=== PATIENT | female | born 1980 | race Caucasian/White ===

== ENCOUNTER 2020-09-06 18:09 | Emergency (ER) | payer OTHER ==
--- OUTSIDE RECORDS SUMMARY | 2020-09-06 18:15 | XMS REPORT | Continuity of Care Document ---
:1980 Author Organization [facility] t Address [address] [place] [address] Care Team Providers Name Role Phone KittyTonio woodward Attending Clinician Gina THOMPSON C Attending Clinician Megan FERMIN L Attending Clinician Doctor Unassigned, Name Attending Clinician Unavailable Problems Condition Condition Condition Status Onset Resolution Last Treating Co mments Source Name Details Category Date Date Treatment Clinician Date 625.9 - Diagnosis Active 2014-02-19 Me moria FEM 03-10 11:07:00 l GENITAL 625.9 - 00:01: Edin n SYM FEM 00 GENITAL SYM Active 03/10/2013 [facility] ELEVATED Diagnosis Active 2011-07-10 M emoria BLOOD 07-09 14:37:00 l PRESSURES ELEVATED 11:12: Her rooney BLOOD 00 PRESSURES Active 07/09/2011 [place] CONTRACTIO Diagnosis Active 2010-072011-06-29 Memoria NS, TWIN 11:02:00 l GESTATIONS 11:20: Edin n CONTRACTIO 00 NS, TWIN GESTATIONS Active 06/28/2011 [facility] ELEVATED Diagnosis Active 2010-072011-06-29 M emoria BLOOD 08-27 11:02:00 l PRESSURE ELEVATED 15:02: Herm ivana AND BLOOD 00 HEADACHE PRESSURE AND HEADACHE Active 06/26/2011 [facility] Diagnosis Active 2011-07-11 Memoria RELATED 08-29 12:42:00 l 00:00: Jasen 00 RELATED Active 08/29/2010 [facility] Vaginal Problem Resolve 2020-08-25 Mem oria delivery d 01:06:45 l (finding) Vaginal Herm ivana delivery (finding) Resolved Problem 08/25/2020 [facility] Cervical Problem Active 2011-07-07 Mem oria 10:30:36 l Cervical Edin n Active Problem 07/07/2011 [facility], [facility] Hiatal Problem Active 2011-07-07 Memor ia hernia 10:30:36 l Hiatal Miranda hernia Active Problem 07/07/2011 [facility], [facility] Hypertensi Problem Active 2011-07-07 M emoria on 10:30:36 l Jasen Hypertensi on Active Problem 2 1gestation al [facility], [facility] Laparoscop Problem Active 2011-07-07 M emoria ic sleeve 10:30:36 l gastrectom Edin n y Laparoscop ic sleeve gastrectom y Active Problem 07/07/2011 [facility], [place] Migraine Problem Active 2011-07-07 Mem oria 10:30:36 l Migraine Edin n Active Problem 07/07/2011 [facility], [facility] Pain Problem Active 2011-07-07 Memor ia 10:30:36 l Pain Jasen Active Problem 07/07/2011 [facility] Sleep Problem Active 2011-07-07 Memor ia apnea 10:30:36 l Sleep Jasen apnea Active Problem 07/07/2011 [facility], [place] Dizziness Problem Active 2020-08-25 Me moria (finding) 01:06:45 l Miranda Dizziness (finding) Active Problem 08/25/2020 [facility] Hiatal Problem Active 2020-08-25 Memor ia hernia 01:06:45 l (disorder) Hiatal Herm ivana hernia (disorder) Active Problem 08/25/2020 [facility] Hyperlipid Problem Active 2020-08-25 M emoria emia 01:06:45 l (disorder) Edin n Hyperlipid emia (disorder) Active Problem 08/25/2020 [facility] Hypertensi Problem Active 2020-08-25 M emoria ve 01:06:45 l disorder, Miranda systemic Hypertensi arterial ve (disorder) disorder, systemic arterial (disorder) Active Problem 08/25/2020 gestation al [facility] Laparoscop Problem Active 2020-08-25 M emoria ic sleeve 01:06:45 l gastrectom Edin n y Laparoscop (procedure ic sleeve ) gastrectom y (procedure ) Active Problem 08/25/2020 [facility] Migraine Problem Active 2020-08-25 Mem oria (disorder) 01:06:45 l Migraine Edin n (disorder) Active Problem 08/25/2020 [facility] Morbid Problem Active 2020-08-25 Memor ia obesity 01:06:45 l (disorder) Morbid Herm ivana obesity (disorder) Active Problem 08/25/2020 [facility] Neck pain Problem Active 2020-08-25 Me moria (finding) 01:06:45 l Neck Miranda pain (finding) Active Problem 08/25/2020 [facility] Pain Problem Active 2020-08-25 Memor ia (finding) 01:06:45 l Pain Miranda (finding) Active Problem 08/25/2020 [facility] Sleep Problem Active 2020-08-25 Memor ia apnea 01:06:45 l (finding) Sleep Edin n apnea (finding) Active Problem 08/25/2020 [facility] Paresthesi Problem Active 2020-08-25 M emoria a 01:06:45 l (finding) Miranda Paresthesi a (finding) Active Problem 08/25/2020 [facility] Cervical Problem Active 2020-08-25 Mem oria spondylosi 01:06:45 l s Cervical Edin n (disorder) spondylosi s (disorder) Active Problem 08/25/2020 [facility] 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 01:06:45 l (disorder) Edin n Hypervitam inosis B6 (disorder) Active Problem 08/25/2020 [facility] NORMAL Diagnosis Active 2011-07-10 Mem oria DELIVERY 14:37:00 l NORMAL Jasen DELIVERY Active [facility] Allergies, Adverse Reactions, Alerts Allergy Allergy Status Severity Reaction(s) Onset Inactive Treating Comm ents Source Name Type Date Date Clinician No Known No Known Active Memori a Medicati Medicati l on on Jasen Allergie Allergie s s Social History Smoking Status Start Date Stop Date Source Social History 2020-08-22 20:15:08 2020-08-22 20:15:08 [facility] Medications Ordered Filled Start Stop Current Ordering Indication Dosage Frequency Signature Comments Components Source Medication Medication Date Date Medication? Clinician (SIG) Name Name baclofen 10 Yes 10 mg = 1 M emoria mg oral 2-22 tab, PO, l tablet 20:28: BID, # 60 Edin n 00 tab, 3 Refill(s), Pharmacy: [id number], 165.1, cm, 08/22/20 14:11:00 [employer], Height, 122.727, kg, 08/22/20 14:11:00 [employer], Weight prazosin 2 Yes 2 mg = 1 Mem oria mg oral 2-22 cap, PO, l capsule 20:26: TID, 0 Miranda 00 Refill(s) tizanidine 2019-07 Yes 2 mg = 1 Mem oria 2 MG Oral 1-13 cap, PO, l Capsule 15:42: Bedtime, # Herm ivana [Zanaflex] 00 30 cap, 3 Refill(s), Pharmacy: [id number], 165.1, cm, 05/13/20 9:19:00 [employer] E[employer]IST, Height, 121.364, kg, 05/13/20 9:19:00 [employer]IST, Weight metoprolol 2019-07 Yes 50 mg, PO, M emoria tartrate 1-13 Daily, 0 l 15:26: Refill(s) Miranda Ibuprofen 2019-0 Yes 4 tablets, Me moria 200 MG Oral 9-25 As needed, l Tablet 22:49: 0 Miranda [Advil] 00 Refill(s) buPROPion 2019-0 Yes One Memoria 75 mg oral 9-25 tablet, l tablet 22:49: Twice a Miranda 00 day morning and afternoon, 0 Refill(s) diazepam 5 2019-0 No 1 tablet, Me moria mg oral 9-25 As needed, l tablet 22:49: 0 Miranda 00 Refill(s) lisinopril 2020-0 Yes 40 mg, Memor ia 40 mg oral 9-25 Once a l tablet 22:49: day, 0 Miranda 00 Refill(s) metFORMIN 2020-0 Yes 500 mg, Memor ia 500 mg oral 9-25 Once a l tablet, 22:49: day, 0 Miranda extended 00 Refill(s) release omeprazole 2019-0 Yes 1-2 Memoria 10 mg oral 9-25 tablets, l delayed 22:49: Daily, 0 Edin n release 00 Refill(s) capsule rosuvastati 2019-0 Yes One Memori a n 20 mg 9-25 tablet, l oral tablet 22:49: Once with H ermann 00 evening meal, 0 Refill(s) topiramate 2019-0 No 1 tablet, Me moria 50 MG Oral 9-25 Twice a l Tablet 22:49: day, 0 Miranda [Topamax] 00 Refill(s) vortioxetin 2019-0 Yes 1 tablet, M emoria e 10 MG 9-25 Once a day l Oral Tablet 22:49: at Edin n [Trintellix 00 bedtime, 0 ] Refill(s) Stadol 2010-07 No Dontae R 2 mg, 1 Gilberto chino 2-30 [place] mL, Route: l 00:48: IVP, Drug form: INJ, Q3H, PRN Pain, Start date: 06/28/11 18:48:00, Duration: 30 day, Stop date: 07/28/11 18:47:00 Ambien 2010-07 No Dontae R 5 mg, 1 Gilberto chino 2-30 [place] tab, l 00:47: Route: PO, Jasen 00 Drug form: TAB, Bedtime, PRN Insomnia, Start date: 06/28/11 18:47:00, Duration: 30 day, Stop date: 07/28/11 18:46:00 famotidine 2010-07 No Dontae R 20 mg, 2 Memoria 2-29 [place] mL, Route: l 20:00: IVP, Drug form: INJ, ONCALL, Start date: 06/28/11 14:00:00, Duration: 30 day, Stop date: 07/28/11 13:59:00 carboprost 2010-07 No Dontae R 250 Mem oria 2-29 [place] microgram, l 20:00: 1 mL, Miranda 00 Route: IM, Drug form: INJ, ONCALL, Start date: 06/28/11 14:00:00, Duration: 30 day, Stop date: 07/28/11 13:59:00 misoprostol 2010-07 No Dontae R 1,000 M emoria 2-29 [place] microgram, l 20:00: 5 tab, Jasen 00 Route: CA, Drug form: TAB, ONCALL, Start date: 06/28/11 14:00:00, Duration: 1 doses or times methylergon 2010-07 No Dontae R 0.2 mg, 1 Memoria ovine 2-29 [place] mL, Route: l 20:00: IM, Drug Jasen form: INJ, ONCALL, Start date: 06/28/11 14:00:00, Duration: 30 day, Stop date: 07/28/11 13:59:00 citric 2010-07 No Dontae R 30 ml, Memor ia acid-sodium - [place] Route: PO, l citrate 20:00: Drug Form: Herm ivana 00 SOLNAMIRAALL, Start date: 06/28/11 14:00:00, Duration: 30 day, Stop date: 07/28/11 13:59:00 oxytocin-ad 2010-07 No Dontae R 20 unit, 2 Memoria d to 2-29 [place] mL, Route: l current IV 20:00: INJ, Drug He rm form: SOLN, ONCALL, Start date: 06/28/11 14:00:00, Duration: 2 day, Stop date: 06/30/11 13:59:00 metoclopram 2010-07 No Dontae R 10 mg, 2 Memoria tamiko 2-29 [place] mL, Route: l 20:00: IVP, Drug Miranda 00 form: INJ, ONCALL, Start date: 06/28/11 14:00:00, Duration: 30 day, Stop date: 07/28/11 13:59:00 ondansetron 2010-07 No Dontae R 4 mg, 2 Memoria 2-29 [place] mL, Route: l 19:23: IVP, Drug Miranda 00 form: INJ, Q8H, PRN Nausea & Vomiting, Start date: 06/28/11 13:23:00, Duration: 30 day, Stop date: 07/28/11 13:22:00 promethazin 2010-07 No Dontae R 12.5 mg, Memoria e 2-29 [place] 0.5 mL, l 19:23: Route: IM, Miranda 00 Drug form: INJ, Q4H, PRN Nausea & Vomiting, Start date: 06/28/11 13:23:00, Duration: 30 day, Stop date: 07/28/11 13:22:00 lidocaine 2010-07 No Dontae R 20 ml, Me moria 1% Route: l 19:23: PERCUT, Jasen 00 Drug Form: INJ, PRN, PRN Other -See Comment, Start date: 06/28/11 13:23:00, Duration: 1 doses or times, Stop date: Limited # of times terbutaline 2010-07 No Dontae R 0.25 mg, Memoria [place] 0.25 mL, l 19:23: Route: Miranda 00 SUB-Q, Drug form: INJ, PRN, PRN Other -See Comment, Start date: 06/28/11 13:23:00, Duration: 1 doses or times, Stop date: Limited # of times ibuprofen 2010-07 No Dontae R 800 mg, 1 Memoria tab, l 19:23: Route: PO, Jasen 00 Drug form: TAB, Q8H, PRN Other -See Comment, Start date: 06/28/11 13:23:00, Duration: 30 day, Stop date: 07/28/11 13:22:00 butorphanol 2010-07 No Dontae R 2 mg, 1 Memoria en mL, Route: l 19:23: IVP, Drug form: INJ, Q2H, PRN Pain Score 6-10, Start date: 06/28/11 13:23:00, Duration: 30 day, Stop date: 07/28/11 13:22:00 acetaminoph 2010-07 No Dontae R 1 tab, Memoria en-hydrocod Route: PO, l one 325 19:23: Drug Form: Herm ivana mg-5 mg 00 TAB, Q4H, oral tablet PRN Pain Score 1-3, Start date: 06/28/11 13:23:00, Duration: 30 day, Stop date: 07/28/11 13:22:00 Lactated 2010-07 No Dontae R 1,000 mL, Memoria Ringers Rate: 100 l Injection 19:23: ml/hr, Edin n IV 1,000 mL 00 Infuse over: 10 hr, Route: IV, Total Volume: 1,000, Bolus for regional anesthesia per unit protocol, Start date: 06/28/11 13:23:00, Duration: 30 day, Stop date: 07/28/11 13:22:00 Lactated 2010-07 No Dontae R 20 unit, M emoria Ringers [place] 1,000 mL, l 1000ml+Tariq 19:23: Rate: 125 H ermann gildardo 20 00 ml/hr, units IV Infuse (Premix) 20 over: 8 unit hr, Route: IV, Total Volume: 1,000 mL, Start date: 06/28/11 13:23:00, Duration: 2 day, Stop date: 06/30/11 13:22:00, Replace Every: 8 hr Lactated 2010-07 No Dontae R 1,000 mL, Memoria Ringers IV en Rate: 125 l 1,000 mL 19:23: ml/hr, Jasen 00 Infuse over: 8 hr, Route: IV, Total Volume: 1,000, Start date: 06/28/11 13:23:00, Duration: 30 day, Stop date: 07/28/11 13:22:00 Adderall 10 2010-07 Yes 1 tab, PO, Memoria mg oral 2-27 BID, PRN, l tablet 23:03: anxiety, Jasen 19 Substituti on Allowed, TAB Non-Formula 2010-07 Yes 1 tab, PO, Memoria ry Home 2-27 Daily, l Medication 23:02: Substituti H ermann 06 on Allowed influenza 2009-07 No SYSTEM 0.5 ml, Mem oria virus 0-13 SYSTEM Route: IM, l vaccine, 03:00: Drug Form: Her rooney inactivated 00 INJ, ONCALL, Start date: 04/11/10 22:00:00, Duration: 1 doses or times Vital Signs Vital Name Observation Time Observation Value Comments Source Systolic (mm Hg) 2020-08-22 20:11:00 Gilberto Aggarwal Diastolic (mm Hg) 2020-08-22 20:11:00 [facility] reza Aggarwal Heart Rate 2020-08-22 20:11:00 [facility] Jasen Respitory Rate 2020-08-22 20:11:00 Memori al Miranda Height 2020-08-22 20:11:00 165.1 cm [facility] Miranda Weight 2020-08-22 20:11:00 [facility] Miranda BMI Calculated 2020-08-22 20:11:00 Memori al Miranda Systolic (mm Hg) 2020-05-13 15:19:00 Gilberto rial Miranda Diastolic (mm Hg) 2020-05-13 15:19:00 Mem orial Jasen Heart Rate 2020-05-13 15:19:00 [facility] Miranda Respitory Rate 2020-05-13 15:19:00 Memori al Miranda Height 2020-05-13 15:19:00 165.1 cm Memorial Jasen Weight 2020-05-13 15:19:00 [facility] Jasen BMI Calculated 2020-05-13 15:19:00 Memori al Miranda Systolic (mm Hg) 2020-04-08 13:17:00 Gilberto rial Jasen Diastolic (mm Hg) 2020-04-08 13:17:00 Mem orial Miranda Heart Rate 2020-04-08 13:17:00 [facility] Jasen Respitory Rate 2020-04-08 13:17:00 Memori al Miranda Height 2020-04-08 13:17:00 167.64 cm Memorial Jasen Weight 2020-04-08 13:17:00 [facility] Jasen BMI Calculated 2020-04-08 13:17:00 Memori al Miranda Systolic (mm Hg) 2020-03-25 15:31:00 Gilberto rial Jasen Diastolic (mm Hg) 2020-03-25 15:31:00 Mem orial Jasen Heart Rate 2020-03-25 15:31:00 [facility] Jasen Respitory Rate 2020-03-25 15:31:00 Memori al Miranda Height 2020-03-25 15:31:00 167.64 cm [facility] Miranda Weight 2020-03-25 15:31:00 [facility] Jasen BMI Calculated 2020-03-25 15:31:00 Memori al Miranda Weight 2011-06-28 18:02:00 [facility] Miranda Height 2011-06-28 18:02:00 167.64 cm Memorial Miranda Height 2011-06-26 21:51:00 170.18 cm Memorial Jasen Weight 2011-06-26 21:51:00 [facility] Jasen Procedures This patient has no known procedures. Encounters Start End Encounter Admission Attending Care Care Encounter Source Date/Time Date/Time Type Type Clinicians Facility Department ID 2020-08-22 2020-08-22 Outpatient SORAYA WhitfieldSENIA [id number] 13:45:00 23:59:59 Jan 04 Tonio 2020-08-16 2020-08-16 Outpatient SORAYA WhitfieldSENIA [id number] 09:15:00 09:15:00 Jan 03 Tonio 2020-08-09 2020-08-09 [facility] [id number] 06:35:36 23:59:00 Encounter Nasra BURKS [id number] [facility] [id number] CENTER AT [id number] FREDERICKJustine 815 [facility] 2020-07-14 2020-07-14 Office [facility] [id number] 13:05:29 14:20:37 Visit Eliza Renee [id number] [place] [id number] Profmert [id number] [facility] [address] [facility] 2020-07-14 2020-07-14 Orders Doctor SHILPA [id number] 00:00:00 00:00:00 Only Unassigned, MARY [id number] [place] [facility] [id number] 2020-05-13 2020-05-13 Outpatient Kittycrissy DARYLSENIA MOREIRAASIFPAUL [id number] 09:15:00 23:59:59 Jan 02 Tonio 2020-04-08 2020-04-08 Outpatient Kittycrissy BESSYPAUL MOREIRAASIFPAUL [id number] 08:15:00 23:59:59 Jan Tonio 2020-03-25 2020-03-25 Outpatient Nahid BESSYPAUL BESSYPAUL [id number] 10:15:00 23:59:59 Jan 00 [facility] Results Test Description Test Time Test Comments Results Result [facility] e Comments HEMATOLOGY 2011-06-28 71.9 [facility] 21:00:00 Miranda HEMATOLOGY 2011-06-28 1.8 [facility] 21:00:00 Miranda HEMATOLOGY 2011-06-28 6.5 [facility] 21:00:00 Miranda HEMATOLOGY 2011-06-28 0.5 [facility] 21:00:00 Miranda HEMATOLOGY 2011-06-28 0.6 [facility] 21:00:00 Miranda HEMATOLOGY 2011-06-28 0.0 [facility] 21:00:00 Miranda HEMATOLOGY 2011-06-28 0.0 [facility] 21:00:00 Miranda IMMUNOLOGY 2011-06-28 Non Reactive [facility] 21:00:00 (06/28/2011 Miranda 15:00:00) IMMUNOLOGY 2011-06-28 Negative [facility] 21:00:00 *NA*(06/28/2011 Miranda 15:00:00) HEMATOLOGY 2011-06-28 90.8 [facility] 21:00:00 Miranda HEMATOLOGY 2011-06-28 34.0 [facility] 21:00:00 Miranda HEMATOLOGY 2011-06-28 32.0 [facility] 21:00:00 Miranda HEMATOLOGY 2011-06-28 10.9 [facility] 21:00:00 Miranda HEMATOLOGY 2011-06-28 8.0 [facility] 21:00:00 Miranda HEMATOLOGY 2011-06-28 21:00:00 Test Item Value Reference Range Interpretation Comme nts MCH (test code = MCH) 30.8 pg 27.0-31.0 N [facility] SvoxnxrKAGEVBCUAH7013-32-84 21:00:70400Odbpuhbv HermannHEMATOLOGY 2011-06-28 21:00:0015.9[facility] QafiibcKLKHXYXHRK5036-29-23 21:00:009.0[facility] KboarldJYHWRMCTRU9112-21-06 21:00:003.52[facility] TgtpzvaJBTXCGFUVX7650-07-49 21:00:0020.6[facility] DlzgxmfNHOYWFUZQI7784-01-15 21:00:000.2[facility] Miranda QLMDEEXKHM6208-21-22 21:00:006.8[facility] AQCYQEY7138-52-94 20:40:00Negative (06/28/2011 14:40:00)[facility] RESULTS 2011-06-28 20:40:00See Note 1(06/28/2011 14:40:00)[facility] HermannIMMUNOLOGY 2011-06-28 20:40:00>500.0[facility] OiciyxeGAOTPGBFMU9633-43-86 20:40:00 Negative *NA*(06/28/2011 14:40:00)[facility] LixueptQGEOHHJQY0661-79-07 22:10:00 4.3[facility] YeuvgooBPSUBXWNF0536-73-13 22:10:42230Dtohgodb HermannCHEMISTRY 2011-06-26 22:10:0016[facility] UedsbjdHUWOHXTEV2928-23-64 22:10:79833Cqfmqywn JknxrmsRRKCOQCAA0382-03-76 22:10:000.2[facility] HylzbuxKBNFXVEXW3239-36-72 22:10:006[facility] BogrbwwLESEOLUGR6807-03-23 22:10:002.4[facility] Jasen APVHHZFQW6539-39-39 22:10:0018[facility] FlwjupmEYCPJNWEY2733-50-65 22:10:0091 Memorial XryzwjcJVJMVVCSP3963-83-51 22:10:04849Mjojtdbb HermannCHEMISTRY 2011-06-26 22:10:000.8[facility] DxdtythPPNFRPHCL8965-42-15 22:10:004.3[facility] JeitnybHGLSUJKSM6027-36-83 22:10:22621Htkxbgek LptquhkWLCOAQLTC9903-61-80 22:10:0023[facility] ZglzpxpNPKLIQDOY2689-21-37 22:10:005.8[facility] Jasen XINWOMPJD4544-30-25 22:10:008.3[facility] JwnmkmeDAJEBTZCO3419-99-43 22:10:000.7 Memorial XipzlucFKXQSLXLZ6055-85-05 22:10:003.4[facility] HermannCHEMISTRY 2011-06-26 22:10:008[facility] EsvstiwLSOLALLFL3424-11-72 22:10:0014.3[facility] WqocdamMHAQFMEIGB9625-86-13 22:10:54587Lqprppzr BxjabjkNDYLSISEHI9306-81-58 22:10:00 Test Item Value Reference Range Interpretation Comments PT (test code = PT) 12.0 s 12.0-14.7 N [facility] DjywlmbUMZTSFJFDH1980-03-78 22:10:00 Test Item Value Reference Range Interpretation Comments PTT (test code = PTT) 25.6 s 22.9-35.8 N Memorial LeopdzvRDVQQHSCOP8300-08-06 22:10:000.88[facility] HermannHEMATOLOGY 2011-06-26 22:10:007.5[facility] FsphbkfQHUFBKQVHN3801-35-84 22:10:0090.5[facility] OntgyrjHFYVEXTAHR1662-11-54 22:10:00859Gthasalm JcuczxxNXTOVRLKMA5749-94-68 22:10:00 Test Item Value Reference Range Interpretation Comments MCH (test code = MCH) 31.1 pg 27.0-31.0 H Memorial RbmftjnTYZXCWJDMZ3549-31-83 22:10:0016.2[facility] HermannHEMATOLOGY 2011-06-26 22:10:0034.4[facility] RljntyhFQEGQKMTQU1244-00-38 22:10:0032.2[facility] LktkhijLZRVAJIFZA1511-21-03 22:10:0011.1[facility] EvnovbdTAIICYSXEE8751-69-19 22:10:006.7[facility] NqoddgpQWOFMBLFGE4185-61-29 22:10:003.55[facility] Jasen GQDQNZCLJH2378-74-64 22:10:000.6[facility] DroasumUCRNSNUILS4680-14-87 22:10:004.4 [facility] ScsribvHHBYPAFDST4766-65-72 22:10:000.3[facility] HermannHEMATOLOGY 2011-06-26 22:10:000.6[facility] IqdxpjsIXYQLHGNHN5237-47-55 22:10:001.7[facility] IsybjsaPUXQOJHIEE3542-59-88 22:10:000.0[facility] PjeqxyyLUZKJHPTNU1588-11-54 22:10:000.0[facility] IphmdzyCUSADXFFSC6532-90-95 22:10:008.5[facility] Miranda CECZHEQHSK0227-35-73 22:10:0025.6[facility] YymnzkfKFSRACIJBC7429-55-70 22:10:00 65.0[facility] IprfgteWLZMRWNHVS2059-35-12 22:10:000-2 /HPF (06/26/2011 16:10:00) [facility]KogamacLMKYQWYFGI2825-46-10 22:10:00Few /HPF (06/26/2011 16:10:00) [facility] CenterLikokpmOKTKLPHGYI1639-56-38 22:10:00None Seen (06/26/2011 16:10:00) [facility] CenterKkiongiRRSJWVALZK9850-61-68 22:10:00Occasional /LPF (06/26/2011 16:10:00)[facility] CenterKscquwiTWRYSYBJDG3950-47-22 22:10:00 Test Item Value Reference Range Interpretation Comments UA Spec Grav (test code = UA Spec 1.010 1 N Grav) [facility] CenterGfhoxdkORPLKLCEDL8193-45-81 22:10:00 Test Item Value Reference Range Interpretation Comments UA pH (test code = UA pH) 7.0 1 5.0-8.0 N [facility] CenterEhpprozOWXCAWOUFQ6815-44-91 22:10:00Negative mg/dL (06/26/2011 16:10:00)[facility] CenterOgobhofDFXYSCSGEQ9762-12-72 22:10:00Negative mg/dL (06/26/2011 16:10:00)[facility] CenterNuqzsuwKHVXYJPWTJ3742-10-93 22:10:00Negative mg/dL *NA*(06/26/2011 16:10:00)[facility] CenterFcuscacUOLASSTEBU1127-69-72 22:10:00Negative *NA*(06/26/2011 16:10:00)[facility] CenterRaonkfuLFMHEDXTOV7103-04-73 22:10:000.2 [facility] CenterSmtemffSMNAWBNOCT4588-32-82 22:10:00Negative (06/26/2011 16:10:00) [facility] CenterVarnhztDAXDENLQIK4531-13-35 22:10:00Negative (06/26/2011 16:10:00) [facility] CenterWuitvflKAUPBGYHSP2344-82-06 22:10:00Negative (06/26/2011 16:10:00) [facility] CenterKyovbmrVHHMISGSBE4574-80-38 22:10:00Yellow *NA*(06/26/2011 16:10:00) [facility] CenterRcsinrlODRUOKQMFE1035-36-37 22:10:00Clear (06/26/2011 16:10:00)[facility] Jasen
[2020-09-06 19:07] LABS: Absolute Lymphocytes (CBC) 1.7 K/uL (0.7-4.9); Hematocrit 33.8 % (36.0-45.0); Lymphocytes % 26.9 % (15.3-44.8); MPV 7.7 fL (7.6-11.3); RBC Red Blood Cell Count 3.79 M/uL (3.86-4.86)
--- NOTE | 2020-09-06 19:14 | RAD REPORT ---
EXAM DESCRIPTION: RAD - Chest Single View - 09/06/2020 7:06 pm CLINICAL HISTORY: syncope, hypertension, shortness of breath COMPARISON: None TECHNIQUE: AP portable chest image was obtained 09/06/2020 7:06 pm . FINDINGS: Lung volumes are low. Large body habitus further limits the examination. No acute lung par enchymal process seen. No failure or volume overload. Heart and vasculature are normal. No measurable pleural effusion and no pneumothorax. No acute bony abnormality seen. No acute aortic findings suspe cted. IMPRESSION: No acute cardiopulmonary process.
[2020-09-06 19:22] LABS: Protime INR 0.92
[2020-09-06] MEDS ORDERED: NA CHLORIDE 0.9% 1,000 ML ONE (19:47)
[2020-09-06 19:54] LABS: ALT/SGPT 25 U/L (12-78); AST/SGOT 15 U/L (15-37); Albumin 2.9 g/dL (3.4-5.0); Alkaline Phosphatase 47 U/L (45-117); BUN Blood Urea Nitrogen 15 mg/dL (7-18); Bicarbonate 23 mmol/L (21-32); Bilirubin Direct < 0.1 mg/dL (0-0.2); Bilirubin Total 0.1 mg/dL (0.2-1.0); Glucose Level 127 mg/dL (74-106); Magnesium 1.9 mg/dL (1.8-2.4); NT PRO-BNP 125 pg/mL (<125); Potassium 3.9 mmol/L (3.5-5.1); Protein, Total 6.2 g/dL (6.4-8.2); Sodium Level 142 mmol/L (136-145); Troponin (Emerg Dept Use Only) < 0.02 ng/mL (0.0-0.045)
--- NOTE | 2020-09-06 20:04 | RAD REPORT ---
EXAM DESCRIPTION: CT - Head Brain Wo Cont - 09/06/2020 7:14 pm CLINICAL HISTORY: AMS COMPARISON: <Comparisons> TECHNIQUE: Axial 5 mm thick images of the head were obtained without IV contrast. All CT scans are performed using dose optimization technique as appropriate and may include automated exposure control or mA/KV adjustment according to patient size. FINDINGS: No intracranial hemorrhage, mass, edema or shift of mid-line structures. No acute infarcti on changes seen. No abnormal extra-axial fluid collections. Ventricles are normal. Mastoid air cells and visualized portions of the paranasal sinuses are clear. No acute bony findings. IMPRESSION: Negative non-contrast CT head examination.
[2020-09-06 21:15] LABS: Barbiturates NEGATIVE (NEGATIVE); Benzodiazepines NEGATIVE (NEGATIVE); Cocaine NEGATIVE (NEGATIVE); METHAMPHETAM NEGATIVE (NEGATIVE); Methadone NEGATIVE (NEGATIVE); Opiates NEGATIVE (NEGATIVE); Phencyclidine NEGATIVE (NEGATIVE); THC Cannibis NEGATIVE (NEGATIVE)
--- NOTE | 2020-09-06 21:34 | EDPHYS ---
Physician Documentation [facility] Name: Shelley Frank Age: 40 yrs Sex: Female : 1980 Arrival Date: 09/06/2020 Time: 18:18 Bed 20 Private MD: ED Physician Nitish Avila HPI: 09/06 19:44 This 40 yrs old Female presents to ER via EMS with complaints of jmm syncope/seizure. 19:44 The patient has experienced syncope. Onset: The symptoms/episode began/occurred jmm acutely, just prior to arrival, today. Associated injury: The patient did not suffer any apparent associated injury. Associated signs and symptoms: Pertinent positives: dizziness, Pertinent negatives: abdominal pain. This is a 40 year old female with a history of POTS, anxiety, DM, HTN that presents to the ED after becoming unconscious at a restaurant. Patient states states she awoke to EMS being called. states he witnessed seizure like convulsions. states the patient did urinate on herself. Denies dental/tongue injury. . 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 - Social history:: Smoking status: Patient denies any tobacco usage or history of. Smoking status: Patient reports the use of cigarette tobacco products, smokes one pack cigarettes per day. ROS: 19:44 Constitutional: Negative for fever, chills, and weight loss, Cardiovascular: Negative jmm for chest pain, palpitations, and edema, Respiratory: Negative for shortness of breath, cough, wheezing, and pleuritic chest pain. 19:44 Neuro: Positive for seizure activity, syncope. 19:44 All other systems are negative. Exam: 19:44 Constitutional: This is a well developed, well nourished patient who is awake, alert, jmm and in no acute distress. Head/Face: atraumatic. Eyes: EOMI, no conjunctival erythema appreciated ENT: Moist Mucus Membranes Neck: Trachea midline, Supple Chest/axilla: Normal chest wall appearance and motion. Cardiovascular: Regular rate and rhythm. No edema appreciated Respiratory: Normal respirations, no respiratory distress appreciated Abdomen/GI: Non distended, soft Back: Normal ROM Skin: General appearance color normal MS/ Extremity: Moves all extremities, no obvious deformities appreciated, no edema noted to the lower extremities 19:44 Neuro: Orientation: is normal, Mentation: is normal, Memory: is normal. 19:44 Psych: Behavior/mood is pleasant, cooperative. Vital Signs: 18:38 BP 84 / 48; Pulse 112; Resp 20; Pulse Ox 91% on R/A; bw 18:45 BP 120 / 76; Pulse 73; Resp 16; Temp 97.9; Pulse Ox 99% on R/A; Pain 6/10; hb 18:54 BP 103 / 58; Pulse 76; Resp 22; Pulse Ox 100% on 2 lpm NC; Pain 0/10; bw 20:30 BP 109 / 54; Pulse 67; Resp 16; Pulse Ox 100% ; wh 21:45 BP 101 / 64; Pulse 72; Resp 18; Pulse Ox 98% on R/A; wh MDM: 18:29 Patient medically screened. [facility] 21:29 Data reviewed: vital signs, nurses notes. Counseling: I had a detailed discussion with sridhar the patient and/or guardian regarding: the historical points, exam findings, and any diagnostic results supporting the discharge/admit diagnosis, lab results, radiology results, the need for outpatient follow up, to return to the emergency department if symptoms worsen or persist or if there are any questions or concerns that arise at home. ED course: Patient is alert, states she is feeling better. Differential would include syncope vs seizure. Advised of the need to follow up with neuro. I discussed the need for observation due to the different character. Patient states she will return to the ED if symptoms return or worsen. . 09/06 18:30 Order name: Basic Metabolic Panel [facility] 09/06 18:30 Order name: CBC with Diff [facility] 09/06 18:30 Order name: LFT's; Complete Time: 19:58 [facility] 09/06 18:30 Order name: Magnesium; Complete Time: 19:58 [facility] 09/06 18:30 Order name: NT PRO-BNP; Complete Time: 19:58 [facility] 09/06 18:30 Order name: PT-INR; Complete Time: 19:37 [facility] 09/06 18:30 Order name: Troponin (emerg Dept Use Only); Complete Time: 19:58 [facility] 09/06 18:30 Order name: Basic Metabolic Panel; Complete Time: 19:58 [facility] 09/06 18:30 Order name: CBC with Automated Diff; Complete Time: 19:18 [facility] 09/06 18:45 Order name: Urine Drug Screen [facility] 09/06 18:45 Order name: Acetaminophen [facility] 09/06 18:46 Order name: ETOH Level; Complete Time: 19:55 [facility] 09/06 18:46 Order name: Ptt, Activated; Complete Time: 19:37 [facility] 09/06 18:46 Order name: Salicylate; Complete Time: 19:55 [facility] 09/06 18:30 Order name: XRAY Chest (1 view); Complete Time: 19:18 [facility] 09/06 18:30 Order name: EKG; Complete Time: 18:31 [facility] 09/06 18:30 Order name: Cardiac monitoring; Complete Time: 18:45 [facility] 09/06 18:30 Order name: EKG - Nurse/Tech; Complete Time: 18:45 [facility] 09/06 18:30 Order name: IV Saline Lock; Complete Time: 18:59 [facility] 09/06 18:30 Order name: Labs collected and sent; Complete Time: 18:59 [facility] 09/06 18:30 Order name: O2 Per Protocol; Complete Time: 18:45 [facility] 09/06 18:30 Order name: O2 Sat Monitoring; Complete Time: 18:45 [facility] 09/06 18:46 Order name: CT Head Brain wo Cont [facility] 09/06 18:46 Order name: Urine Drug Screen; Complete Time: 21:19 [facility] 09/06 19:08 Order name: Acetaminophen Level; Complete Time: 19:58 [facility] 09/06 20:05 Order name: CT; Complete Time: 20:06 [facility] 09/06 20:54 Order name: Urine Dipstick--Ancillary (enter results) mw2 Administered Medications: 19:38 Drug: NS 0.9% 1000 ml Route: IV; Rate: 1 bolus; Site: left antecubital; 21:46 Follow up: Response: No adverse reaction; IV Status: Completed infusion Disposition: 09/07 07:00 Co-signature as Attending Physician, Nitish Avila MD. rn Disposition: 09/06/20 21:33 Discharged to Home. Impression: Syncope and collapse, Epilepsy and recurrent seizures. - Condition is Stable. - Discharge Instructions: Seizure, Adult, Syncope. - Family Work Release, Medication Reconciliation Form, Thank You Letter, Antibiotic Education, Prescription Opioid Use form. - Follow up: Pedro Reagan MD; When: 2 - 3 days; Reason: Recheck today's complaints, Continuance of care, Re-evaluation by your physician. Follow up: Jan Whitfield MD; When: 2 - 3 days; Reason: Recheck today's complaints, Continuance of care, Re-evaluation by your physician. Signatures: Dispatcher [employer] EDCT Ariel Nguyen PA PA [facility] Nitish Avila MD MD rn Baxter, Heather, RN RN hb Habalo, Winsy, RN RN wh Webb, Bethany, RN RN Corrections: (The following items were deleted from the chart) 09/06 19:08 18:46 Acetaminophen Level ordered. EDCT EDCT 21:37 21:33 09/06/2020 21:33 Discharged to Home. Impression: Syncope and collapse; Epilepsy jmm and recurrent seizures. Condition is Stable. Forms are Medication Reconciliation Form, Thank You Letter, Antibiotic Education, Prescription Opioid Use. Follow up: Pedro Reagan; When: 2 - 3 days; Reason: Recheck today's complaints, Continuance of care, Re-evaluation by your physician. [facility] 21:46 21:37 09/06/2020 21:33 Discharged to Home. Impression: Syncope and collapse; Epilepsy wh and recurrent seizures. Condition is Stable. Discharge Instructions: Seizure, Adult, Syncope. Forms are Medication Reconciliation Form, Thank You Letter, Antibiotic Education, Prescription Opioid Use, Family Work Release. Follow up: Jan Whitfield; When: 2 - 3 days; Reason: Recheck today's complaints, Continuance of care, Re-evaluation by your physician. [facility]
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
[2020-09-06 23:52] LABS: Urine Blood TRACE (NEG); Urine Glucose NEGATIVE (NEG); Urine Protein NEGATIVE (NEG); Urine pH 5.5 (5.0-7.0)
[2020-09-07 15:31] VITALS: TEMP 97.9
[2020-09-07 15:35] VITALS: BP 101/64; O2SAT 98
--- NOTE | 2020-09-08 05:16 | EKG ---
Test Date: 2020-09-06 Test Time: 18:41:59 Radiology Administrator: JOSE MARTIN MEASUREMENT RESULTS: Intervals: Rate: 77 PA: 148 QRSD: 86 QT: 398 QTc: 450 Solomon: P: 61 PA: 148 QRS: 54 T: 20 INTERPRETIVE STATEMENTS: Normal sinus rhythm Nonspecific ST and T wave abnormality Abnormal ECG No previous ECG available for comparison Electronically Signed On 09-08-20 05:11:51 FUR FARMER by Benjamín Wong
== END 2020-09-06 21:46 | disposition home or self-care (01) ==
LOC: ER 18:09
DX: G40.802 Other epilepsy, not intractable, without status epilepticus (principal); I10 Essential (primary) hypertension; E11.9 Type 2 diabetes mellitus without complications; F17.210 Nicotine dependence, cigarettes, uncomplicated
CPT/HCPCS: 93005; 85025; 80048; 36415; 80320; 83735; 80329 ×2; 85610; 80076; 80307 ×8; 85730; 81003; 84484; 83880; 70450; 71045; J7030; 96360; 96361; 99284

== ENCOUNTER 2021-04-16 04:03 | Emergency (ER) | payer OTHER ==
[2021-04-16] MEDS ORDERED: NA CHLORIDE 0.9% 1,000 ML ONE ×2 (04:55→05:30)
[2021-04-16] MEDS ORDERED: ALBUTEROL INHALER 60 PUFF/8 GM IH ONE (04:55)
[2021-04-16] MEDS ORDERED: PROMETHAZINE INJ 25 MG/ML AMP ONE (04:55)
[2021-04-16 05:02] LABS: Urine Blood Negative (Negative); Urine Glucose Negative (Negative); Urine Protein 1+ (Negative); Urine Specific Gravity >=1.030 (1.005-1.030)
[2021-04-16 05:18] LABS: Absolute Lymphocytes (CBC) 1.6 K/uL (0.7-4.9); Hematocrit 43.3 % (36.0-45.0); Lymphocytes % 21.3 % (15.3-44.8); MPV 8.6 fL (7.6-11.3); Protime INR 0.97; RBC Red Blood Cell Count 4.83 M/uL (3.86-4.86)
[2021-04-16 05:54] LABS: ALT/SGPT 46 U/L (12-78); AST/SGOT 47 U/L (15-37); Albumin 3.2 g/dL (3.4-5.0); Alkaline Phosphatase 49 U/L (45-117); BUN Blood Urea Nitrogen 18 mg/dL (7-18); Bicarbonate 21 mmol/L (21-32); Bilirubin Direct 0.2 mg/dL (0-0.2); Bilirubin Total 0.3 mg/dL (0.2-1.0); Glucose Level 172 mg/dL (74-106); Lipase 126 U/L (73-393); Magnesium 1.9 mg/dL (1.8-2.4); NT PRO-BNP 12 pg/mL (<125); Potassium 4.2 mmol/L (3.5-5.1); Protein, Total 7.3 g/dL (6.4-8.2); Sodium Level 139 mmol/L (136-145); Troponin (Emerg Dept Use Only) < 0.02 ng/mL (0.0-0.045)
--- NOTE | 2021-04-16 07:36 | RAD REPORT ---
EXAM DESCRIPTION: CT - Chest For Pe Angio - 04/16/2021 6:55 am CLINICAL HISTORY: Shortness of breath COMPARISON: April 16, 2021 chest x-ray TECHNIQUE: Dynamically enhanced axial 3 mm thick images of the chest were obtained during administra tion of <100> mL Isovue 370 IV contrast. Coronal and oblique reconstruction images were generated and reviewed. Exam utilizes a protocol for optimal evaluation of pulmonary arterial tree. Maximum intensity projections 3D imaging was utilized All CT scans are performed using dose optimization technique as appropriate and may include automated exposure control or mA/KV adjustment according to patient size. FINDINGS: The opacification of pulmonary arteries is suboptimal. A pulmonary embolus is not seen. A thoracic aortic aneurysm is not noted. A pleural effusion is not seen. A pericardial effusion is not seen. Moderate bilateral ground-glass opacities within the lungs IMPRESSION: No gross evidence for a pulmonary embolism. Moderate bilateral ground-glass opacities within the lungs may indicate Covid pneumonia
--- NOTE | 2021-04-16 08:12 | RAD REPORT ---
EXAM DESCRIPTION: Dar Single View04/16/2021 5:08 am CLINICAL HISTORY: Cough COMPARISON: August 2020 FINDINGS: Moderate bilateral pulmonary opacities. The heart is normal size IMPRESSION: Moderate bilateral pulmonary opacities may indicate pneumonia
--- NOTE | 2021-04-16 08:35 | EDPHYS ---
Physician Documentation [facility] Name: Shelley Frank Age: 40 yrs Sex: Female : 1980 Arrival Date: 04/16/2021 Time: 04:04 Bed 5 Private MD: ED Physician Elmer Brewer HPI: 04/16 04:22 This 40 yrs old Female presents to ER via Wheelchair with complaints of mh7 Shortness Of Breath, Vomiting. 04:22 The patient has shortness of breath at rest, with light activity. Onset: The mh7 symptoms/episode began/occurred 3 day(s) ago. Duration: The symptoms are intermittent, with no pattern. The patient's shortness of breath is aggravated by coughing, exertion, light activity, is alleviated by nothing. Associated signs and symptoms: Pertinent positives: non-productive cough, fever, nausea, vomiting, Pertinent negatives: chest pain, productive cough, diaphoresis, dizziness, hemoptysis, loss of consciousness, numbness in extremities, visual changes. Severity of symptoms: At their worst the symptoms were moderate 2 day(s) ago, in the emergency department the symptoms are unchanged. Patient reports that she tested positive for Covid on 04/07/2021.. 07:04 Reports that she recently finished a course of azithromycin and steroids.. 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 - Social history:: Smoking status: Patient/guardian denies using tobacco, the patient reports quitting approximately 2 years ago. ROS: 04:22 Eyes: Negative for injury, pain, redness, and discharge, ENT: Negative for injury, mh7 pain, and discharge, Neck: Negative for injury, pain, and swelling, Cardiovascular: Negative for chest pain, palpitations, and edema. 04:22 Back: Negative for injury and pain, : Negative for injury, bleeding, discharge, and swelling, MS/Extremity: Negative for injury and deformity, Skin: Negative for injury, rash, and discoloration, Neuro: Negative for headache, weakness, numbness, tingling, and seizure, Psych: Negative for depression, anxiety, suicide ideation, homicidal ideation, and hallucinations, Allergy/Immunology: Negative for hives, rash, and allergies, Endocrine: Negative for neck swelling, polydipsia, polyuria, polyphagia, and marked weight changes, Hematologic/Lymphatic: Negative for swollen nodes, abnormal bleeding, and unusual bruising. 04:22 Abdomen/GI: Negative for abdominal pain, diarrhea, constipation, abdominal cramps, abdominal distension, anorexia, dysphagia, hematemesis, black/tarry stool, rectal pain, rectal bleeding, bowel incontinence, flatulence. Exam: 04:22 Head/Face: Normocephalic, atraumatic. Eyes: Pupils equal round and reactive to light, mh7 extra-ocular motions intact. Lids and lashes normal. Conjunctiva and sclera are non-icteric and not injected. Cornea within normal limits. Periorbital areas with no swelling, redness, or edema. Neck: Trachea midline, no thyromegaly or masses palpated, and no cervical lymphadenopathy. Supple, full range of motion without nuchal rigidity, or vertebral point tenderness. No Meningismus. Chest/axilla: Normal chest wall appearance and motion. Nontender with no deformity. No lesions are appreciated. 04:22 Respiratory: Lungs have equal breath sounds bilaterally, clear to auscultation and percussion. No rales, rhonchi or wheezes noted. No increased work of breathing, no retractions or nasal flaring. Abdomen/GI: Soft, non-tender, with normal bowel sounds. No distension or tympany. No guarding or rebound. No evidence of tenderness throughout. Back: No spinal tenderness. No costovertebral tenderness. Full range of motion. Skin: Warm, dry with normal turgor. Normal color with no rashes, no lesions, and no evidence of cellulitis. MS/ Extremity: Pulses equal, no cyanosis. Neurovascular intact. Full, normal range of motion. Neuro: Awake and alert, GCS 15, oriented to person, place, time, and situation. Cranial nerves II-XII grossly intact. Motor strength 5/5 in all extremities. Sensory grossly intact. Cerebellar exam normal. Normal gait. Psych: Awake, alert, with orientation to person, place and time. Behavior, mood, and affect are within normal limits. 04:22 Constitutional: The patient appears in no acute distress, alert, awake, uncomfortable. 04:22 Cardiovascular: Rate: tachycardic, Rhythm: regular, Pulses: no pulse deficits are appreciated, Heart sounds: normal, normal S1and S2, Edema: is not appreciated, JVD: is not appreciated. Vital Signs: 04:16 BP 117 / 82; Pulse 120; Resp 20 S; Temp 99.6(O); Pulse Ox 94% on R/A; Weight 119.75 kg bb (R); Height 5 ft. 6 in. (167.64 cm) (R); Pain 7/10; 06:18 BP 123 / 74; Pulse 110; Resp 20 S; Temp 99.6; Pulse Ox 95% ; Pain 3/10; sj1 07:35 BP 127 / 67; Pulse 98; Resp 22; Pulse Ox 97% on R/A; Pain 6/10; tw5 08:06 BP 124 / 77; Pulse 97; Resp 26; Pulse Ox 93% on R/A; Pain 6/10; tw5 08:31 Pulse 126; Resp 22; Pulse Ox 94% on R/A; tw5 09:01 BP 131 / 84; Pulse 99; Resp 24; Temp 99.3(O); Pulse Ox 95% on R/A; Pain 6/10; tw5 04:16 Body Mass Index 42.61 (119.75 kg, 167.64 cm) bb 07:35 chest, and achy all over tw5 08:31 ambulating tw5 MDM: 07:04 Transition of care: After a detail discussion of the patient's case, care is mh7 transferred to Elmer Brewer MD. 08:07 Data reviewed: vital signs, nurses notes, lab test result(s), radiologic studies. ED kdr course: Patient states that she was initially symptomatic on April 04. She got tested on April 07 and was noted to be positive at that time. At this time she is 12 days from onset of symptoms so out of the [employer] window. 08:34 Patient medically screened. [facility] 04/16 04:20 Order name: Basic Metabolic Panel [facility] 04/16 04:20 Order name: CBC with Diff; Complete Time: 05:33 [facility] 04/16 04:20 Order name: LFT's; Complete Time: 06:13 [facility] 04/16 04:20 Order name: Magnesium; Complete Time: 06:13 [facility] 04/16 04:20 Order name: NT PRO-BNP; Complete Time: 06:13 [facility] 04/16 04:20 Order name: PT-INR; Complete Time: 05:40 [facility] 04/16 04:20 Order name: Troponin (emerg Dept Use Only); Complete Time: 06:13 [facility] 04/16 04:20 Order name: XRAY Chest (1 view) [facility] 04/16 04:21 Order name: Basic Metabolic Panel; Complete Time: 06:13 [facility] 04/16 04:22 Order name: Lipase; Complete Time: 06:13 [facility] 04/16 05:02 Order name: Urine Dipstick-Ancillary [facility] 04/16 05:02 Order name: Urine Dipstick-Ancillary; Complete Time: 05:33 [facility] 04/16 06:14 Order name: CT Chest For PE Angio; Complete Time: 07:50 [facility] 04/16 07:02 Order name: Urine --Ancillary (enter results) [facility] 04/16 04:20 Order name: EKG; Complete Time: 04:21 [facility] 04/16 04:20 Order name: Cardiac monitoring; Complete Time: 05:11 [facility] 04/16 04:20 Order name: EKG - Nurse/Tech; Complete Time: 05:11 [facility] 04/16 04:20 Order name: IV Saline Lock; Complete Time: 05:11 [facility] 04/16 04:20 Order name: Labs collected and sent; Complete Time: 05:11 [facility] 04/16 04:20 Order name: O2 Per Protocol; Complete Time: 05:11 [facility] 04/16 04:20 Order name: O2 Sat Monitoring; Complete Time: 05:11 [facility] 04/16 04:20 Order name: Urine Dipstick-Ancillary (obtain specimen); Complete Time: 05:11 [facility] 04/16 04:20 Order name: Urine Test (obtain specimen); Complete Time: 07:00 mh7 04/16 08:07 [place] [facility]: Ambulate patient and record vital signs ; Complete Time: 08:31 kdr Administered Medications: 05:09 Drug: Albuterol HFA Inhaler 2 puffs Route: Inhalation; sj1 05:09 Drug: Phenergan (promethazine) 12.5 mg Route: IVP; Site: left antecubital; sj1 06:32 Follow up: Response: No adverse reaction sj1 05:10 Drug: NS 0.9% 1000 ml Route: IV; Rate: 1000 ml; Site: left antecubital; sj1 07:39 Follow up: IV Status: Completed infusion tw5 06:21 Drug: NS 0.9% 1000 ml Route: IV; Rate: 1000 ml; Site: left antecubital; sj1 07:39 Follow up: Response: No adverse reaction; IV Status: Completed infusion tw5 08:14 Drug: ProTONIX (pantoprazole) 40 mg Route: IVP; Site: left antecubital; tw5 08:31 Follow up: Response: No adverse reaction tw5 Disposition Summary: 04/16/21 08:34 Discharge Ordered Location: Home kdr Problem: new kdr Symptoms: have improved kdr Condition: Stable kdr Diagnosis - Shortness of breath kdr - SARS-associated coronavirus as the cause of diseases classified elsewhere kdr - Viral pneumonia, unspecified kdr Followup: kdr - With: Private Physician - When: 2 - 3 days - Reason: If symptoms return, Further diagnostic work-up, Recheck today's complaints, Continuance of care, Re-evaluation by your physician Discharge Instructions: - Discharge Summary Sheet kdr - Shortness of Breath, Adult, [id number] kdr - Cough, Adult, [id number] kdr - COVID-19 kdr Forms: - Medication Reconciliation Form kdr - Thank You Letter kdr - Prescription Opioid Use kdr Prescriptions: - Promethazine VC-Codeine 6.25-5-10 mg/5 mL Oral syrup - take 5 milliliter by ORAL route every 4-6 hours as needed, not to exceed 30 mL kdr in 24 hours; 200 milliliter; Refills: 0, Product Selection Permitted - Tessalon Perles 100 mg Oral Capsule - take 1 capsule by ORAL route every 8 hours As needed; 15 capsule; Refills: 0, kdr Product Selection Permitted Signatures: Dispatcher [employer] Elmer Haddad MD MD kdr Chelsy Tejeda RN RN bb Dilan Warren MD MD [facility] Morenita Jones RN RN 1 Tosin Cortes tw5
--- NOTE | 2021-04-16 08:35 | ER ---
Nurse's Notes [facility] Name: Shelley Frank Age: 40 yrs Sex: Female : 1980 Arrival Date: 04/16/2021 Time: 04:04 Bed 5 Private MD: Diagnosis: Shortness of breath;SARS-associated coronavirus as the cause of diseases classified elsewhere;Viral pneumonia, unspecified Presentation: 04/16 04:16 Chief complaint: Patient states: she was diagnosed with covid around 10 days ago with bb symptoms of fever, cough, body aches but now she is vomiting and feels like she cannot get a deep breath. Coronavirus screen: Client reports previous positive COVID test result. Ebola Screen: No symptoms or risks identified at this time. Initial Sepsis Screen: Does the patient meet any 2 criteria? No. Patient's initial sepsis screen is negative. Does the patient have a suspected source of infection? Yes: Other: Covid positive. Risk Assessment: Do you want to hurt yourself or someone else? Patient reports no desire to harm self or others. Onset of symptoms was April 16, 2021. 04:16 Method Of Arrival: Wheelchair bb 04:16 Acuity: LEONEL 3 bb Triage Assessment: 06:19 General: Appears in no apparent distress. Respiratory: Onset: The symptoms/episode sj1 began/occurred 04/07/21, the patient has moderate shortness of breath. 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 - Social history:: Smoking status: Patient/guardian denies using tobacco, the patient reports quitting approximately 2 years ago. Screenin:18 Abuse screen: Denies threats or abuse. Denies injuries from another. Nutritional sj1 screening: No deficits noted. Tuberculosis screening: No symptoms or risk factors identified. Fall Risk None identified. Assessment: 06:14 Cardiovascular: Rhythm is regular. Respiratory: Airway is patent Trachea midline sj1 Respiratory effort is even, unlabored. 06:15 Reassessment: Patient appears in no apparent distress at this time. General: Appears in sj1 no apparent distress. Behavior is cooperative, appropriate for age. Pain: Complains of pain in gen body aches. Neuro: No deficits noted. Respiratory: Reports shortness of breath. GI: Reports nausea. : No deficits noted. EENT: No deficits noted. Derm: No deficits noted. Musculoskeletal: Reports gen body aches. 07:35 General: Reports feeling ill for > 3 days, fatigue for >3 days, " My and I tw5 tested positive for last Saturday, and I have just not recovered' Patient states that her sputum has a pink tinge to it, she has been feeling extreme fatigued, it hurts to cough, and the coughing is now causing her to throw up. Respiratory: Airway is patent Trachea midline Respiratory effort is even, unlabored, Sputum is pink Breath sounds are coarse bilaterally. Breath sounds are diminished in right middle lobe, left lower lobe, right lower lobe and right posterior middle lobe. 08:06 General: Provider at the bedside. Discussed with patient results. Nursing staff to tw5 ambulate the patient and watch vital signs. . 08:30 General: Patient ambulated to restroom without difficult. Pulse ox 94%, heart rate 126 tw5 BMP. 09:01 Reassessment: Patient appears in no apparent distress at this time. No changes from tw5 previously documented assessment. Patient and/or family updated on plan of care and expected duration. Pain level reassessed. Patient is alert, oriented x 3, equal unlabored respirations, skin warm/dry/pink. Patient states symptoms have improved. Vital Signs: 04:16 BP 117 / 82; Pulse 120; Resp 20 S; Temp 99.6(O); Pulse Ox 94% on R/A; Weight 119.75 kg bb (R); Height 5 ft. 6 in. (167.64 cm) (R); Pain 7/10; 06:18 BP 123 / 74; Pulse 110; Resp 20 S; Temp 99.6; Pulse Ox 95% ; Pain 3/10; sj1 07:35 BP 127 / 67; Pulse 98; Resp 22; Pulse Ox 97% on R/A; Pain 6/10; tw5 08:06 BP 124 / 77; Pulse 97; Resp 26; Pulse Ox 93% on R/A; Pain 6/10; tw5 08:31 Pulse 126; Resp 22; Pulse Ox 94% on R/A; tw5 09:01 BP 131 / 84; Pulse 99; Resp 24; Temp 99.3(O); Pulse Ox 95% on R/A; Pain 6/10; tw5 04:16 Body Mass Index 42.61 (119.75 kg, 167.64 cm) bb 07:35 chest, and achy all over tw5 08:31 ambulating tw5 ED Course: 04:04 Patient arrived in ED. bp1 04:06 Dilan Warren MD is Attending Physician. mh7 04:19 Triage completed. bb 04:19 Arm band placed on Patient placed in an exam room, on a stretcher, on pulse oximetry. bb 05:08 XRAY Chest (1 view) In Process Unspecified. EDMS 05:11 Basic Metabolic Panel Sent. sj1 05:11 CBC with Diff Sent. sj1 05:11 LFT's Sent. sj1 05:11 Magnesium Sent. sj1 05:11 NT PRO-BNP Sent. sj1 05:11 Troponin (emerg Dept Use Only) Sent. sj1 05:11 PT-INR Sent. sj1 05:12 Basic Metabolic Panel Sent. sj1 05:12 Lipase Sent. sj1 05:12 Urine Dipstick-Ancillary Sent. sj1 06:18 Patient has correct armband on for positive identification. sj1 06:18 No provider procedures requiring assistance completed. Inserted saline lock: 20 gauge sj1 in left antecubital area, using aseptic technique. Blood collected. 06:32 CT Chest For PE Angio Sent. sj1 06:55 CT Chest For PE Angio In Process Unspecified. EDMS 07:34 Attending Physician role handed off by Dilan Warren MD kdr 07:34 Elmer Brewer MD is Attending Physician. kdr 07:35 Tosin Cortes is Primary Nurse. tw5 07:35 No apparent distress. Resting quietly. Awaiting re-evaluation by ER provider. tw5 07:35 Patient has correct armband on for positive identification. Bed in low position. Call tw5 light in reach. Side rails up X 1. bus monitor on. Pulse ox on. NIBP on. Door closed. Noise minimized. Lights dimmed. Moved to private room. Warm blanket given. Verbal reassurance given. 08:30 Assisted to bathroom. tw5 09:01 IV discontinued, intact, bleeding controlled, No redness/swelling at site. Pressure tw5 dressing applied. Administered Medications: 05:09 Drug: Albuterol HFA Inhaler 2 puffs Route: Inhalation; sj1 05:09 Drug: Phenergan (promethazine) 12.5 mg Route: IVP; Site: left antecubital; sj1 06:32 Follow up: Response: No adverse reaction sj1 05:10 Drug: NS 0.9% 1000 ml Route: IV; Rate: 1000 ml; Site: left antecubital; sj1 07:39 Follow up: IV Status: Completed infusion tw5 06:21 Drug: NS 0.9% 1000 ml Route: IV; Rate: 1000 ml; Site: left antecubital; sj1 07:39 Follow up: Response: No adverse reaction; IV Status: Completed infusion tw5 08:14 Drug: ProTONIX (pantoprazole) 40 mg Route: IVP; Site: left antecubital; tw5 08:31 Follow up: Response: No adverse reaction tw5 Outcome: 08:34 Discharge ordered by . kdr 09:01 Discharged to home ambulatory, with family. tw5 09:01 Condition: stable 09:01 Discharge instructions given to patient, Instructed on discharge instructions, follow up and referral plans. no drinking with medication, no driving heavy equipment, medication usage, Demonstrated understanding of instructions, follow-up care, medications, Prescriptions given X 2. 09:02 Patient left the ED. tw5 Signatures: Dispatcher [employer] EDMS Elmer Brewer MD MD kdr Ballard, Brenda RN RN Noris Perez Maurice, MD MD 7 Morenita Jones RN RN sj1 Tosin Cortes tw5
[2021-04-16] MEDS ORDERED: PANTOPRAZOLE 40 MG INJ ONE (08:37)
[2021-04-16 09:29] VITALS: BP 131/84; TEMP 99.3; O2SAT 95
[2021-04-16 10:34] LABS: Urine Specific Gravity/Preg >1.030 (1.005-1.030)
--- NOTE | 2021-04-17 09:00 | EKG ---
Test Date: 2021-04-16 Test Time: 03:53:39 Bone Glue Maker: MEASUREMENT RESULTS: Intervals: Rate: 117 HI: 136 QRSD: 80 QT: 310 QTc: 432 Sullivan: P: 29 HI: 136 QRS: 14 T: -14 INTERPRETIVE STATEMENTS: Sinus tachycardia Possible Anterior infarct, age undetermined Abnormal ECG Compared to ECG 09/06/2020 18:41:59 Myocardial infarct finding now present Sinus rhythm no longer present ST (T wave) deviation no longer present Electronically Signed On 04-17-21 08:57:29 CDT by Benjamín Wong
== END 2021-04-16 09:02 | disposition home or self-care (01) ==
LOC: ER 04:03
DX: U07.1 COVID-19 (principal); J12.9 Viral pneumonia, unspecified; I10 Essential (primary) hypertension; E11.9 Type 2 diabetes mellitus without complications; F41.8 Other specified anxiety disorders
CPT/HCPCS: 93005; 85025; 80048; 36415; 83735; 81025; 85610; 80076; 81003; 84484; 83690; 83880; 71275; 71045; 96375; 96374; 99285; Q9967; J2550; C9113; J7030 ×2

== ENCOUNTER 2021-09-16 04:35 | Emergency (ER) | payer OTHER ==
--- OUTSIDE RECORDS SUMMARY | 2021-09-16 04:38 | XMS REPORT | Continuity of Care Document ---
:1980 Author Organization [facility] t Address [address] [place] [address] Care Team Providers Name Role Phone Xiomraa Hernandez Primary Care Physician Mary Attending Clinician Unavailable FISH Attending Clinician Unavailable Taco FERMIN Attending Clinician Doctor Unassigned, Name Attending Clinician Unavailable Tobias FERMIN, T Attending Clinician Akinsipe WHMARÍAP, C Attending Clinician Megan FERMIN, L Attending Clinician Payers Payer Name Policy Type Policy Number Effective Date Expiration Date Josephine priest [facility] [id number] 2020 00:00:00 Problems Condition Condition Condition Status Onset Resolution Last Treating Co mments Source Name Details Category Date Date Treatment Clinician Date Dysautonom Dysautonom Disease Active U nivers ia ia - it[place] Medical hypotensio hypotensio Br anch n syndrome n syndrome Generalize Generalize Disease Active U nivers d anxiety d anxiety 07-28 ity of disorder disorder 00:00: [place] 00 Medical Branch Other Other Disease Active 2020 Univers general general 2 ity of counseling counseling [place] and advice and advice 00 In dical for for Branch contracept contracept verenice verenice management management Hypertensi Hypertensi Disease Active 2019-07 Overview : Univers on, on, 2 Formattin ity of essential, essential, 00:00: g of this [place] benign benign 00 note Medical might be Branch different from the original. Dr. Lopez with [facility] Pre-diabet Pre-diabet Disease Active 2019-07 Overview : Univers es es 2 Formattin ity of 00:00: g of this [place] 00 note Medical might be Branch different from the original. Reports on metformin Other Other Disease Active 2019-07 Overview: Univer s depression depression 08-02 Formattin ity of 00:00: g of this [place] 00 note Medical might be Branch different from the original. Reports being seen at [facility] Disease Active 2019-07 Overview: Univer s cholestero cholestero 08-02 Formattin ity of l l 00:00: g of this [place] 00 note Medical might be Branch different from the original. Reports seen by Gini MAYEN in [place] Presence Presence Disease Active 2019-07 Unive rs of of 202 ity of intrauteri intrauteri [place] 00 Medical contracept contracept Br anch verenice device verenice device Obesity, Obesity, Disease Active 2019-07 Unive rs morbid, morbid, 2-02 ity of BMI BMI 00:00: [place] 40.0-49.9 40.0-49.9 00 [facility] Branch Irregular Irregular Disease Active 2019-07 Uni vers menstrual menstrual 08-02 ity of cycle cycle 00:00: [place] 00 Medical Branch Allergies, Adverse Reactions, Alerts Allergy Allergy Status Severity Reaction(s) Onset Inactive Treating Comm ents Source Name Type Date Date Clinician NO KNOWN Drug Active Univers ALLERGIE Class ity of S [facility] Social History Social Habit Start Date Stop Date Quantity Comments Source Exposure to Not sure [facility] SARS-CoV-2 [place] Medical (event) Branch Alcohol intake 2021-09-13 2021-09-13 .14 /d University of 00:00:00 00:00:00 [facility] Branch Alcohol Comment 2021-07-28 2021-07-28 3x a month 4-5 Unive rsity of 00:00:00 00:00:00 glasses [facility] Tobacco use and 2020-06-01 2020-06-01 Never used Universit y of exposure 00:00:00 00:00:00 [place] Medical Edgar History SDCA 2020-06-01 2020-06-01 2 University o f Alcohol Frequency 00:00:00 00:00:00 [place] M edical Branch History [facility] 2020-06-01 2020-06-01 99 University o f Alcohol Std 00:00:00 00:00:00 [place] Medical Drinks Branch History [facility] 2020-06-01 2020-06-01 99 University o f Alcohol Binge 00:00:00 00:00:00 [place] Medic al Branch Sex [birth year] At [birth year] Universit y of 00:00:00 00:00:00 [facility] Smoking Status Start Date Stop Date Source Former smoker 2020-06-01 00:00:00 2020-06-01 00:00:00 Universi ty [facility] Medications Ordered Filled Start Stop Current Ordering Indication Dosage Frequency Signature Comments Components Source Medication Medication Date Date Medication? Clinician (SIG) Name Name Cranberry Yes Take by Univ ers 400 mg Cap 1-28 mouth. ity of 13:32: [address] OMEPRAZOLE Yes 20mg/d Take 20 Un evangelista ORAL 1-28 mg/day by ity of 13:32: mouth. [address] Cranberry Yes Take by Univ ers 400 mg Cap 1-28 mouth. ity of 13:32: [address] OMEPRAZOLE Yes 20mg/d Take 20 Un evangelista ORAL 1-28 mg/day by ity of 13:32: mouth. [address] Cranberry Yes Take by Univ ers 400 mg Cap 1-28 mouth. ity of 13:32: [address] OMEPRAZOLE Yes 20mg/d Take 20 Un evangelista ORAL 1-28 mg/day by ity of 13:32: mouth. [address] Cranberry Yes Take by Univ ers 400 mg Cap 1-28 mouth. ity of 13:32: [address] OMEPRAZOLE Yes 20mg/d Take 20 Un evangelista ORAL 1-28 mg/day by ity of 13:32: mouth. [place] 40 Medical Branch hydrOXYzine 2022-0 Yes 50mg Take 50 mg Univers 50 mg 1-28 by mouth 3 ity of tablet 13:19: (three) [place] 15 times Medical daily as Branch needed for Itching. gabapentin 2022-0 Yes 300mg Take 300 Un evangelista 300 mg 1-28 mg by ity of capsule 13:19: mouth 3 [place] 15 (three) Medical times Branch daily. lamotrigine 2022-0 Yes Take by Un evangelista (LAMICTAL 1-28 mouth. ity of ORAL) 13:19: [place] 15 Medical Branch hydrOXYzine 2022-0 Yes 50mg Take 50 mg Univers 50 mg 1-28 by mouth 3 ity of tablet 13:19: (three) [place] 15 times Medical daily as Branch needed for Itching. gabapentin 2022-0 Yes 300mg Take 300 Un evangelista 300 mg 1-28 mg by ity of capsule 13:19: mouth 3 [place] 15 (three) Medical times Branch daily. lamotrigine 2022-0 Yes Take by Un evangelista (LAMICTAL 1-28 mouth. ity of ORAL) 13:19: [place] 15 Medical Branch hydrOXYzine 2-0 Yes 50mg Take 50 mg Univers 50 mg 1-28 by mouth 3 ity of tablet 13:19: (three) [place] 15 times Medical daily as Branch needed for Itching. gabapentin 2022-0 Yes 300mg Take 300 Un evangelista 300 mg 1-28 mg by ity of capsule 13:19: mouth 3 [place] 15 (three) Medical times Branch daily. lamotrigine 2022-0 Yes Take by Un evangelista (LAMICTAL 1-28 mouth. ity of ORAL) 13:19: [place] 15 Medical Branch hydrOXYzine 2022-0 Yes 50mg Take 50 mg Univers 50 mg 1-28 by mouth 3 ity of tablet 13:19: (three) [place] 15 times Medical daily as Branch needed for Itching. gabapentin 2022-0 Yes 300mg Take 300 Un evangelista 300 mg 1-28 mg by ity of capsule 13:19: mouth 3 [place] 15 (three) Medical times Branch daily. lamotrigine 2022-0 Yes Take by Un evangelista (LAMICTAL 1-28 mouth. ity of ORAL) 13:19: [place] 15 Medical Branch metoprolol Yes 100mg Take 100 Un evangelista succinate 1-28 mg by ity of XL 50 mg 24 13:17: mouth [place] hr tablet 51 daily. Medical Branch metoprolol Yes 100mg Take 100 Un evangelista succinate 1-28 mg by ity of XL 50 mg 24 13:17: mouth [place] hr tablet 51 daily. Medical Branch metoprolol Yes 100mg Take 100 Un evangelista succinate 1-28 mg by ity of XL 50 mg 24 13:17: mouth [place] hr tablet 51 daily. Medical Branch metoprolol Yes 100mg Take 100 Un evangelista succinate 1-28 mg by ity of XL 50 mg 24 13:17: mouth [place] hr tablet 51 daily. Medical Branch traZODone Yes Univers 50 mg 1-27 ity of tablet 00:00: [place] 00 Medical Branch traZODone Yes Univers 50 mg 1-27 ity of tablet 00:00: [place] 00 Medical Branch traZODone Yes Univers 50 mg 1-27 ity of tablet 00:00: [place] 00 Medical Branch traZODone Yes Univers 50 mg 1-27 ity of tablet 00:00: [place] 00 Medical Branch vortioxetin 2019-07 Yes Take by Un evangelista e 2-02 mouth. ity of (TRINTELLIX 09:19: [place] ) 20 mg Tab 18 Medical Branch lisinopriL 2019-07 Yes 20mg Take 20 mg U nivers 20 mg 2-02 by mouth ity of tablet 09:19: daily. [place] 18 Medical Branch rosuvastati 2019- Yes 20mg Take 20 mg Univers n (CRESTOR) 2-02 by mouth ity of 20 mg 09:19: at [place] tablet 18 bedtime. Medical Branch metFORMIN 2019- Yes 500mg Take 500 Uni vers 500 mg/5 mL 2-02 mg by ity of solution 09:19: mouth 2 [place] 18 (two) Medical times Branch daily with meals. vortioxetin 2019-07 Yes Take by Un evangelista e 2-02 mouth. ity of (TRINTELLIX 09:19: [place] ) 20 mg Tab 18 Medical Branch lisinopriL 2019-07 Yes 20mg Take 20 mg U nivers 20 mg 2-02 by mouth ity of tablet 09:19: daily. [place] [address] Medical Branch rosuvastati 2020- Yes 20mg Take 20 mg Univers n (CRESTOR) 2-02 by mouth ity of 20 mg 09:19: at [place] tablet 18 bedtime. Medical Branch metFORMIN 2020-1 Yes 500mg Take 500 Uni vers 500 mg/5 mL 2-02 mg by ity of solution 09:19: mouth 2 [place] [address] (two) Medical times Edgar daily with meals. vortioxetin 2019- Yes Take by Un evangelista e 2-02 mouth. ity of (TRINTELLIX 09:19: [place] ) 20 mg Tab 18 Medical Branch lisinopriL 2020- Yes 20mg Take 20 mg U nivers 20 mg 2-02 by mouth ity of tablet 09:19: daily. [place] [address] Medical Branch rosuvastati 2019- Yes 20mg Take 20 mg Univers n (CRESTOR) 2-02 by mouth ity of 20 mg 09:19: at [place] tablet 18 bedtime. Medical Branch metFORMIN 2020- Yes 500mg Take 500 Uni vers 500 mg/5 mL 2-02 mg by ity of solution 09:19: mouth 2 [place] [address] (two) Medical times Edgar daily with meals. vortioxetin 2019- Yes Take by Un evangelista e 2-02 mouth. ity of (TRINTELLIX 09:19: [place] ) 20 mg Tab 18 Medical Branch lisinopriL 2019- Yes 20mg Take 20 mg U nivers 20 mg 2-02 by mouth ity of tablet 09:19: daily. [place] [address] Medical Branch rosuvastati 2019- Yes 20mg Take 20 mg Univers n (CRESTOR) 2-02 by mouth ity of 20 mg 09:19: at [place] tablet 18 bedtime. Medical Branch metFORMIN 2019- Yes 500mg Take 500 Uni vers 500 mg/5 mL 2-02 mg by ity of solution 09:19: mouth 2 [place] [address] (two) Medical times Edgar daily with meals. Immunizations Ordered Filled Immunization Date Status Comments [facility] e Immunization Name Name Influenza Virus 2020-06-01 Completed Universit y of Vaccine Quad .5 mL 00:00:00 [place] Medical IM 6+ MO Branch Influenza Virus 2020-06-01 Completed Universit y of Vaccine Quad .5 mL 00:00:00 [place] Medical IM 6+ MO Branch Influenza Virus 2020-06-01 Completed Universit y of Vaccine Quad .5 mL 00:00:00 [facility] IM 6+ MO Branch Influenza Virus 2020-06-01 Completed Universit y of Vaccine Quad .5 mL 00:00:00 [facility] IM 6+ MO Branch TDAP 2012-07-01 Completed University 00:00:00 [facility] TDAP 2012-07-01 Completed University of 00:00:00 [facility] TDAP 2012-07-01 Completed University 00:00:00 [facility] TDAP 2012-07-01 Completed University 00:00:00 [facility] Vital Signs Vital Name Observation Time Observation Value Comments Source Systolic blood 2021-09-06 17:45:00 136 mm[Hg] Univer sity [facility] pressure [facility] Diastolic blood 2021-09-06 17:45:00 84 [facility]Hg[facility] 2021-09-06 17:45:00 69 /min [facility] Body height 2021-09-06 17:45:00 167.6 cm [facility] Body weight 2021-09-06 17:45:00 126.554 kg [facility] BMI 2021-09-06 17:45:00 45.03 kg/m2 [facility] Oxygen saturation 2021-09-06 17:45:00 97 /min [facility] in Arterial blood Medical Br anch by Pulse oximetry Procedures Procedure Date / Time Performed Performing Clinician Sour e ASSIGNMENT OF BENEFITS 2021-09-13 15:37:04 Doctor Unassigned, No [facility] Encounters Start End Encounter Admission Attending Care Care Encounter Source Date/Time Date/Time Type Type Clinicians Facility Department ID 2021-08-16 Outpatient Mary, STLMLC STLMLC [id number] [facility] 10:23:03 Margaret [id number] [facility] 2022-07-31 2022-07-31 Outpatient FEDE GALLEGO [facility] [id number] Univers 14:00:00 14:00:00 [id number] ity [facility] 2021-09-13 2021-09-13 Outpatient FEDE GALLEGO [facility] [id number] Univers 10:37:50 [facility]59[facility] 2021-09-13 2021-09-13 Hospital Fede España [facility] [id number] Univers 10:37:50 23:59:00 Encounter ANGLEVICTORIAN[place] [id number] ity of [place] [id number] [facility] 800 Branch 2021-09-13 2021-09-13 Orders Doctor SHILPA [id number] Univers 00:00:00 00:00:00 Only Unassigned, MARY [id number] ity of [place] [facility] [id number] Anil [id number] [facility] 009 Branch 2021-09-07 2021-09-07 ambulatory STLMLC STLMLC [id number] [facility] 2021-09-06 2021-09-06 [facility] [id number] [facility] 11:40:00 12:00:00 Visit Zaynab RENEE [id number] ity of [place] [id number] [id number] 2021-08-16 2021-08-16 ambulatory STLMLC STLMLC [id number] [facility] 2020-08-09 2020-08-09 [facility] [id number] 06:35:36 23:59:00 Encounter Nasra C VITALIY [id number] CARE [id number] CENTER AT [id number] [place] [address] [facility] 2020-07-14 2020-07-14 [facility] [id number] 13:05:29 14:20:37 Visit Eliza Renee [id number] [place] [id number] Professio [id number] [address] 2020-07-142020-07-14 Orders Doctor SHILPA [id number] 00:00:00 00:00:00 Only Unassigned, MARY [id number] [place] [facility] [id number] Results This patient has no known results.
[2021-09-16] MEDS ORDERED: NA CHLORIDE 0.9% 1,000 ML ONE (05:20)
[2021-09-16 05:23] LABS: Absolute Lymphocytes (CBC) 4.3 K/uL (0.7-4.9); Hematocrit 42.6 % (36.0-45.0); Lymphocytes % 49.2 % (15.3-44.8); MPV 7.2 fL (7.6-11.3); RBC Red Blood Cell Count 4.65 M/uL (3.86-4.86)
[2021-09-16 05:25] LABS: Protime INR 0.96
[2021-09-16] MEDS ORDERED: ACETAMINOPHEN 500 MG TAB ONE (05:33)
[2021-09-16 05:50] LABS: ALT/SGPT 40 U/L (12-78); AST/SGOT 27 U/L (15-37); Albumin 3.7 g/dL (3.4-5.0); Alkaline Phosphatase 39 U/L (45-117); BUN Blood Urea Nitrogen 11 mg/dL (7-18); Bicarbonate 24 mmol/L (21-32); Bilirubin Direct < 0.1 mg/dL (0-0.2); Bilirubin Total 0.2 mg/dL (0.2-1.0); Glucose Level 123 mg/dL (74-106); Potassium 4.2 mmol/L (3.5-5.1); Protein, Total 7.4 g/dL (6.4-8.2); Sodium Level 140 mmol/L (136-145)
--- NOTE | 2021-09-16 09:57 | RAD REPORT ---
EXAM DESCRIPTION: CT - Head C Spine Mpr Wo Con - 09/16/2021 5:47 am CLINICAL HISTORY: Head and neck injury status post fall. Head and neck pain COMPARISON: 2020 TECHNIQUE: Computed axial tomography of the head and cervical spine was obtained. Sagittal and coronal reconstruction was performed. All CT scans are performed using dose optimization technique as appropriate and may include automated exposure control or mA/KV adjustment according to patient size. FINDINGS: Right scalp swelling. An intracranial bleed is not seen. The ventricles are normal in caliber. An extra-axial fluid collect ion is not noted.Fluid within the visualized sinuses and mastoids is not seen A cervical fracture is not visualized. No dislocation is noted. IMPRESSION: No acute intracranial abnormality is seen. A cervical fracture is not visualized. If the patient continues to have symptoms to suggest intracra nial /spinal cord pathology then MRI would be recommended
--- NOTE | 2021-09-16 10:00 | EDPHYS ---
Physician Documentation [facility] Name: Shelley Frank Age: 41 yrs Sex: Female : 1980 Arrival Date: 09/16/2021 Time: 04:41 Bed 15 Private MD: ED Physician Korey Clark HPI: 09/16 06:38 This 41 yrs old Female presents to ER via EMS with unknown complaint. kdr 06:38 Head injury and possible intoxication. Onset: The symptoms/episode began/occurred just kdr prior to arrival. Severity of symptoms: At their worst the symptoms were mild in the emergency department the symptoms are unchanged. It is unknown whether or not the patient has had similar symptoms in the past. It is unknown whether or not the patient has recently seen a physician. The patient reports that she has had some wine possibly abdominal. She indicated that she is under a lot of stress. She apparently fell at home striking the back of her head. Is unclear whether there was a loss of consciousness. Patient states that she lost control of her bladder and urinated on herself. She also complains repeatedly of a contusion to the right occipital area. Patient is otherwise appropriate and answers questions appropriately. She is accompanied by her daughter. Patient was brought to the ED by EMS. YARD JOCKEY: 04:52 Patient not sure of LMP. States, she has an IUD. tk1 Historical: - Home Meds: 04:51 Crestor [Active]; Lamictal Oral [Active]; lisinopril Oral [Active]; Metformin Oral tk1 [Active]; Metoprolol Tartrate Oral [Active]; Minocycline Oral [Active]; Omeprazole Oral [Active]; Trazodone Oral [Active]; Trintellix Oral [Active]; - PMHx: 04:51 Anxiety; Depression; Diabetes - NIDDM; Dysautonomia; Hypertension; BECERRA; tk1 - Immunization history:: Adult Immunizations not up to date. - Social history:: Smoking status: Patient/guardian denies using tobacco, but has a distant history of tobacco abuse, Patient uses alcohol, street drugs, marijuana. ROS: 06:38 Constitutional: Negative for fever, chills, and weight loss, Eyes: Negative for injury, kdr pain, redness, and discharge, ENT: Negative for injury, pain, and discharge, Neck: Negative for injury, pain, and swelling, Cardiovascular: Negative for chest pain, palpitations, and edema, Respiratory: Negative for shortness of breath, cough, wheezing, and pleuritic chest pain, Abdomen/GI: Negative for abdominal pain, nausea, vomiting, diarrhea, and constipation, Back: Negative for injury and pain, : Negative for injury, bleeding, discharge, and swelling, MS/Extremity: Negative for injury and deformity, Skin: Negative for injury, rash, and discoloration, Psych: Negative for depression, anxiety, suicide ideation, homicidal ideation, and hallucinations, Allergy/Immunology: Negative for hives, rash, and allergies, Endocrine: Negative for neck swelling, polydipsia, polyuria, polyphagia, and marked weight changes, Hematologic/Lymphatic: Negative for swollen nodes, abnormal bleeding, and unusual bruising. 06:38 Neuro: Positive for weakness, Contusion to right occiput, the patient repeatedly comments on the contusion on the back of her head. Exam: 06:38 Constitutional: This is a well developed, well nourished patient who is awake, alert, kdr and in no acute distress. Eyes: Pupils equal round and reactive to light, extra-ocular motions intact. Lids and lashes normal. Conjunctiva and sclera are non-icteric and not injected. Cornea within normal limits. Periorbital areas with no swelling, redness, or edema. Neck: Trachea midline, no thyromegaly or masses palpated, and no cervical lymphadenopathy. Supple, full range of motion without nuchal rigidity, or vertebral point tenderness. No Meningismus. Chest/axilla: Normal chest wall appearance and motion. Nontender with no deformity. No lesions are appreciated. Cardiovascular: Regular rate and rhythm with a normal S1 and S2. No gallops, murmurs, or rubs. Normal PMI, no JVD. No pulse deficits. Respiratory: Lungs have equal breath sounds bilaterally, clear to auscultation and percussion. No rales, rhonchi or wheezes noted. No increased work of breathing, no retractions or nasal flaring. Abdomen/GI: Soft, non-tender, with normal bowel sounds. No distension or tympany. No guarding or rebound. No evidence of tenderness throughout. Back: No spinal tenderness. No costovertebral tenderness. Full range of motion. 06:38 Skin: Warm, dry with normal turgor. Normal color with no rashes, no lesions, and no evidence of cellulitis. MS/ Extremity: Pulses equal, no cyanosis. Neurovascular intact. Full, normal range of motion. 06:38 Head/face: Noted is contusion, that is superficial, of the right side of the back of head and right occipital area. 06:38 Neuro: Orientation: to person, place, Not oriented to time, situation. 06:38 Psych: Affect is calm, flat, Oriented to person, place, Patient has no thoughts/intents to harm self or others. Judgement / Insight is impaired. Delusions/hallucinations are not present. Vital Signs: 04:47 BP 96 / 63 LA Supine (auto/reg); Pulse 66 MON; Resp 18 S; Temp 97.4; Pulse Ox 98% on tk1 R/A; Pain 5/10; 04:52 BP 96 / 63 LA Supine (auto/reg); Pulse 66 MON; Resp 18 S; Pulse Ox 98% on R/A; Pain tk1 5/10; 05:55 BP 112 / 72; Pulse 82; Resp 20 S; Pulse Ox 96% on R/A; bb 08:10 BP 117 / 61; Pulse 66; Resp 18; Pulse Ox 98% on R/A; ic1 MDM: 06:38 Data reviewed: vital signs, nurses notes, lab test result(s), radiologic studies. kdr Counseling: I had a detailed discussion with the patient and/or guardian regarding: the historical points, exam findings, and any diagnostic results supporting the discharge/admit diagnosis, lab results, radiology results, the need for outpatient follow up. 08:59 Response to treatment: the patient's symptoms have markedly improved after treatment. ma2 09:59 Patient medically screened. [facility] 09/16 05:07 Order name: Acetaminophen; Complete Time: 06:36 kdr 09/16 05:07 Order name: Basic Metabolic Panel; Complete Time: 06:36 kdr 09/16 05:07 Order name: CBC with Diff; Complete Time: 06:36 kdr 09/16 05:07 Order name: ETOH Level; Complete Time: 06:36 kdr 09/16 05:07 Order name: Hepatic Function; Complete Time: 06:36 kdr 09/16 05:07 Order name: PT-INR; Complete Time: 06:36 kdr 09/16 05:07 Order name: Salicylate; Complete Time: 06:36 kdr 09/16 05:07 Order name: IV Saline Lock; Complete Time: 05:14 kdr 09/16 05:07 Order name: Labs collected and sent; Complete Time: 05:14 kdr 09/16 05:07 Order name: Suicide Screening ([place]) kdr 09/16 05:08 Order name: CT Head C Spine; Complete Time: 09:59 kdr 09/16 05:07 Order name: Urine Dipstick-Ancillary (obtain specimen) kdr Administered Medications: 05:27 Drug: NS 0.9% 1000 ml Route: IV; Rate: 1 bolus; Site: right forearm; bb 05:54 Drug: Tylenol 1000 mg Route: PO; bb Disposition Summary: 09/16/21 09:59 Discharge Ordered Location: Home ma2 Condition: Stable ma2 Diagnosis - Acute post-traumatic headache ma2 Followup: ma2 - With: Private Physician - When: Tomorrow - Reason: If symptoms return, Continuance of care Discharge Instructions: - Discharge Summary Sheet ma2 - Head Injury, Adult, [id number] ma2 Forms: - Medication Reconciliation Form ma2 - Thank You Letter ma2 - Antibiotic Education ma2 - Prescription Opioid Use ma2 Signatures: Dispatcher [employer] EDMS Elmer Brewer MD MD kdr Chelsy Tejeda RN RN bb Korey Clark MD MD ma2 Joann Reyes tk1 Corrections: (The following items were deleted from the chart) 10:00 05:08 URINE DRUG SCREEN+CHEM UR.LAB.BRZ ordered. EDMS EDMS
--- NOTE | 2021-09-16 10:00 | ER ---
Nurse's Notes [facility] Name: Shelley Frank Age: 41 yrs Sex: Female : 1980 Arrival Date: 09/16/2021 Time: 04:41 Bed 15 Private MD: Diagnosis: Acute post-traumatic headache Presentation: 09/16 04:47 Chief complaint: EMS states: EMS states, patient fell and hit her head. Family states, tk1 patient had LOC. Hematoma noted back of head. Coronavirus screen: Vaccine status: Patient reports being unvaccinated. Patient states, "Fuck No" when asked. Client denies travel out of the [place] in the last 14 days. At this time, the client does not indicate any symptoms associated with coronavirus-19. Ebola Screen: Patient negative for fever greater than or equal to 101.5 degrees Fahrenheit, and additional compatible Ebola Virus Disease symptoms Patient denies exposure to infectious person. Patient denies travel to an Ebola-affected area in the 21 days before illness onset. Initial Sepsis Screen: Does the patient meet any 2 criteria? No. Patient's initial sepsis screen is negative. Does the patient have a suspected source of infection? No. Patient's initial sepsis screen is negative. Risk Assessment: Do you want to hurt yourself or someone else? Patient reports no desire to harm self or others. Onset of symptoms is unknown. 04:47 Method Of Arrival: EMS tk1 04:47 Acuity: LEONEL 3 tk1 Triage Assessment: 04:52 General: Appears in no apparent distress. comfortable, obese, well developed, well tk1 nourished, Behavior is cooperative, agitated, Smells of alcohol. Pain: Complains of pain in head Pain does not radiate. Pain currently is 5 out of 10 on a pain scale. Quality of pain is described as aching. EENT: No deficits noted. No signs and/or symptoms were reported regarding the EENT system. Neuro: Level of Consciousness is awake, alert, obeys commands, Oriented to person, place, time, situation, [employer] Dist[employer] Operator are equal bilaterally Moves all extremities. Speech is normal, Facial symmetry appears normal. Cardiovascular: Capillary refill < 3 seconds is brisk in bilateral fingers. Respiratory: Airway is patent Respiratory effort is even, unlabored, Respiratory pattern is regular, symmetrical. GI: No deficits noted. No signs and/or symptoms were reported involving the gastrointestinal system. : No deficits noted. No signs and/or symptoms were reported regarding the genitourinary system. Derm: Skin is healthy with good turgor, Hematoma to back of head. Skin is dry, Skin is pink, warm \\T\\ dry. Musculoskeletal: No deficits noted. No signs and/or symptoms reported regarding the musculoskeletal system. Injury Description: Head injury sustained to scalp is closed, had loss of consciousness. 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 States, she has an IUD. tk1 Historical: - Home Meds: 04:51 Crestor [Active]; Lamictal Oral [Active]; lisinopril Oral [Active]; Metformin Oral tk1 [Active]; Metoprolol Tartrate Oral [Active]; Minocycline Oral [Active]; Omeprazole Oral [Active]; Trazodone Oral [Active]; Trintellix Oral [Active]; - PMHx: 04:51 Anxiety; Depression; Diabetes - NIDDM; Dysautonomia; Hypertension; BECERRA; tk1 - Immunization history:: Adult Immunizations not up to date. - Social history:: Smoking status: Patient/guardian denies using tobacco, but has a distant history of tobacco abuse, Patient uses alcohol, street drugs, marijuana. Screenin:00 Abuse screen: Denies threats or abuse. Denies injuries from another. Nutritional tk1 screening: No deficits noted. Tuberculosis screening: No symptoms or risk factors identified. Fall Risk None identified. Assessment: 05:00 Reassessment: See Triage assessment. tk1 05:55 Reassessment: Patient is alert, oriented x 3, equal unlabored respirations, skin bb warm/dry/pink. pt returned from CT IV site intact no erythema or edema noted, fluids infusing. 06:42 Reassessment: pt sleeping, eyes closed, resp unlabored, daughter at bedside awaiting bb diagnostic results. 08:55 Reassessment: Pt left AMA. Stated she would like her IV to be removed because her ic1 is waiting on her outside. Pt informed that we are waiting on CT head scan results and would dispo according to results. Pt verbalized understanding, refused to wait and sign AMA form. Pt up ad kasey and putting on clothes while daughter is at bedside. Pt AAOx4. GCS 15. Amb w steady gait. Denies headache, dizziness, or blurred vision. notified of pt's request to leave. Vital Signs: 04:47 BP 96 / 63 LA Supine (auto/reg); Pulse 66 MON; Resp 18 S; Temp 97.4; Pulse Ox 98% on tk1 R/A; Pain 5/10; 04:52 BP 96 / 63 LA Supine (auto/reg); Pulse 66 MON; Resp 18 S; Pulse Ox 98% on R/A; Pain tk1 5/10; 05:55 BP 112 / 72; Pulse 82; Resp 20 S; Pulse Ox 96% on R/A; bb 08:10 BP 117 / 61; Pulse 66; Resp 18; Pulse Ox 98% on R/A; ic1 ED Course: 04:41 Patient arrived in ED. mw2 04:46 Joann Reyes is Primary Nurse. tk1 04:51 Triage completed. tk1 04:52 Arm band placed on left wrist. tk1 05:00 Awaiting ED provider evaluation. tk1 05:00 Patient has correct armband on for positive identification. Bed in low position. Call tk1 light in reach. Side rails up X2. Pulse ox on. NIBP on. 05:00 No provider procedures requiring assistance completed. Maintain EMS IV. Dressing tk1 intact. Site clean \\T\\ dry. Gauge \\T\\ site: 20g to right forearm. 05:06 Elmer Brewer MD is Attending Physician. kdr 05:13 Acetaminophen Sent. cs9 05:13 Basic Metabolic Panel Sent. cs9 05:13 CBC with Diff Sent. cs9 05:13 ETOH Level Sent. cs9 05:13 Hepatic Function Sent. cs9 05:14 PT-INR Sent. cs9 05:14 Salicylate Sent. cs9 05:47 CT Head C Spine In Process Unspecified. EDMS 05:55 Door closed. Lights dimmed. Warm blanket given. Pillow given. Cleaned of incontinence. bb Linen changed. 07:14 Attending Physician role handed off by Elmer Brewer MD ma2 07:14 Korey Clark MD is Attending Physician. ma2 07:33 Korey Clark MD is Attending Physician. ma2 Administered Medications: 05:27 Drug: NS 0.9% 1000 ml Route: IV; Rate: 1 bolus; Site: right forearm; bb 05:54 Drug: Tylenol 1000 mg Route: PO; bb Outcome: 09:59 Discharge ordered by . marika 10:10 Patient left the ED. ic1 Signatures: Dispatcher [employer] Elmer Haddad MD MD kdr Ballard, Brenda, RN RN Korey Godfrey MD MD ma2 [place], [facility] Cristy Velez [facility] Yashira Claire RN RN ic1 Joann Reyes [facility]
[2021-09-16 10:16] VITALS: TEMP 97.4
[2021-09-16 10:20] VITALS: BP 117/61; O2SAT 98
== END 2021-09-16 10:10 | disposition home or self-care (01) ==
LOC: ER 04:35
DX: G44.319 Acute post-traumatic headache, not intractable (principal); R53.1 Weakness; W19.XXXA Unspecified fall, initial encounter; Y92.009 Unspecified place in unspecified non-institutional (private) residence as the place of occurrence of the external cause; E11.9 Type 2 diabetes mellitus without complications; I10 Essential (primary) hypertension; F41.8 Other specified anxiety disorders
CPT/HCPCS: 85025; 80048; 36415; 80320; 80329 ×2; 85610; 80076; 70450; 72125; 99284; J7030

== ENCOUNTER 2021-11-25 04:05 | Emergency (ER) | payer OTHER ==
--- OUTSIDE RECORDS SUMMARY | 2021-11-25 04:08 | XMS REPORT | Continuity of Care Document ---
:1980 Author Organization [facility] t Address [address] [place] [address] Care Team Providers Name Role Phone KAUSHIK MICHAEL Primary Care Physician Unavailable Kaushik Attending Clinician Unavailable James HUDSON Attending Clinician Unavailable Escobar BRADEN Attending Clinician Unavailable Radu Foster PT Attending Clinician Unavailable Kathryn FERMIN L Attending Clinician Doctor Unassigned, Name Attending Clinician Unavailable James Yu Attending Clinician Akinsipe Serina THOMPSON Attending Clinician Megan FERMIN L Attending Clinician Payers Payer Name Policy Type Policy Number Effective Date Expiration Date Josephine priest [facility] [id number] 2020 00:00:00 Problems Condition Condition Condition Status Onset Resolution Last Treating Co mments Source Name Details Category Date Date Treatment Clinician Date Dysautonom Dysautonom Disease Active U [place] - [place] Medical hypotensio hypotensio Br anch n syndrome n syndrome Generalize Generalize Disease Active U nivers d anxiety d anxiety 1-28 ity of disorder disorder 00:00: [place] 00 Medical Branch Other Other Disease Active 2020 Univers general general 08-02 [place]y of counseling [place] and advice and advice 00 Ok dical for for Branch contracept contracept verenice verenice management management Hypertensi Hypertensi Disease Active 2019-07 Overview : Univers on, on, 08-02 Formattin ity of essential, essential, 00:00: g of this [place] benign benign 00 note Medical might be Branch different from the original. Dr. Lopez with [facility] Pre-diabet Pre-diabet Disease Active 2019-07 Overview : Univers es es 08-02 Formattin ity of 00:00: g of this [place] 00 note Medical might be Branch different from the original. Reports on metformin Other Other Disease Active 2019-07 Overview: Univer s depression depression 08-02 Formattin ity of 00:00: g of this [place] 00 note Medical might be Branch different from the original. Reports being seen at [facility] Disease Active 2019-07 Overview: Univer s cholestero cholestero 08-02 Formattin ity of l l 00:00: g of this [place] 00 note Medical might be Branch different from the original. Reports seen by Gini MAYEN in [facility] Presence Presence Disease Active 2019-07 Unive rs of of 08-02 ity of intrauteri intrauteri [place] 00 Medical contracept contracept Br anch verenice device verenice device Obesity, Obesity, Disease Active 2019-07 Unive rs morbid, morbid, 08-02 ity of BMI BMI 00:00: [place] 40.0-49.9 40.0-49.9 00 [facility] Branch Irregular Irregular Disease Active 2019-07 Uni vers menstrual menstrual 08-02 ity of cycle cycle 00:00: [place] 00 Medical Branch Allergies, Adverse Reactions, Alerts Allergy Allergy Status Severity Reaction(s) Onset Inactive Treating Comm ents Source Name Type Date Date Clinician NO KNOWN Drug Active Univers ALLERGIE Class ity of S [facility] Social History Social Habit Start Date Stop Date Quantity Comments Source Exposure to 2021-09-09 2021-10-[address] [facility]-CoV-2 00:00:00 09:27:00 [facility] (event) Branch Alcohol intake 2021-09-18 2021-09-18 .14 /d University of 00:00:00 00:00:00 [facility] Alcohol Comment 2021-07-28 2021-07-28 3x a month 4-5 Unive rsity of 00:00:00 00:00:00 glasses [facility] Tobacco use and 2020-06-01 2020-06-01 Never used Universit y of exposure 00:00:00 00:00:00 [place] Medical [facility] History SDOH 2020-06-01 2020-06-01 2 University o f Alcohol Frequency 00:00:00 00:00:00 [place] M edical Branch History [facility] 2020-06-01 2020-06-01 99 University o f Alcohol Std 00:00:00 00:00:00 [place] Medical Drinks Branch History [facility] 2020-06-01 2020-06-01 99 University o f Alcohol Binge 00:00:00 00:00:00 [place] Medic al Branch Sex [birth year] At [birth year] Universit y of 00:00:00 00:00:00 [facility] Smoking Status Start Date Stop Date Source Former smoker 2020-06-01 00:00:00 2020-06-01 00:00:00 Universi ty of [facility] Branch Medications Ordered Filled Start Stop Current Ordering Indication Dosage Frequency Signature Comments Components Source Medication Medication Date Date Medication? Clinician (SIG) Name Name methocarbam Yes [id number] 500mg Take 1 Univers oL 500 mg 4-11 tablet by ity o f tablet 00:00: mouth (two) Medical times Branch daily as needed (muscle spasm). methocarbam Yes [id number] 500mg Take 1 Univers oL 500 mg 4-11 tablet by ity o f tablet 00:00: mouth 2 (two) Medical times Branch daily as needed (muscle spasm). methocarbam Yes [id number] 500mg Take 1 Univers oL 500 mg 4-11 tablet by ity o f tablet 00:00: mouth 2 (two) Medical times Branch daily as needed (muscle spasm). methocarbam Yes [id number] 500mg Take 1 Univers oL 500 mg 4-11 tablet by ity o f tablet 00:00: mouth 2 (two) Medical times Branch daily as needed (muscle spasm). methocarbam Yes [id number] 500mg Take 1 Univers oL 500 mg 4-11 tablet by ity o f tablet 00:00: mouth 2 [place] 00 (two) Medical times Branch daily as needed (muscle spasm). [place] 2021-0 Yes Take by Univ ers 400 mg Cap 1-28 mouth. ity of 13:32: [address] Branch OMEPRAZOLE 2021-0 Yes 20mg/d Take 20 Un evangelista ORAL 1-28 mg/day by ity of 13:32: mouth. [address] [place] 2021-0 Yes Take by Univ ers 400 mg Cap 1-28 mouth. ity of 13:32: [address] Branch OMEPRAZOLE 2021-0 Yes 20mg/d Take 20 Un evangelista ORAL 1-28 mg/day by ity of 13:32: mouth. [address] [place] 2021-0 Yes Take by Univ ers 400 mg Cap 1-28 mouth. ity of 13:32: [address] OMEPRAZOLE 2021-0 Yes 20mg/d Take 20 Un evangelista ORAL 1-28 mg/day by ity of 13:32: mouth. [address] [place] 2021-0 Yes Take by Univ ers 400 mg Cap 1-28 mouth. ity of 13:32: [address] OMEPRAZOLE 2021-0 Yes 20mg/d Take 20 Un evangelista ORAL 1-28 mg/day by ity of 13:32: mouth. [address] [place] 2021-0 Yes Take by Univ ers 400 mg Cap 1-28 mouth. ity of 13:32: [address] OMEPRAZOLE 2021-0 Yes 20mg/d Take 20 Un evangelista ORAL 1-28 mg/day by ity of 13:32: mouth. [address] [place] 2021-0 Yes Take by Univ ers 400 mg Cap 1-28 mouth. ity of 13:32: [address] OMEPRAZOLE 2021-0 Yes 20mg/d Take 20 Un evangelista ORAL 1-28 mg/day by ity of 13:32: mouth. [address] Branch hydrOXYzine 2021-0 Yes 50mg Take 50 mg Univers 50 mg 1-28 by mouth 3 ity of tablet 13:19: (three) [place] 15 times Medical daily as Branch needed for Itching. gabapentin 2021-0 Yes 300mg Take 300 Un evangelista 300 [...] 15 (three) Medical times Branch daily. lamotrigine 2021-0 Yes Take by Un evangelista (LAMICTAL 1-28 mouth. ity of ORAL) 13:19: [place] 15 Medical Branch hydrOXYzine 2021-0 Yes 50mg Take 50 mg Univers 50 mg 1-28 by mouth 3 ity of tablet 13:19: (three) [place] 15 times Medical daily as Branch needed for Itching. gabapentin 2021-0 Yes 300mg Take 300 Un evangelista 300 mg 1-28 mg by ity of capsule 13:19: mouth 3 [place] 15 (three) Medical times Branch daily. lamotrigine 2021-0 Yes Take by Un evangelista (LAMICTAL 1-28 mouth. ity of ORAL) 13:19: [place] 15 Medical Branch metoprolol 2021-0 Yes 100mg Take 100 Un evangelista succinate 1-28 mg by ity of XL 50 mg 24 13:17: mouth [place] hr tablet 51 daily. Medical Branch metoprolol 2021-0 Yes 100mg Take 100 Un evangelista succinate 1-28 mg by ity of XL 50 mg 24 13:17: mouth [place] hr tablet 51 daily. Medical Branch metoprolol 0 Yes 100mg Take 100 Un evangelista succinate 1-28 mg by ity of XL 50 mg 24 13:17: mouth [place] hr tablet 51 daily. Medical Branch metoprolol 2021-0 Yes 100mg Take 100 Un evangelista succinate 1-28 mg by ity of XL 50 mg 24 13:17: mouth [place] hr tablet 51 daily. Medical Branch metoprolol 2021-0 Yes 100mg Take 100 Un evangelista succinate 1-28 mg by ity of XL 50 mg 24 13:17: mouth [place] hr tablet 51 daily. Medical Branch metoprolol 2021-0 Yes 100mg Take 100 Un evangelista succinate 1-28 mg by ity of XL 50 mg 24 13:17: mouth [place] hr tablet 51 daily. Medical Branch traZODone 2021-0 Yes Univers 50 mg 1-27 ity of tablet 00:00: [place] 00 Medical Branch traZODone 2021-0 Yes Univers 50 mg 1-27 ity of tablet 00:00: [place] 00 Medical Branch traZODone 2021-0 Yes Univers 50 mg 1-27 ity of tablet 00:00: [place] 00 Medical Branch traZODone 2021-0 Yes Univers 50 mg 1-27 ity of tablet 00:00: [place] 00 Medical Branch traZODone 2021-0 Yes Univers 50 mg 1-27 ity of tablet 00:00: [place] 00 Medical Branch traZODone 2021-0 Yes Univers 50 mg 1-27 ity of tablet 00:00: [place] 00 Medical Branch vortioxetin 2019- Yes Take by Un evangelista e 2-02 mouth. ity of (TRINTELLIX 09:19: [place] ) 20 mg Tab 18 Medical Branch lisinopriL 2019- Yes 20mg Take 20 mg U nivers 20 mg 2-02 by mouth ity of tablet 09:19: daily. [place] [address] Medical Branch rosuvastati 2019- Yes 20mg Take 20 mg Univers n (CRESTOR) 2-02 by mouth ity of 20 mg 09:19: at [place] tablet 18 bedtime. Medical Branch metFORMIN 2019- Yes 500mg Take 500 Uni vers 500 mg/5 mL 2-02 mg by ity of solution 09:19: mouth 2 [place] [address] [address]) Medical times [place] daily with meals. vortioxetin 2019-07 Yes Take by Un evangelista e 2-02 mouth. ity of (TRINTELLIX 09:19: [place] ) 20 mg Tab 18 Medical Branch lisinopriL 2019- Yes 20mg Take 20 mg U nivers 20 mg 2-02 by mouth ity of tablet 09:19: daily. [place] [address] Medical Branch rosuvastati 2019- Yes 20mg Take 20 mg Univers n (CRESTOR) 2-02 by mouth ity of 20 mg 09:19: at [place] tablet 18 bedtime. Medical Branch metFORMIN 2019- Yes 500mg Take 500 Uni vers 500 mg/5 mL 2-02 mg by ity of solution 09:19: mouth 2 [place] [address] [address]) Medical times [place] daily with meals. vortioxetin 2019- Yes Take by Un evangelista e 2-02 mouth. ity of (TRINTELLIX 09:19: [place] ) 20 mg Tab 18 Medical Branch lisinopriL 2019- Yes 20mg Take 20 mg U nivers 20 mg 2-02 by mouth ity of tablet 09:19: daily. [place] [address] Medical Branch rosuvastati 2019- Yes 20mg Take 20 mg Univers n (CRESTOR) 2-02 by mouth ity of 20 mg 09:19: at [place] tablet 18 bedtime. Medical Branch metFORMIN 2019- Yes 500mg Take 500 Uni vers 500 mg/5 mL 2-02 mg by ity of solution 09:19: mouth 2 [place] [address] [address]) Medical times [place] daily with meals. vortioxetin 2019- Yes Take by Un evangelista e 2-02 mouth. ity of (TRINTELLIX 09:19: [place] ) 20 mg Tab 18 Medical Branch lisinopriL 2019- Yes 20mg Take 20 mg U nivers 20 mg 2-02 by mouth ity of tablet 09:19: daily. [place] [address] Medical Branch rosuvastati 2019- Yes 20mg Take 20 mg Univers n (CRESTOR) 2-02 by mouth ity of 20 mg 09:19: at [place] tablet 18 bedtime. Medical Branch metFORMIN 2019- Yes 500mg Take 500 Uni vers 500 mg/5 mL 2-02 mg by ity of solution 09:19: mouth 2 [place] [address] [address]) [facility] times [place] daily with meals. vortioxetin 2019- Yes Take by Un evangelista e 2-02 mouth. ity of (TRINTELLIX 09:19: [place] ) 20 mg Tab 18 Medical Branch lisinopriL 2019- Yes 20mg Take 20 mg U nivers 20 mg 2-02 by mouth ity of tablet 09:19: daily. [place] [address] Medical Branch rosuvastati 2019- Yes 20mg Take 20 mg Univers n (CRESTOR) 2-02 by mouth ity of 20 mg 09:19: at [place] tablet 18 bedtime. Medical Branch metFORMIN 2019- Yes 500mg Take 500 Uni vers 500 mg/5 mL 2-02 mg by ity of solution 09:19: mouth 2 [place] [address] [address]) [facility] times [place] daily with meals. vortioxetin 2019- Yes Take by Un evangelista e 2-02 mouth. ity of (TRINTELLIX 09:19: [place] ) 20 mg Tab 18 Medical Branch lisinopriL 2019- Yes 20mg Take 20 mg U nivers 20 mg 2-02 by mouth ity of tablet 09:19: daily. [place] [address] Medical Branch rosuvastati 2019- Yes 20mg Take 20 mg Univers n (CRESTOR) 2-02 by mouth ity of 20 mg 09:19: at [place] tablet 18 bedtime. Medical Branch metFORMIN 2019-07 Yes 500mg Take 500 Uni vers 500 mg/5 mL 2-02 mg by ity of solution 09:19: mouth 2 [place] 18 (two) Medical times Branch daily with meals. Immunizations Ordered Filled Immunization Date Status Comments [facility] e Immunization Name Name Influenza Virus 2021-09-18 Completed Universit y of Vaccine Quad IM, 00:00:00 [facility] [place] [facility] dical Preserv and ABX Branch Free 6 MO-64 YRS Influenza Virus 2021-09-18 Completed Universit y of Vaccine Quad IM, 00:00:00 [facility] [place] [facility] dical Preserv and ABX Branch Free 6 MO-64 YRS Influenza Virus 2021-09-18 Completed Universit y of Vaccine Quad IM, 00:00:00 [facility] [place] [facility] dical Preserv and ABX Branch Free 6 MO-64 YRS Influenza Virus 2021-09-18 Completed Universit y of Vaccine Quad IM, 00:00:00 [facility] [place] [facility] dical Preserv and ABX Branch Free 6 MO-64 YRS Influenza Virus 2021-09-18 Completed Universit y of Vaccine Quad IM, 00:00:00 [facility] [place] [facility] dical Preserv and ABX Branch Free 6 MO-64 YRS Influenza Virus 2021-09-18 Completed Universit y of Vaccine Quad IM, 00:00:00 [facility] [place] [facility] dical Preserv and ABX Branch Free 6 MO-64 YRS Influenza Virus 2020-06-01 Completed Universit y of Vaccine Quad .5 mL 00:00:00 [place] Medical IM 6+ MO Branch Influenza Virus 2020-06-01 Completed Universit y of Vaccine Quad .5 mL 00:00:00 [place] Medical IM 6+ MO Branch Influenza Virus 2020-06-01 Completed Universit y of Vaccine [place] .5 mL 00:00:00 [place] Medical IM 6+ MO Branch Influenza Virus 2020-06-01 Completed Universit y of Vaccine Quad .5 mL 00:00:00 [place] Medical IM 6+ MO Branch Influenza Virus 2020-06-01 Completed Universit y of Vaccine [place] .5 mL 00:00:00 [place] Medical IM 6+ MO Branch Influenza Virus 2020-06-01 Completed Universit y of Vaccine Quad .5 mL 00:00:00 [place] Medical IM 6+ MO Branch TDAP 2012-07-01 Completed University 00:00:00 [facility] TDAP 2012-07-01 Completed [facility] 00:00:00 [facility] TDAP 2012-07-01 Completed University 00:00:00 [place] Medical [place] TDAP 2012-07-01 Completed University 00:00:00 [facility] TDAP 2012-07-01 Completed University 00:00:00 [facility] TDAP 2012-07-01 Completed [facility] 00:00:00 [facility] Vital Signs Vital Name Observation Time Observation Value Comments Source Systolic blood 2021-10-09 15:52:00 122 mm[Hg] Univer sity [facility] [place] pressure Medical Branch Diastolic blood 2021-10-09 15:52:00 86 mm[facility]Hg] [facility] 2021-10-09 15:52:00 79 /min [facility] Body height 2021-10-09 15:52:00 167.6 cm [facility] Body weight 2021-10-09 15:52:00 126.554 kg [facility] BMI 2021-10-09 15:52:00 45.03 kg/m2 [facility] Oxygen saturation 2021-10-09 15:52:00 98 /min [facility] in Arterial blood Medical Br anch by Pulse oximetry Procedures Procedure Date / Time Performed Performing Clinician [facility] e EXTERNAL PROVIDER 2021-10-21 05:01:00 Doctor Unassigned, No Univ [facility] RECORDS Name Medical Branch DISCLOSURE AND 2021-10-09 05:01:00 Doctor Unassigned, No [facility] CONSENT, MEDICAL AND Name Medical [facility] SURGICAL PROCEDURES SLEEP STUDY DATA 2021-10-06 05:01:00 Doctor Unassigned, No [facility] REPORT Name Medical Branch Encounters Start End Encounter Admission Attending Care Care Encounter Source Date/Time Date/Time Type Type Clinicians Facility Department ID 2021-11-10 Outpatient NIKIA HernandezLINA [facility] [id number] Common 07:45:00 [facility] 2021-08-16 Outpatient DIMPLE Hernandez [facility] [id number] Common 10:23:03 [facility] 2021-11-22 2021-11-22 Outpatient Allyn HUDSON TXBRIAN [facility] [id number] Univers 13:00:00 13:00:00 ZAYDA [id number] ity [facility] 2021-11-13 2021-11-13 ambulatory STLMLC STLMLC [id number] Common 00:00:00 00:00:00 [facility] 2021-11-03 2021-11-03 Outpatient [facility] [id number] Univers 09:30:00 09:30:00 [id number] ity [facility] 2021-10-30 2021-11-01 [facility] [id number] Univers 10:15:00 09:27:29 DIEGO ity [facility] 2021-10-30 2021-11-01 Ancillary Nidia Gifford [facility] 1 .2.840.114 [id number] Univers 10:15:00 09:27:29 Visit Diego Braden [id number] [facility] [id number] [phone] Me dical NAL 179 [facility] 2021-10-30 2021-10-30 Outpatient [facility] [id number] Univers 10:15:00 10:15:00 [id number] ity [facility] 2021-10-25 2021-10-25 Outpatient R [facility] [id number] Univers 09:30:00 09:30:00 [id number] ity [facility] 2021-10-23 2021-10-23 Ancillary Nidia Gifford [facility] 1 .2.840.114 [id number] Univers 10:15:00 11:00:00 Visit Diego Braden [id number] ity of [id number] PROF[place] [id number] Me dical NAL 179 [facility] 2021-10-23 2021-10-23 Outpatient R [facility] [id number] Univers 10:15:00 10:15:00 [id number] ity of [facility] 2021-10-23 2021-10-23 Out[facility] [id number] Univers 10:15:00 10:15:00 DIEGO ity [facility] 2021-10-21 2021-10-21 Orders Doctor SHILPA 1.2.840.114 [id number] Univers 00:00:00 00:00:00 Only Unassigned, MARY [id number] ity of [facility] [id number] Anil as [phone] [place] [address] Branch 2021-10-09 2021-10-09 Office [facility] 1.2.840.114 [id number] Univers 11:00:00 11:34:41 Visit Noris CALZADAPEC [id number] ity of [place] [id number] [place] [facility] [id number] [address] [facility] 2021-10-09 2021-10-09 Orders Doctor SHILPA 1.2.840.114 [id number] Univers 00:00:00 00:00:00 Only Unassigned, MARY [id number] ity of [place] [facility] [id number] Anil as [id number] [address] 2021-10-06 2021-10-06 Orders Doctor SHILPA 1.2.840.114 [id number] Univers 00:00:00 00:00:00 Only Unassigned, MARY [id number] ity of [facility] [id number] Anil as [phone] [address] 2021-09-07 2021-09-07 ambulatory STLMLC STLMLC [id number] Common 00:00:00 00:00:00 [facility] 2021-08-16 2021-08-16 ambulatory STLMLC STLMLC [id number] Common 00:00:00 00:00:00 [facility] 2020-08-09 2020-08-09 [facility] 1.2.840.114 [id number] 06:35:36 23:59:00 Encounter Nasra BURKS [id number] CARE [id number] CENTER AT [id number] [place] [facility] 2020-07-14 2020-07-14 Office Adum, [facility] 1.2.840.114 [id number] 13:05:29 14:20:37 Visit Eliza Renee [id number] [place] 4.2.7.2.686 Princess [id number] [address] 2020-07-14 2020-07-14 Orders Doctor SHILPA 1.2.840.114 [id number] 00:00:00 00:00:00 Only Unassigned, MARY [id number] [place] [facility] [id number] Results This patient has no known results.
[2021-11-25 06:02] LABS: Absolute Lymphocytes (CBC) 2.2 K/uL (0.7-4.9); Hematocrit 37.9 % (36.0-45.0); MPV 7.2 fL (7.6-11.3); RBC Red Blood Cell Count 4.21 M/uL (3.86-4.86)
[2021-11-25] MEDS ORDERED: NA CHLORIDE 0.9% 1,000 ML ONE (06:16)
[2021-11-25 06:19] LABS: Albumin 3.7 g/dL (3.4-5.0); Bilirubin Total 0.2 mg/dL (0.2-1.0); Protein, Total 6.8 g/dL (6.4-8.2)
[2021-11-25 07:54] LABS: Urine Blood Negative (Negative); Urine Glucose Negative (Negative); Urine Protein Negative (Negative); Urine Specific Gravity <=1.005 (1.005-1.030)
--- NOTE | 2021-11-25 07:56 | EDPHYS ---
Physician Documentation [facility] Name: Shelley Frank Age: 41 yrs Sex: Female : 1980 Arrival Date: 11/25/2021 Time: 04:10 Bed 15 Private MD: MADY Physician Dilan Warren HPI: 11/25 05:20 This 41 yrs old Female presents to ER via EMS with complaints of Seizure. mh7 05:20 The patient presents after having a single isolated seizure, that lasted 30 second(s). mh7 Character of seizure(s): Loss of consciousness: the patient experienced loss of consciousness, brief, Motor activity: generalized, shaking all over, Incontinence: none, Apnea: the patient did not experience apnea, Circulation: the patient did not experience evidence of pulse disturbance, Eye movements: are unknown. Seizure onset: today. Context: the seizure(s) was witnessed, by family, , occurred at home, occurred while the patient was sitting, Contributing factors:. Seizure Hx: Original onset: longstanding. Associated injury: The patient did not suffer any apparent associated injury. Historical: - Allergies: 04:26 No Known Allergies; ke1 - PMHx: 04:26 Anxiety; Depression; Diabetes - NIDDM; Dysautonomia; Hypertension; BECERRA; ke1 - Immunization history:: Client reports having NOT received the Covid vaccine. - Social history:: Smoking status: Reported history of juuling and/or vaping. ROS: 05:20 Constitutional: Negative for fever, chills, and weight loss, Eyes: Negative for injury, mh7 pain, redness, and discharge, ENT: Negative for injury, pain, and discharge, Neck: Negative for injury, pain, and swelling, Cardiovascular: Negative for chest pain, palpitations, and edema, Respiratory: Negative for shortness of breath, cough, wheezing, and pleuritic chest pain, Abdomen/GI: Negative for abdominal pain, nausea, vomiting, diarrhea, and constipation, Back: Negative for injury and pain, : Negative for injury, bleeding, discharge, and swelling, MS/Extremity: Negative for injury and deformity, Skin: Negative for injury, rash, and discoloration, Psych: Negative for depression, anxiety, suicide ideation, homicidal ideation, and hallucinations, Allergy/Immunology: Negative for hives, rash, and allergies, Endocrine: Negative for neck swelling, polydipsia, polyuria, polyphagia, and marked weight changes, Hematologic/Lymphatic: Negative for swollen nodes, abnormal bleeding, and unusual bruising. Exam: 05:20 Constitutional: This is a well developed, well nourished patient who is awake, alert, mh7 and in no acute distress. Head/Face: Normocephalic, atraumatic. Eyes: Pupils equal round and reactive to light, extra-ocular motions intact. Lids and lashes normal. Conjunctiva and sclera are non-icteric and not injected. Cornea within normal limits. Periorbital areas with no swelling, redness, or edema. Neck: Trachea midline, no thyromegaly or masses palpated, and no cervical lymphadenopathy. Supple, full range of motion without nuchal rigidity, or vertebral point tenderness. No Meningismus. Chest/axilla: Normal chest wall appearance and motion. Nontender with no deformity. No lesions are appreciated. Cardiovascular: Regular rate and rhythm with a normal S1 and S2. No gallops, murmurs, or rubs. Normal PMI, no JVD. No pulse deficits. Respiratory: Lungs have equal breath sounds bilaterally, clear to auscultation and percussion. No rales, rhonchi or wheezes noted. No increased work of breathing, no retractions or nasal flaring. Abdomen/GI: Soft, non-tender, with normal bowel sounds. No distension or tympany. No guarding or rebound. No evidence of tenderness throughout. Back: No spinal tenderness. No costovertebral tenderness. Full range of motion. Skin: Warm, dry with normal turgor. Normal color with no rashes, no lesions, and no evidence of cellulitis. MS/ Extremity: Pulses equal, no cyanosis. Neurovascular intact. Full, normal range of motion. Neuro: Awake and alert, GCS 15, oriented to person, place, time, and situation. Cranial nerves II-XII grossly intact. Motor strength 5/5 in all extremities. Sensory grossly intact. Cerebellar exam normal. Normal gait. Psych: Awake, alert, with orientation to person, place and time. Behavior, mood, and affect are within normal limits. Vital Signs: 04:11 BP 91 / 55; Pulse 80; Resp 18; Temp 97.6(T); Pulse Ox 97% ; Weight 127.01 kg; Height 5 ke1 ft. 6 in. (167.64 cm); Pain 0/10; 05:52 BP 100 / 63; Pulse 80; Resp 20; Pulse Ox 94% on R/A; Pain 0/10; ke1 08:10 BP 121 / 64; Pulse 79; Resp 18 S; Pulse Ox 96% on R/A; jd3 04:11 Body Mass Index 45.19 (127.01 kg, 167.64 cm) MDM: 07:53 Differential diagnosis: seizure, pseudoseizure. Data reviewed: vital signs, nurses [facility] notes, old medical records, lab test result(s), CBC, electrolytes, EKG. Data interpreted: Pulse oximetry: on room air is 96 %. Interpretation: normal. Counseling: I had a detailed discussion with the patient and/or guardian regarding: the historical points, exam findings, and any diagnostic results supporting the discharge/admit diagnosis, lab results, the need for outpatient follow up, a neurologist, to return to the emergency department if symptoms worsen or persist or if there are any questions or concerns that arise at home. Response to treatment: the patient's symptoms have resolved after treatment, the patient's blood pressure is in an acceptable range, mental status has returned to baseline, the patient no longer shows bradycardia, the patient is not short of breath, the patient is not tachycardic, the patient's pain is gone, the patient's temperature has normalized, the patient is now symptom free, patient is well hydrated. 07:55 Patient medically screened. [facility] 11/25 05:46 Order name: CBC with Diff; Complete Time: 06:23 11/25 05:46 Order name: CMP; Complete Time: 06:23 [facility] 11/25 05:46 Order name: Lipase; Complete Time: 06:23 [facility] 11/25 05:46 Order name: IV Saline Lock; Complete Time: 06:04 [facility] 11/25 07:55 Order name: Urine Dipstick-Ancillary [facility] 11/25 05:46 Order name: Labs collected and sent; Complete Time: 06:05 [facility] 11/25 05:59 Order name: Urine Dipstick-Ancillary (obtain specimen); Complete Time: 07:54 [facility] 11/25 05:59 Order name: Urine Test (obtain specimen); Complete Time: 07:54 [facility] Administered Medications: 06:21 Drug: NS 0.9% 1000 ml Route: IV; Rate: 1000 ml; Site: left antecubital; ke1 08:12 Follow up: Response: No adverse reaction; IV Status: Completed infusion jd3 Disposition Summary: 11/25/21 07:55 Discharge Ordered Location: Home [facility] Problem: an acute exacerbation [facility] Symptoms: have improved [facility] Condition: Stable [facility] Diagnosis - Other seizures [facility] Followup: [facility] - With: Private Physician - When: 1 - 2 days - Reason: Worsening of condition, Recheck today's complaints, Continuance of care, Re-evaluation by your physician Followup: [facility] - With: Cesar Mazariegos MD - When: 1 - 2 days - Reason: Worsening of condition, Recheck today's complaints Discharge Instructions: - Discharge Summary Sheet [facility] - Seizure, Adult, [id number] [facility] Forms: - Medication Reconciliation Form [facility] - Thank You Letter [facility] - Antibiotic Education [facility] - Prescription Opioid Use [facility] Signatures: Dispatcher [employer] Dilan Jorgensen MD MD [facility] Talisha Pride, RN RN ke1 Esteban Lee RN jd3
--- NOTE | 2021-11-25 07:56 | ER ---
Nurse's Notes [facility] Name: Shelley Frank Age: 41 yrs Sex: Female : 1980 Arrival Date: 11/25/2021 Time: 04:10 Bed 15 Private MD: Diagnosis: Other seizures Presentation: 11/25 04:11 Chief complaint: EMS states: Compulsive seizure witnessed by that lasted about ke1 30 s. Coronavirus screen: Vaccine status: Patient reports being unvaccinated. Ebola Screen: No symptoms or risks identified at this time. Initial Sepsis Screen: Does the patient meet any 2 criteria? No. Patient's initial sepsis screen is negative. Does the patient have a suspected source of infection? No. Patient's initial sepsis screen is negative. Risk Assessment: Do you want to hurt yourself or someone else? Patient reports no desire to harm self or others. Onset of symptoms was November 25, 2021 at 03:15. 04:11 Method Of Arrival: EMS ke1 04:11 Acuity: LEONEL 3 ke1 Triage Assessment: 04:27 General: Appears in no apparent distress. Behavior is cooperative, appropriate for age. ke1 Pain: Denies pain. 04:28 Neuro: Level of Consciousness is awake, alert, Oriented to person, place, time, ke1 situation. Historical: - Allergies: 04:26 No Known Allergies; ke1 - PMHx: 04:26 Anxiety; Depression; Diabetes - NIDDM; Dysautonomia; Hypertension; BECERRA; ke1 - Immunization history:: Client reports having NOT received the Covid vaccine. - Social history:: Smoking status: Reported history of juuling and/or vaping. Screenin:28 Abuse screen: Denies threats or abuse. Nutritional screening: No deficits noted. ke1 Tuberculosis screening: No symptoms or risk factors identified. Fall Risk Fall in past 12 months (25 points). Secondary diagnosis (15 points) seizures, No IV (0 pts). Ambulatory Aid- None/Bed Rest/Nurse Assist (0 pts). Gait- Normal/Bed Rest/Wheelchair (0 pts) Mental Status- Oriented to own ability (0 pts). Total Feldman Fall Scale indicates High Risk Score (45 or more points). Fall prevention measures have been instituted. Side Rails Up X 2 Placed Close to Nursing Station Frequent Obs/Assessments Occuring. Assessment: 05:52 Reassessment: Patient appears in no apparent distress at this time. Patient denies pain ke1 at this time. Patient states symptoms have improved. 08:11 General: Appears in no apparent distress. comfortable, Behavior is calm, cooperative, jd3 appropriate for age. Pain: Denies pain. Neuro: Espinal Agitation-Sedation Scale (RASS): 0 - Alert and Calm Level of Consciousness is awake, alert, obeys commands, Oriented to person, place, time, situation, Moves all extremities. Full function Gait is steady, Speech is normal, Pupils are PERRLA. Cardiovascular: Capillary refill < 3 seconds Patient's skin is warm and dry. Respiratory: Airway is patent Respiratory effort is even, unlabored, Respiratory pattern is regular, symmetrical, Denies cough, shortness of breath. Vital Signs: 04:11 BP 91 / 55; Pulse 80; Resp 18; Temp 97.6(T); Pulse Ox 97% ; Weight 127.01 kg; Height 5 ke1 ft. 6 in. (167.64 cm); Pain 0/10; 05:52 BP 100 / 63; Pulse 80; Resp 20; Pulse Ox 94% on R/A; Pain 0/10; ke1 08:10 BP 121 / 64; Pulse 79; Resp 18 S; Pulse Ox 96% on R/A; jd3 04:11 Body Mass Index 45.19 (127.01 kg, 167.64 cm) ke1 ED Course: 04:10 Patient arrived in ED. bb 04:11 Talisha Pride, RN is Primary Nurse. ke1 04:15 Triage completed. ke1 04:27 Dilan Warren MD is Attending Physician. mh7 05:06 Inserted saline lock: 22 gauge in left antecubital area, using aseptic technique. Blood vc1 collected. 06:03 No provider procedures requiring assistance completed. ke1 06:03 Arm band placed on. ke1 06:04 Seizure precautions initiated. ke1 07:55 Cesar Mazariegos MD is Referral Physician. mh7 08:11 IV discontinued, intact, bleeding controlled, No redness/swelling at site. Pressure jd3 dressing applied. Administered Medications: 06:21 Drug: NS 0.9% 1000 ml Route: IV; Rate: 1000 ml; Site: left antecubital; ke1 08:12 Follow up: Response: No adverse reaction; IV Status: Completed infusion jd3 Medication: 08:11 VIS not applicable for this client. jd3 Outcome: 07:55 Discharge ordered by . [facility] 08:11 Discharged to home ambulatory, with family. jd3 08:11 Condition: stable 08:11 Discharge instructions given to patient, Instructed on discharge instructions, follow up and referral plans. Demonstrated understanding of instructions, follow-up care. 08:12 Patient left the ED. jd3 Signatures: Chelsy Tejeda, RN RN Esteban Roche RN RN Dilan Gonzalez MD MD 7 Ngozi Cottrell RN RN vc1 Talisha Pride RN RN ke1
[2021-11-25 08:30] VITALS: TEMP 97.6
[2021-11-25 08:33] VITALS: BP 121/64; O2SAT 96
--- NOTE | 2021-11-29 13:01 | EKG ---
Test Date: 2021-11-25 Test Time: 04:13:28 Inspector Soldering: WM MEASUREMENT RESULTS: Intervals: Rate: 81 MD: 146 QRSD: 90 QT: 400 QTc: 464 [place]: P: 43 MD: 146 QRS: 24 T: 15 INTERPRETIVE STATEMENTS: Normal sinus rhythm Normal ECG Compared to ECG 04/16/2021 03:53:39 Sinus tachycardia no longer present Myocardial infarct finding no longer present Electronically Signed On 11-29-21 12:59:59 CDT by Benjamín Wong
== END 2021-11-25 08:12 | disposition home or self-care (01) ==
LOC: ER 04:05
DX: G40.89 Other seizures (principal); E11.9 Type 2 diabetes mellitus without complications; I10 Essential (primary) hypertension
CPT/HCPCS: 96361; 85025; 36415; 81003; 83690; 80053; 96360; 99284; J7030; 93005

== ENCOUNTER 2025-04-07 08:48 | Observation (INO) | payer OTHER, SELFPAY ==
--- OUTSIDE RECORDS SUMMARY | 2025-04-07 09:01 | XMS REPORT | Continuity of Care Document ---
Author Name Unknown Address [address] [facility] [address] [place] [address] [facility] Address [address] [facility] [address] [place] [address] Care Team Providers Care Computer Programmer Analyst Name Role Phone Margaret Hernandez Primary Care Physician [phone] Margaert Hernandez Attending Clinician Unavailable Chelly Yu Attending Clinician UnaSanjay Scott Attending Clinician Unavailable Doctor Unassigned, [place] Attending Clinician Carolyn Chicas MA Attending Clinician UnavailELIZA Balderrama Attending Clinician Unavailable Zayda Hudson MD Attending Clinician [phone] BALJINDER COLEMAN Attending Clinician Unavailable Baljinder Coleman DO Attending Clinician [phone] ZAYDA HUDSON Attending Clinician UnavailMARYCRUZ Mccann Attending Clinician Unavailable Shamir Quiles MD Attending Clinician [phone] Marycruz Johnson MD Attending Clinician [phone] MARLEN CARY Attending Clinician Eliza Rivera MD Attending Clinician [phone] Dominguez FERMIN, Marlen Mcfarland Attending Clinician [phone] Chelly Yu Attending Clinician [phone] DIEGO PERALTA Attending Clinician Unavailabl e Radu Foster PT, Nidia Attending Clinician Un available Diego Peralta MD Attending Clinician [phone] CHELLY LLAMAS Attending Clinician Unavaila ble 1, [facility] Sleep Lab Bed Attending Clinician Unavail able Zaynab Collado MD Attending Clinician + [phone] ZAYNAB COLLADO Attending Clinician Unavaila ZAYNAB Lara Attending Clinician Unavaila ble Only, [facility] Test Attending Clinician Unavailable Zayda Rocha MD Attending Clinician [phone] ZAYDA ROCHA Attending Clinician Unavailabl e Nurse, Ang Db Attending Clinician Unavailable Sancho Sommers MD Attending Clinician [phone] SANCHO SOMMERS Attending Clinician Unavail able SANCHO SOMMERS Attending Clinician Unavail able FEDE ESPAÑA Attending Clinician Unavailable Fede España MD Attending Clinician [phone] Dexter Shore DO Attending Clinician [phone] Gina Natalie PALOMO Attending Clinician + NATALIE FUENTES Attending Clinician Unavail able BALJINDER COLEMAN Admitting Clinician Unavailable ZAYDA HUDSON Admitting Clinician UnavailZayda Gregorio MD Admitting Clinician [phone] FEDE ESPAÑA Admitting Clinician Unavailable Payers Payer Name Policy Type Policy Number Effective Date Expirati on Date Source [facility] 53 [id number] 2019 00:00:00 [facility] Problems Condition Name Condition Details Condition Category Status Onset Date Resolution Date Last Treatment Date Treating Clinician Comments Source Cervical spondylosi s without myelopathy Cervical spondylosi s without myelopathy Disease Active 12-19 00:00: 00 Overview: Formattin g of this note might be different from the original. Added automatic ally from request for surgery [id number] [facility] Cervical radiculopa thy Cervical radiculopa thy Disease Active 6-21 00:00: 00 Overview: Formattin g of this note might be different from the original. Added automatic ally from request for surgery [id number] [facility] POTS (postural orthostati c tachycardi a syndrome) POTS (postural orthostati c tachycardi a syndrome) Disease Active 2021-07 2-19 00:00: 00 [facility] Mitral valve prolapse determined by imaging Mitral valve prolapse determined by imaging Disease Active 8-30 00:00: 00 [facility] Dysautonom ia orthostati c hypotensio n syndrome Dysautonom ia orthostati c hypotensio n syndrome Disease Active - 00:00: 00 [facility] Generalize d anxiety disorder Generalize d anxiety disorder Disease Active 07-28 00:00: 00 [facility] Other general counseling and advice for contracept verenice management Other general counseling and advice for contracept verenice management Disease Active 2019-07 00:00: 00 [facility] Hypertensi on, essential, benign Hypertensi on, essential, benign Disease Active 2019-07 00:00: 00 Overview: Formattin g of this note might be different from the original. Dr. Lopez with [facility] Other depression Other depression Disease Active 2019-07 00:00: 00 Overview: Formattin g of this note might be different from the original. Reports being seen at [facility] High cholestero l High cholestero l Disease Active 2019-07 00:00: 00 Overview: Formattin g of this note might be different from the original. Reports seen by Gini MAYEN in [facility] Presence of intrauteri ne contracept verenice device Presence of intrauteri ne contracept verenice device Disease Active 2019-07 00:00: 00 [facility] Irregular menstrual cycle Irregular menstrual cycle Disease Active 2019-07 00:00: 00 [facility] 625.9 - FEM GENITAL SYM 625.9 - FEM GENITAL SYM Active 3 [facility] Active 03-10 00:01: 00 2014-02-19 11:07:00 Lee Ann Aggarwal ELEVATED BLOOD PRESSURES ELEVATED BLOOD PRESSURES Active 07/09/2011 [facility] Active 07-09 11:12: 00 2011-07-10 14:37:00 Lee Ann Aggarwal CONTRACTIO NS, TWIN GESTATIONS CONTRACTIO NS, TWIN GESTATIONS Active 06/28/2011 [facility] Active 2010-07 11:20: 00 2011-06-29 11:02:00 Lee Ann Aggarwal ELEVATED BLOOD PRESSURE AND HEADACHE ELEVATED BLOOD PRESSURE AND HEADACHE Active 06/26/2011 [facility] Diagnosis Active 2010-07 15:02: 00 2011-06-29 11:02:00 Lee Ann Aggarwal RELATED RELATED Active 08/29/2010 [facility] Diagnosis Active 08-29 00:00: 00 2011-07-11 12:42:00 Lee Ann Aggarwal Vaginal delivery (finding) Vaginal delivery (finding) Resolved Problem 08/31/2021 [facility] Problem Resolve d 2021-08-31 22:55:21 Lee Ann Aggarwal Cervical spondylosi s (disorder) Cervical spondylosi s (disorder) Active Problem 08/31/2021 [facility] Problem Active 2021-08-31 22:55:21 Lee Ann Aggarwal Dizziness (finding) Dizziness (finding) Active Problem 08/31/2021 [facility] Problem Active 2021-08-31 22:55:21 Lee Ann Aggarwal Hiatal hernia (disorder) Hiatal hernia (disorder) Active Problem 08/31/2021 [facility] Problem Active 2021-08-31 22:55:21 Lee Ann Aggarwal Hyperlipid emia (disorder) Hyperlipid emia (disorder) Active Problem 08/31/2021 [facility] Problem Active 2021-08-31 22:55:21 Lee Ann Aggarwal Hypertensi ve disorder, systemic arterial (disorder) Hypertensi ve disorder, systemic arterial (disorder) Active Problem 08/31/2021 gestationa l [facility] Problem Active 2021-08-31 22:55:21 Memeloina Aggarwal Hypervitam inosis B6 (disorder) Hypervitam inosis B6 (disorder) Active Problem 08/31/2021 [facility] Problem Active 2021-08-31 22:55:21 Memoria marina Aggarwal Laparoscop ic sleeve gastrectom y (procedure ) Laparoscop ic sleeve gastrectom y (procedure ) Active Problem 08/31/2021 [facility] Problem Active 2021-08-31 22:55:21 Memoria marina Aggarwal Migraine (disorder) Migraine (disorder) Active Problem 08/31/2021 [facility] Problem Active 2021-08-31 22:55:21 Memoria marina Aggarwal Neck pain (finding) Neck pain (finding) Active Problem 08/31/2021 [facility] Problem Active 2021-08-31 22:55:21 Memoria marina Aggarwal Pain (finding) Pain (finding) Active Problem 08/31/2021 [facility] Problem Active 2021-08-31 22:55:21 Memoria marina Aggarwal Paresthesi a (finding) Paresthesi a (finding) Active Problem 08/31/2021 [facility] Problem Active 2021-08-31 22:55:21 Memoria marina Aggarwal Sleep apnea (finding) Sleep apnea (finding) Active Problem 08/31/2021 [facility] Problem Active 2021-08-31 22:55:21 Memoria marina Aggarwal Amnesia (finding) Amnesia (finding) Active Problem 08/31/2021 [facility] Problem Active 2021-08-31 22:55:21 Memoria marina Aggarwal Cerebral arachnoid cyst (disorder) Cerebral arachnoid cyst (disorder) Active Problem 08/31/2021 [facility] Problem Active 2021-08-31 22:55:21 Memoria marina Aggarwal 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) Active Problem 08/31/2021 [facility] Problem Active 2021-08-31 22:55:21 Memoria marina Aggarwal Seizure (finding) Seizure (finding) Active Problem 08/31/2021 [facility] Problem Active 2021-08-31 22:55:21 Memoria marina Aggarwal 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) Active Problem 08/31/2021 [facility] Problem Active 2021-08-31 22:55:21 Memoria marina Aggarwal Syncope (disorder) Syncope (disorder) Active Problem 08/31/2021 [facility] Problem Active 2021-08-31 22:55:21 Memeloina Aggarwal Cervical Cervical Active Problem 07/07/2011 CADENCE [facility], [facility] Problem Active 2011-07-07 10:30:36 Memoria marina Aggarwal Hiatal hernia Hiatal hernia Active Problem 07/07/2011 CADENCE [facility], [facility] Problem Active 2011-07-07 10:30:36 Memoria marina Aggarwal Hypertensi on Hypertensi on Active Problem 07/07/2011 <sup>1</gutiérrez p>gestatio nal CADENCE [facility], [facility] Problem Active 2011-07-07 10:30:36 Memoria marina Aggarwal Laparoscop ic sleeve gastrectom y Laparoscop ic sleeve gastrectom y Active Problem 07/07/2011 CADENCE mitchell, [facility] Problem Active 2011-07-07 10:30:36 Memoria marina Aggarwal Migraine Migraine Active Problem 07/07/2011 CADENCE [facility]chell [facility] Problem Active 2011-07-07 10:30:36 Memoria marina Aggarwal Pain Pain Active Problem 07/07/2011 CADENCE mitchell, [facility] Problem Active 2011-07-07 10:30:36 Memoria marina Aggarwal Sleep apnea Sleep apnea Active Problem 07/07/2011 CADENCE mitchell, [facility] Problem Active 2011-07-07 10:30:36 Memoria marina Aggarwal NORMAL DELIVERY NORMAL DELIVERY Active [facility] Active 2011-07-10 14:37:00 Memoria marina Aggarwal [id number] Essential (primary) hypertensi on Problem [facility] [id number] Morbid obesity due to excess calories Problem [facility] [id number] Prediabete s Problem [facility] [id number] Mixed hyperlipid emia Problem [facility] [id number] Arachnoid cyst Problem [facility] [id number] Depression with anxiety Problem [facility] Hyperglyce emanuel due to type 2 diabetes mellitus Type 2 diabetes mellitus with hyperglyce emanuel, without long-term current use of insulin Problem [facility] [id number] Body mass index (BMI) 45.0-49.9, adult Problem [facility] [id number] Raynaud's disease without gangrene Problem [facility] [id number] Long-term (current) use of injectable non-insuli n antidiabet ic drugs Problem [facility] [id number] Gastroesop hageal reflux disease, unspecifie d whether esophagiti s present Problem [facility] [id number] 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 Problem [facility] [id number] Grieving Problem Com[facility] [id number] Rosacea Problem [facility] Allergies, Adverse Reactions, Alerts Allergy Name Allergy Type Status Severity Reaction(s) Onset Date Inactive Date Treating Clinician Comments Source TREE POLLEN-A MERICAN [place] DRUG INGREDI Active ITCHING 2022-0 7-13 00:00: 00 [facility] TREE POLLEN-S WEET GUM DRUG INGREDI Active ITCHING 2022-0 7-13 00:00: 00 [facility] Tree Pollen-A merican Alba Propensi ty to adverse reaction s Active Itching 2022-0 7-13 00:00: 00 [facility] Tree Pollen-S weet Gum Propensi ty to adverse reaction s Active Itching 2022-0 7-13 00:00: 00 [facility] No Known Medicati on Allergie s No Known Medicati on Allergie s Active Memoria marina Aggarwal NO KNOWN ALLERGIE S Drug Class Active [facility] Social History Social Habit Start Date Stop Date Quantity Comments Source Gender identity [facility]ION Not [facility] History of Tobacco Use Current Smoker [facility] Sex Assigned At [facility] Alcohol intake 2023-07-23 00:00:00 2023-07-23 00:00:00 .14 /d [facility] History of Social function 2023-01-21 00:00:00 2023-01-21 00:00:00 [facility] Tobacco Comment 2023-01-14 00:00:00 2023-01-14 00:00:00 vaps [facility] Exposure to SARS-CoV-2 (event) 2022-12-09 00:00:00 2022-12-19 11:54:00 Not sure [facility] Alcoholic beverage intake 2021-09-18 00:00:00 2021-09-18 00:00:00 .14 /d [facility] Alcohol Comment 2021-07-28 00:00:00 2021-07-28 00:00:00 3x a month 4-5 glasses [facility] Tobacco use and exposure 2020-06-01 00:00:00 2020-06-01 00:00:00 Smokeless tobacco non-user [facility] History SDOH Alcohol Frequency 2020-06-01 00:00:00 2020-06-01 00:00:00 2 [facility] History SDOH Alcohol Std Drinks 2020-06-01 00:00:00 2020-06-01 00:00:00 99 [facility] History SDOH Alcohol Binge 2020-06-01 00:00:00 2020-06-01 00:00:00 99 [facility] Smoking Status Start Date Stop Date Source Current Smoker 2023-03-13 00:00:00 [facility] Occasional tobacco smoker 2023-01-14 00:00:00 [facility] Never Smoker [facility] Social History 2021-02-07 14:53:18 2021-02-07 14:53:18 [facility] Medications Ordered Medication Name Filled Medication Name Start Date Stop Date Current Medication? Ordering Clinician Indication Dosage Frequency Signature (SIG) Comments Components Source meloxicam 7.5 mg tablet 02-06 10:18: 36 02-06 00:00 :00 No 1 tablet Orally Once a day for 30 day(s) [facility] meloxicam 7.5 mg tablet 02-06 00:00: 00 Yes TAKE 1 TABLET BY MOUTH 2 (TWO) TIMES DAILY FOR 90 DAYS *TAKE WITH FOOD* [facility] meloxicam 7.5 mg tablet 02-06 00:00: 00 Yes TAKE 1 TABLET BY MOUTH 2 (TWO) TIMES DAILY FOR 90 DAYS *TAKE WITH FOOD* [facility] iopamidol (ISOVUE 370-500 mL) injection 60 mL 01-30 15:33: 00 01-30 15:34 :00 No [id number] 60mL 60 mL, Intravenou s, ONCE, 1 dose, On Sat01/30/23 at 1045, Routine [facility] pantoprazol e (PROTONIX) 80 mg in NaCl 0.9% (NS) 20 mL syringe 01-30 13:45: 00 01-30 13:47 :00 No 80mg 80 mg, IV Push, ONCE, 1 dose, On Sat01/30/23 at 0845, Administer over 2 Minutes, 20 mL [facility] haloperidol lactate (HALDOL) injection 5 mg 01-30 13:45: 00 01-30 12:47 :00 No 5mg 5 mg, Slow IV Push, ONCE, 1 dose, On Sat01/30/23 at 0845, Routine [facility] diphenhydrA MINE (BENADRYL) injection 25 mg 01-30 12:45: 00 01-30 12:48 :00 No 25mg 25 mg, Slow IV Push, ONCE, 1 dose, On Sat01/30/23 at 0745, STAT [facility] NaCl 0.9% (NS) bolus infusion 1,000 mL 01-30 12:45: 00 01-30 15:33 :00 No 1000mL at 999 mL/hr, 1,000 mL, IV Infusion, ONCE, 1 dose, On Sat01/30/23 at 0745, STAT [facility] metoclopram tamiko HCl 10 mg tablet 01-30 00:00: 00 Yes [id number] 10mg Take 1 tablet by mouth every 6 (six) hours. [facility] HYDROcodone -acetaminop hen (NORCO 5) 5-325 mg tablet 1 tablet 01-21 17:26: 50 Yes 1{tbl} 1 tablet, Oral, PRN, 1 dose, Starting on Sat01/21/23 at 1226, Until Discontinu ed, Routine, Pain (scale 4-6), [facility] acetaminoph en (TYLENOL) tablet 650 mg 01-21 17:26: 50 Yes 650mg 650 mg, Oral, PRN, 1 dose, Starting on Sat01/21/23 at 1226, Until Discontinu ed, Routine, Pain (scale 1-3), [facility] iohexoL (OMNIPAQUE 300-50 mL)) injection 01-21 17:11: 00 01-21 17:21 :55 No PRN, Starting on Sat01/21/23 at 1211, Until Sat01/21/23 at 1221, Routine, Intra-op [facility] lidocaine 1% (PF) (XYLOCAINE) injection 01-21 17:10: 00 01-21 17:21 :55 No PRN, Starting on Sat01/21/23 at 1210, Until Sat01/21/23 at 1221, Routine, [facility] 0.9% (NS) injection 01-21 17:07: 00 01-21 17:21 :55 No PRN, Starting on Sat01/21/23 at 1207, Until Sat01/21/23 at 1221, Routine, Intra-op [facility] dexamethaso ne (DECADRON) injection 01-21 17:07: 00 01-21 17:21 :55 No PRN, Starting on Sat01/21/23 at 1207, Until Sat01/21/23 at 1221, Routine, [facility] lactated [facility]ers [facility] infusion 1,000 mL 01-21 15:30: 00 01-21 15:50 :00 No 1000mL at 42 mL/hr, 1,000 mL, IV Infusion, ONCE, 1 dose, On Sat01/21/23 at 1030, Routine, DSU Pre-op [facility] vortioxetin e (TRINTELLIX ) 20 mg Tab 01-21 13:13: 47 Yes Take by mouth. [facility] rosuvastati n (CRESTOR) 20 mg tablet 01-21 13:13: 47 Yes 20mg Take 1 tablet by mouth at bedtime. [facility] metoprolol succinate XL 50 mg 24 hr tablet 01-21 13:13: 47 Yes 100mg Take 2 tablets by mouth in the morning. [facility] metFORMIN 500 mg/5 mL solution 01-21 13:13: 47 Yes 500mg Take 5 mL by mouth in the morning and 5 mL in the evening. Take with meals. [facility] hydrOXYzine 50 mg tablet 01-21 13:13: 47 Yes 50mg Take 1 tablet by mouth 3 (three) times daily as needed for Itching. [facility] gabapentin 300 mg capsule 01-21 13:13: 47 Yes 300mg Take 1 capsule by mouth in the morning and 1 capsule at noon and 1 capsule in the evening. [facility] lamotrigine (LAMICTAL ORAL) 01-21 13:13: 47 Yes Take by mouth. [facility] methocarbam oL 500 mg tablet 01-21 13:13: 47 Yes 1 tablet Orally Four times a day [facility] meloxicam 7.5 mg tablet 01-21 13:13: 47 Yes 1 tablet Orally Once a day for 30 day(s) [facility] hydroCHLORO thiazide 12.5 mg capsule 01-21 13:13: 47 Yes 1 tablet in the morning Orally Once a day [facility] vortioxetin e (TRINTELLIX ) 20 mg Tab 01-21 13:13: 47 Yes Take by mouth. [facility] rosuvastati n (CRESTOR) 20 mg tablet 01-21 13:13: 47 Yes 20mg Take 1 tablet by mouth at bedtime. [facility] hydroCHLORO thiazide 12.5 mg capsule 01-21 13:13: 47 Yes 1 tablet in the morning Orally Once a day [facility] vortioxetin e (TRINTELLIX ) 20 mg Tab 01-21 13:13: 47 Yes Take by mouth. [facility] rosuvastati n (CRESTOR) 20 mg tablet 01-21 13:13: 47 Yes 20mg Take 1 tablet by mouth at bedtime. [facility] Cranberry 400 mg Cap 01-14 12:14: 50 01-14 00:00 :00 No Take by mouth. [facility] lactated ringers IV infusion 1,000 mL 12-19 19:45: 00 12-21 19:30 :47 No [id number] 1000mL [facility] lidocaine 1% (PF) (XYLOCAINE) injection 5 mL 12-19 05:00: 00 12-19 19:08 :00 No [id number] 5mL [facility] bupivacaine (preserv free) (SENSORCAIN E MPF) 0.25 % (2.5 mg/mL) injection 4 mL 12-19 05:00: 00 12-19 19:05 :00 No [id number] 4mL [facility] ketorolac (TORADOL) injection 30 mg 12-19 05:00: 00 12-19 19:07 :00 No [id number] 30mg [facility] buPROPion XL 150 mg 24 hr tablet 12-06 00:00: 00 Yes [facility] azelaic acid-metron idazole-verenice rmectin cream 12-06 00:00: 00 Yes [id number] Apply to area(s) daily. [facility] TRULICITY 3 mg/0.5 mL PnIj 11-28 00:00: 00 Yes INJECT 3 ML SUBCUTANEO USLY ONCE WEEKLY FOR 28 DAYS [facility] ondansetron HCl (ZOFRAN ORAL) 08-29 15:49: 14 Yes Take by mouth. [facility] Trulicity 3 MG/0.5ML Trulicity 3 MG/0.5ML 07-25 00:00: 00 10-23 00:00 :00 No Trulicity 3 MG/0.5ML lidocaine 1% (PF) (XYLOCAINE) injection 5 mL 2021-07 17:00: 00 06-26 16:17 :00 No [id number] 5mL [facility] bupivacaine (preserv free) (SENSORCAIN E MPF) 0.25 % (2.5 mg/mL) injection 4 mL 2021-07 17:00: 00 06-26 16:15 :00 No [id number] 4mL [facility] ketorolac (TORADOL) injection 30 mg 2021-07 16:30: 00 06-26 16:16 :00 No [id number] 30mg [facility] meloxicam 7.5 mg TbDL 2021-07 00:00: 00 09-25 04:59 :00 No [id number] 7.5mg Take 7.5 mg by mouth 2 (two) times daily for 90 days. [facility] methocarbam oL 500 mg tablet 2021-07 00:00: 00 09-25 04:59 :00 No [id number] 500mg Take 1 tablet by mouth 4 (four) times daily for 90 days. [facility] fluticasone propionate (FLOVENT HFA) 220 mcg/actuati on inhaler 2021-07 00:00: 00 01-14 00:00 :00 No [id number] 2{puff} Inhale 2 Puffs every 12 (twelve) hours. [facility] fluticasone propionate 50 mcg/actuati on nasal spray 2021-07 00:00: 00 01-14 00:00 :00 No [id number] 2{spray } Use 2 Sprays in each nostril in the morning. [facility] dexamethaso ne (DECADRON) injection 10 mg 2021-07 21:47: 00 05-29 21:48 :00 No [id number] 10mg [facility] lidocaine 1% (PF) (XYLOCAINE) injection 10 mL 2021-07 21:47: 00 05-29 21:48 :00 No [id number] 10mL [facility] NaCl 0.9% (NS) injection 10 mL 2021-07 21:47: 00 05-29 21:48 :00 No [id number] 10mL [facility] Trulicity 1.5mg/0.5ml Trulicity 1.5mg/0.5ml 2021-07 00:00: 00 08-21 00:00 :00 No Trulicity 1.5mg/0.5m l Ozempic (0.25 or 0.5 MG/DOSE) 2 MG/1.5ML Ozempic (0.25 or 0.5 MG/DOSE) 2 MG/1.5ML 2021-07 00:00: 00 06-16 00:00 :00 No Ozempic (0.25 or 0.5 MG/DOSE) 2 MG/1.5ML Ozempic (0.25 or 0.5 MG/DOSE) 2 MG/1.5ML Ozempic (0.25 or 0.5 MG/DOSE) 2 MG/1.5ML 2021-07 00:00: 00 06-16 00:00 :00 No Ozempic (0.25 or 0.5 MG/DOSE) 2 MG/1.5ML Ozempic (0.25 or 0.5 MG/DOSE) 2 MG/1.5ML Ozempic (0.25 or 0.5 MG/DOSE) 2 MG/1.5ML 2021-07 00:00: 00 06-16 00:00 :00 No Ozempic (0.25 or 0.5 MG/DOSE) 2 MG/1.5ML Ozempic (0.25 or 0.5 MG/DOSE) 2 MG/1.5ML Ozempic (0.25 or 0.5 MG/DOSE) 2 MG/1.5ML 2021-07 00:00: 00 06-16 00:00 :00 No Ozempic (0.25 or 0.5 MG/DOSE) 2 MG/1.5ML methocarbam oL 500 mg tablet 2021-07 00:00: 00 07-30 05:59 :00 No [id number] 500mg 1 tablet Orally Four times a day [facility] meloxicam 7.5 mg tablet 2021-07 00:00: 00 07-30 05:59 :00 No [id number] 7.5mg Take 1 tablet by mouth 2 (two) times daily as needed for Pain (scale 7-10) or Pain (scale 4-6) for up to 90 days. [facility] meloxicam 7.5 mg tablet 03-29 00:00: 00 04-30 00:00 :00 No [id number] 7.5mg Take 1 tablet by mouth 2 (two) times daily as needed for Pain (scale 7-10) or Pain (scale 4-6). [facility] gabapentin 100 mg capsule 03-29 00:00: 00 04-30 00:00 :00 No [id number] 100mg Take 1 capsule by mouth 2 (two) times daily as needed for Pain (scale 4-6). [facility] Ondansetron HCl 4 MG Ondansetron HCl 4 MG 02-16 00:00: 00 No 1{table t} QD Ondansetro n HCl 4 MG Ondansetron HCl 4 MG Ondansetron HCl 4 MG 2021-0 8- 00:00: 00 No 1{table t} QD Ondansetro n HCl 4 MG Ondansetron HCl 4 MG Ondansetron HCl 4 MG 2021-0 8-19 00:00: 00 No 1{table t} QD Ondansetro n HCl 4 MG Ondansetron HCl 4 MG Ondansetron HCl 4 MG 2021-0 8- 00:00: 00 No 1{table t} QD Ondansetro n HCl 4 MG Ondansetron HCl 4 MG Ondansetron HCl 4 MG 8 00:00: 00 No 1{table t} QD Ondansetro n HCl 4 MG Ondansetron HCl 4 MG Ondansetron HCl 4 MG 8-19 00:00: 00 No 1{table t} QD Ondansetro n HCl 4 MG Ondansetron HCl 4 MG Ondansetron HCl 4 MG 8 00:00: 00 No 1{table t} QD Ondansetro n HCl 4 MG predniSONE 20 MG predniSONE 20 MG 01-26 00:00: 00 No 2{table t} QD predniSONE 20 MG Ondansetron HCl 4 MG Ondansetron HCl 4 MG 01-26 00:00: 00 No 1{table t} Ondansetro n HCl 4 MG Azithromyci n 250 MG Azithromyci n 250 MG 01-26 00:00: 00 01-31 00:00 :00 No QD Azithromyc in 250 MG methocarbam oL 500 mg tablet 10-09 00:00: 00 03-16 00:00 :00 No [id number] 500mg Take 1 tablet by mouth 2 (two) times daily as needed (muscle spasm). [facility] Cranberry 400 mg Cap 07-28 13:32: 40 Yes Take by mouth. [facility] levonorgest rel (MIRENA INTRAUTERIN E) 07-28 13:32: 40 Yes 20mg/d Mirena [facility] hydrOXYzine 50 mg tablet 07-28 13:19: 15 Yes 50mg Take 1 tablet by mouth 3 (three) times daily as needed for Itching. [facility] gabapentin 300 mg capsule 07-28 13:19: 15 Yes 300mg Take 1 capsule by mouth in the morning and 1 capsule at noon and 1 capsule in the evening. [facility] lamotrigine (LAMICTAL ORAL) 07-28 13:19: 15 Yes Take by mouth. [facility] metoprolol succinate XL 50 mg 24 hr tablet 07-28 13:17: 51 Yes 100mg Take 2 tablets by mouth in the morning. [facility] traZODone 50 mg tablet 07-27 00:00: 00 Yes [facility] gabapentin 300 MG Oral Capsule 2020-07 20:30: 00 Yes 300 mg = 1 cap, PO, Bedtime, # 30 cap, 3 Refill(s), Pharmacy: [id number], 165.1, cm, 05/31/21 13:56:00 RN RECRUITMENT, Height, 124.545, kg, 05/31/21 13:56:00 RN RECRUITMENT, Weight Memeloina Aggarwal Doxycycline 11-01 17:29: 00 Yes 50 mg, PO, Daily, 0 Refill(s) Lee Ann Aggarwal lamotrigine 25 MG Oral Tablet [Lamictal] 09-08 17:53: 00 Yes 25 mg = 1 tab, PO, BID, # 60 tab, 0 Refill(s) Lee Ann Aggarwal prazosin 2 mg oral capsule 08-22 20:26: 00 Yes 2 mg = 1 cap, PO, TID, 0 Refill(s) Lee Ann Aggarwal vortioxetin e (TRINTELLIX ) 20 mg Tab 2019-07 09:19: 18 Yes Take by mouth. [facility] rosuvastati n (CRESTOR) 20 mg tablet 2019-07 09:19: 18 Yes 20mg Take 1 tablet by mouth at bedtime. [facility] metFORMIN 500 mg/5 mL solution 2019-07 09:19: 18 Yes 500mg Take 5 mL by mouth in the morning and 5 mL in the evening. Take with meals. [facility] tizanidine 2 MG Oral Capsule [Zanaflex] 2019-07 15:42: 00 Yes 2 mg = 1 cap, PO, Bedtime, # 30 cap, 3 Refill(s), Pharmacy: [id number], 165.1, cm, 05/13/20 9:19:00 RN RECRUITMENT, Height, 121.364, kg, 05/13/20 9:19:00 RN RECRUITMENT, Weight Lee Ann Aggarwal metoprolol tartrate 2019-07 15:26: 00 Yes 50 mg, PO, Daily, 0 Refill(s) Lee Ann Aggarwal Ibuprofen 200 MG Oral Tablet [Advil] 03-25 22:49: 00 Yes 4 tablets, As needed, 0 Refill(s) Lee Ann Aggarwal buPROPion 75 mg oral tablet 03-25 22:49: 00 Yes One tablet, Twice a day morning and afternoon, 0 Refill(s) Lee Ann Aggarwal diazepam 5 mg oral tablet 03-25 22:49: 00 No 1 tablet, As needed, 0 Refill(s) Lee Ann Aggarwal metFORMIN 500 mg oral tablet, extended release 03-25 22:49: 00 Yes 500 mg, Once a day, 0 Refill(s) Lee Ann Aggarwal omeprazole 10 mg oral delayed release capsule 03-25 22:49: 00 Yes 1-2 tablets, Daily, 0 Refill(s) Lee Ann Aggarwal topiramate 50 MG Oral Tablet [Topamax] 03-25 22:49: 00 No 1 tablet, Twice a day, 0 Refill(s) Lee Ann Aggarwal vortioxetin e 10 MG Oral Tablet [Trintellix ] 03-25 22:49: 00 Yes 1 tablet, Once a day at bedtime, 0 Refill(s) Lee Ann gray Jasen Stadol 2010-07 00:48: 00 No Dontae Odom 2 mg, 1 mL, Route: IVP, Drug form: INJ, Q3H, PRN Pain, Start date: 06/28/11 18:48:00, Duration: 30 day, Stop date: 07/28/11 18:47:00 Lee Ann Aggarwal Ambien 2010-07 00:47: 00 No Dontae Odom 5 mg, 1 tab, Route: PO, Drug form: TAB, Bedtime, PRN Insomnia, Start date: 06/28/11 18:47:00, Duration: 30 day, Stop date: 07/28/11 18:46:00 Lee Ann Aggarwal famotidine 2010-07 20:00: 00 No Dontae R [place] 20 mg, 2 mL, Route: IVP, Drug form: INJ, ONCALL, Start date: 06/28/11 14:00:00, Duration: 30 day, Stop date: 07/28/11 13:59:00 Lee Ann Aggarwal carboprost 2010-07 20:00: 00 No Dontae R [place] 250 microgram, 1 mL, Route: IM, Drug form: INJ, ONCALL, Start date: 06/28/11 14:00:00, Duration: 30 day, Stop date: 07/28/11 13:59:00 Lee Ann Aggarwal misoprostol 2010-07 20:00: 00 No Dontae R [place] 1,000 microgram, 5 tab, Route: IA, Drug form: TAB, ONCALL, Start date: 06/28/11 14:00:00, Duration: 1 doses or times Lee Ann Aggarwal methylergon ovine 2010-07 20:00: 00 No Dontae R [place] 0.2 mg, 1 mL, Route: IM, Drug form: INJ, ONCALL, Start date: 06/28/11 14:00:00, Duration: 30 day, Stop date: 07/28/11 13:59:00 Lee Ann Aggarwal citric acid-sodium citrate 2010-07 20:00: 00 No Dontae R [place] 30 ml, Route: PO, Drug Form: SOLN, ONCALL, Start date: 06/28/11 14:00:00, Duration: 30 day, Stop date: 07/28/11 13:59:00 Lee Ann Aggarwal oxytocin-ad d to current IV 2010-07 20:00: 00 No Donate R [place] 20 unit, 2 mL, Route: INJ, Drug form: SOLN, ONCALL, Start date: 06/28/11 14:00:00, Duration: 2 day, Stop date: 06/30/11 13:59:00 Lee Ann Aggarwal metoclopram tamiko 2010-07 20:00: 00 No Dontae R [place] 10 mg, 2 mL, Route: IVP, Drug form: INJ, ONCALL, Start date: 06/28/11 14:00:00, Duration: 30 day, Stop date: 07/28/11 13:59:00 Memeloina Aggarwal ondansetron 2010-07 19:23: 00 No Dontae R [place] 4 mg, 2 mL, Route: IVP, Drug form: INJ, Q8H, PRN Nausea & Vomiting, Start date: 06/28/11 13:23:00, Duration: 30 day, Stop date: 07/28/11 13:22:00 Lee Ann Aggarwal promethazin e 2010-07 19:23: 00 No Dontae R [place] 12.5 mg, 0.5 mL, Route: IM, Drug form: INJ, Q4H, PRN Nausea & Vomiting, Start date: 06/28/11 13:23:00, Duration: 30 day, Stop date: 07/28/11 13:22:00 Lee Ann Aggarwal lidocaine 1% 2010-07 19:23: 00 No Dontae R [place] 20 ml, Route: PERCUT, Drug Form: INJ, PRN, PRN Other -See Comment, Start date: 06/28/11 13:23:00, Duration: 1 doses or times, Stop date: Limited # of times Memoria marina Jasen terbutaline 2010-07 19:23: 00 No Dontae R [place] 0.25 mg, 0.25 mL, Route: SUB-Q, Drug form: INJ, PRN, PRN Other -See Comment, Start date: 06/28/11 13:23:00, Duration: 1 doses or times, Stop date: Limited # of times Lee Ann Aggarwal ibuprofen 2010-07 19:23: 00 No Dontae R [place] 800 mg, 1 tab, Route: PO, Drug form: TAB, Q8H, PRN Other -See Comment, Start date: 06/28/11 13:23:00, Duration: 30 day, Stop date: 07/28/11 13:22:00 Memoria marina Aggarwal butorphanol 2010-07 19:23: 00 No Dotnae R [place] 2 mg, 1 mL, Route: IVP, Drug form: INJ, Q2H, PRN Pain Score 6-10, Start date: 06/28/11 13:23:00, Duration: 30 day, Stop date: 07/28/11 13:22:00 Lee Ann Aggarwal acetaminoph en-hydrocod one 325 mg-5 mg oral tablet 2010-07 19:23: 00 No Dontae Odom 1 tab, Route: PO, Drug Form: TAB, Q4H, PRN Pain Score 1-3, Start date: 06/28/11 13:23:00, Duration: 30 day, Stop date: 07/28/11 13:22:00 Lee Ann Aggarwal Lactated Ringers Injection IV 1,000 mL 2010-07 19:23: 00 No Dontae Odom 1,000 mL, Rate: 100 ml/hr, Infuse over: 10 hr, Route: IV, Total Volume: 1,000, Bolus for regional anesthesia per unit protocol, Start date: 06/28/11 13:23:00, Duration: 30 day, Stop date: 07/28/11 13:22:00 Lee Ann Aggarwal Lactated Ringers 1000ml+Tariq gildardo 20 units IV (Premix) 20 unit 2010-07 19:23: 00 No Dontae Odom 20 unit, 1,000 mL, Rate: 125 ml/hr, Infuse over: 8 hr, Route: IV, Total Volume: 1,000 mL, Start date: 06/28/11 13:23:00, Duration: 2 day, Stop date: 06/30/11 13:22:00, Replace Every: 8 hr Lee Ann Aggarwal Lactated Ringers IV 1,000 mL 2010-07 19:23: 00 No Dontae Odom 1,000 mL, Rate: 125 ml/hr, Infuse over: 8 hr, Route: IV, Total Volume: 1,000, Start date: 06/28/11 13:23:00, Duration: 30 day, Stop date: 07/28/11 13:22:00 Lee Ann Aggarwal Adderall 10 mg oral tablet 2010-07 23:03: 19 Yes 1 tab, PO, BID, PRN, anxiety, Substituti on Allowed, TAB Lee Ann Aggarwal Non-Formula ry Home Medication 2010-07 23:02: 06 Yes 1 tab, PO, Daily, Substituti on Allowed Lee Ann Aggarwal influenza virus vaccine, inactivated 2009-07 013 03:00: 00 No SYSTEM SYSTEM 0.5 ml, Route: IM, Drug Form: INJ, ONCALL, Start date: 04/11/10 22:00:00, Duration: 1 doses or times Lee Ann Aggarwal Baclofen 10 MG Baclofen 10 MG No 1{table t_as_ne eded} TID Baclofen 10 MG LaMICtal 200 MG LaMICtal 200 MG No 1{table t} QD LaMICtal 200 MG hydrOXYzine HCl 50 MG hydrOXYzine HCl 50 MG No 2{table t_as_ne eded} BID hydrOXYzin e HCl 50 MG Mirena Mirena No Mirena Robaxin 1000 MG/10ML Robaxin 1000 MG/10ML No 10{ml_a s_neede d} TID Robaxin 1000 MG/10ML Gabapentin 100 MG Gabapentin 100 MG No 1{capsu le} BID Gabapentin 100 MG metFORMIN HCl ER 500 MG metFORMIN HCl ER 500 MG No 1{table t_with_ evening _meal} QD metFORMIN HCl ER 500 MG Omeprazole 40 MG Omeprazole 40 MG No QD Omeprazole 40 MG Lisinopril 40 MG Lisinopril 40 MG No QD Lisinopril 40 MG Metoprolol Tartrate 100 MG Metoprolol Tartrate 100 MG No 1{table t_with_ food} QD Metoprolol Tartrate 100 MG traZODone HCl 50 MG traZODone HCl 50 MG No 1{table t_at_be dtime_a s_neede d} QD traZODone HCl 50 MG Lisinopril 40 MG Lisinopril 40 MG No Lisinopril 40 MG Mirena Mirena No Mirena Metoprolol Tartrate 100 MG Metoprolol Tartrate 100 MG No 1{table t_with_ food} QD Metoprolol Tartrate 100 MG Gabapentin 100 MG Gabapentin 100 MG No 1{capsu le} BID Gabapentin 100 MG hydrOXYzine HCl 50 MG hydrOXYzine HCl 50 MG No 2{table t_as_ne eded} BID hydrOXYzin e HCl 50 MG Robaxin 1000 MG/10ML Robaxin 1000 MG/10ML No 10{ml_a s_neede d} TID Robaxin 1000 MG/10ML Omeprazole 40 MG Omeprazole 40 MG No Omeprazole 40 MG LaMICtal 200 MG LaMICtal 200 MG No 1{table t} QD LaMICtal 200 MG Minocycline HCl 50 MG Minocycline HCl 50 MG No Minocyclin e HCl 50 MG metFORMIN HCl ER 500 MG metFORMIN HCl ER 500 MG No BID metFORMIN HCl ER 500 MG Baclofen 10 MG Baclofen 10 MG No 1{table t_as_ne eded} TID Baclofen 10 MG Robaxin 1000 MG/10ML Robaxin 1000 MG/10ML No 10{ml_a s_neede d} TID Robaxin 1000 MG/10ML LaMICtal 200 MG LaMICtal 200 MG No 1{table t} QD LaMICtal 200 MG Gabapentin 100 MG Gabapentin 100 MG No 1{capsu le} BID Gabapentin 100 MG Omeprazole 40 MG Omeprazole 40 MG No Omeprazole 40 MG Metoprolol Tartrate 100 MG Metoprolol Tartrate 100 MG No 1{table t_with_ food} QD Metoprolol Tartrate 100 MG metFORMIN HCl ER 500 MG metFORMIN HCl ER 500 MG No BID metFORMIN HCl ER 500 MG Minocycline HCl 50 MG Minocycline HCl 50 MG No Minocyclin e HCl 50 MG Mirena Mirena No Mirena traZODone HCl 50 MG traZODone HCl 50 MG No 1{table t_at_be dtime_a s_neede d} QD traZODone HCl 50 MG Lisinopril 40 MG Lisinopril 40 MG No Lisinopril 40 MG hydrOXYzine HCl 50 MG hydrOXYzine HCl 50 MG No 2{table t_as_ne eded} BID hydrOXYzin e HCl 50 MG Robaxin 1000 MG/10ML Robaxin 1000 MG/10ML No 10{ml_a s_neede d} TID Robaxin 1000 MG/10ML LaMICtal 200 MG LaMICtal 200 MG No 1{table t} QD LaMICtal 200 MG Gabapentin 100 MG Gabapentin 100 MG No 1{capsu le} BID Gabapentin 100 MG Omeprazole 40 MG Omeprazole 40 MG No Omeprazole 40 MG Metoprolol Tartrate 100 MG Metoprolol Tartrate 100 MG No 1{table t_with_ food} QD Metoprolol Tartrate 100 MG metFORMIN HCl ER 500 MG metFORMIN HCl ER 500 MG No BID metFORMIN HCl ER 500 MG Minocycline HCl 50 MG Minocycline HCl 50 MG No Minocyclin e HCl 50 MG Mirena Mirena No Mirena traZODone HCl 50 MG traZODone HCl 50 MG No 1{table t_at_be dtime_a s_neede d} QD traZODone HCl 50 MG Lisinopril 40 MG Lisinopril 40 MG No Lisinopril 40 MG hydrOXYzine HCl 50 MG hydrOXYzine HCl 50 MG No 2{table t_as_ne eded} BID hydrOXYzin e HCl 50 MG LaMICtal 200 MG LaMICtal 200 MG No 1{table t} QD LaMICtal 200 MG hydrOXYzine HCl 50 MG hydrOXYzine HCl 50 MG No 2{table t_as_ne eded} BID hydrOXYzin e HCl 50 MG hydroCHLORO thiazide 12.5 MG hydroCHLORO thiazide 12.5 MG No 1{table t_in_th e_morni ng} QD hydroCHLOR Othiazide 12.5 MG Robaxin 1000 MG/10ML Robaxin 1000 MG/10ML No 10{ml_a s_neede d} TID Robaxin 1000 MG/10ML Omeprazole 40 MG Omeprazole 40 MG No Omeprazole 40 MG metFORMIN HCl ER 500 MG metFORMIN HCl ER 500 MG No BID metFORMIN HCl ER 500 MG Trintellix 20 MG Trintellix 20 MG No 1{table t} QD Trintellix 20 MG Gabapentin 100 MG Gabapentin 100 MG No 1{capsu le} BID Gabapentin 100 MG Rosuvastati n Calcium 20 MG Rosuvastati n Calcium 20 MG No QD Rosuvastat in Calcium 20 MG Lisinopril 40 MG Lisinopril 40 MG No Lisinopril 40 MG Metoprolol Tartrate 100 MG Metoprolol Tartrate 100 MG No 1{table t_with_ food} QD Metoprolol Tartrate 100 MG traZODone HCl 50 MG traZODone HCl 50 MG No 1{table t_at_be dtime_a s_neede d} QD traZODone HCl 50 MG Minocycline HCl 50 MG Minocycline HCl 50 MG No Minocyclin e HCl 50 MG hydrOXYzine HCl 50 MG hydrOXYzine HCl 50 MG No 2{table t_as_ne eded} BID hydrOXYzin e HCl 50 MG Mirena Mirena No Mirena Robaxin 1000 MG/10ML Robaxin 1000 MG/10ML No 10{ml_a s_neede d} TID Robaxin 1000 MG/10ML Lisinopril 40 MG Lisinopril 40 MG No Lisinopril 40 MG LaMICtal 200 MG LaMICtal 200 MG No 1{table t} QD LaMICtal 200 MG Omeprazole 40 MG Omeprazole 40 MG No Omeprazole 40 MG traZODone HCl 50 MG traZODone HCl 50 MG No 1{table t_at_be dtime_a s_neede d} QD traZODone HCl 50 MG Trintellix 20 MG Trintellix 20 MG No 1{table t} QD Trintellix 20 MG hydroCHLORO thiazide 12.5 MG hydroCHLORO thiazide 12.5 MG No 1{table t_in_th e_morni ng} QD hydroCHLOR Othiazide 12.5 MG Metoprolol Tartrate 100 MG Metoprolol Tartrate 100 MG No 1{table t_with_ food} QD Metoprolol Tartrate 100 MG Minocycline HCl 50 MG Minocycline HCl 50 MG No Minocyclin e HCl 50 MG metFORMIN HCl ER 500 MG metFORMIN HCl ER 500 MG No BID metFORMIN HCl ER 500 MG OneTouch Ultra 2 w/Device OneTouch Ultra 2 w/Device No OneTouch Ultra 2 w/Device Gabapentin 100 MG Gabapentin 100 MG No 1{capsu le} BID Gabapentin 100 MG Rosuvastati n Calcium 20 MG Rosuvastati n Calcium 20 MG No QD Rosuvastat in Calcium 20 MG LaMICtal 200 MG LaMICtal 200 MG No 1{table t} QD LaMICtal 200 MG hydrOXYzine HCl 50 MG hydrOXYzine HCl 50 MG No 2{table t_as_ne eded} BID hydrOXYzin e HCl 50 MG OneTouch Ultra 2 w/Device OneTouch Ultra 2 w/Device No OneTouch Ultra 2 w/Device metFORMIN HCl ER 500 MG metFORMIN HCl ER 500 MG No BID metFORMIN HCl ER 500 MG Metoprolol Tartrate 100 MG Metoprolol Tartrate 100 MG No 1{table t_with_ food} QD Metoprolol Tartrate 100 MG Meloxicam 7.5 MG Meloxicam 7.5 MG No 1{table t} QD Meloxicam 7.5 MG Trulicity 1.5 MG/0.5ML Trulicity 1.5 MG/0.5ML No Trulicity 1.5 MG/0.5ML traZODone HCl 50 MG traZODone HCl 50 MG No 1{table t_at_be dtime_a s_neede d} QD traZODone HCl 50 MG Rosuvastati n Calcium 20 MG Rosuvastati n Calcium 20 MG No QD Rosuvastat in Calcium 20 MG Trintellix 20 MG Trintellix 20 MG No 1{table t} QD Trintellix 20 MG hydroCHLORO thiazide 12.5 MG hydroCHLORO thiazide 12.5 MG No 1{table t_inth e_morni ng} QD hydroCHLOR Othiazide 12.5 MG Robaxin 1000 MG/10ML Robaxin 1000 MG/10ML No 10{ml_a s_neede d} TID Robaxin 1000 MG/10ML Gabapentin 100 MG Gabapentin 100 MG No 1{capsu le} BID Gabapentin 100 MG Minocycline HCl 50 MG Minocycline HCl 50 MG No Minocyclin e HCl 50 MG Mirena Mirena No Mirena Omeprazole 40 MG Omeprazole 40 MG No Omeprazole 40 MG Lisinopril 40 MG Lisinopril 40 MG No Lisinopril 40 MG metFORMIN HCl ER 500 MG metFORMIN HCl ER 500 MG No metFORMIN HCl ER 500 MG hydroCHLORO thiazide 12.5 MG hydroCHLORO thiazide 12.5 MG No 1{table t_in_ e_morni ng} QD hydroCHLOR Othiazide 12.5 MG Gabapentin 100 MG Gabapentin 100 MG No 1{capsu le} BID Gabapentin 100 MG Reglan 10 MG Reglan 10 MG No 1{table t_befor e_meals } BID Reglan 10 MG Sucralfate 1 GM Sucralfate 1 GM No 1{table t_on_an _empty_ stomach } BID Sucralfate 1 GM Trulicity 4.5 MG/0.5ML Trulicity 4.5 MG/0.5ML No .5{ml} Trulicity 4.5 MG/0.5ML Ondansetron HCl 8 MG Ondansetron HCl 8 MG No 1{table t_as_ne eded} BID Ondansetro n HCl 8 MG Mirena Mirena No Mirena hydrOXYzine HCl 25 MG hydrOXYzine HCl 25 MG No 2{table t_as_ne eded} BID hydrOXYzin e HCl 25 MG Metoprolol Tartrate 100 MG Metoprolol Tartrate 100 MG No 1{table t_with_ food} QD Metoprolol Tartrate 100 MG Methocarbam ol 500 MG Methocarbam ol 500 MG No 1{table t} QID Methocarba mol 500 MG Rosuvastati n Calcium 20 MG Rosuvastati n Calcium 20 MG No QD Rosuvastat in Calcium 20 MG traZODone HCl 50 MG traZODone HCl 50 MG No 2{table t_at_be dtime_a s_neede d} QD traZODone HCl 50 MG Meloxicam 7.5 MG Meloxicam 7.5 MG No 1{table t} QD Meloxicam 7.5 MG OneTouch Ultra 2 w/Device OneTouch Ultra 2 w/Device No OneTouch Ultra 2 w/Device Lisinopril 20 MG Lisinopril 20 MG No QD Lisinopril 20 MG Trintellix 20 MG Trintellix 20 MG No 1{table t} QD Trintellix 20 MG buPROPion HCl ER (XL) 300 MG buPROPion HCl ER (XL) 300 MG No 1{table t_in_th e_morni ng} QD buPROPion HCl ER (XL) 300 MG Omeprazole 40 MG Omeprazole 40 MG No Omeprazole 40 MG metFORMIN HCl ER 500 MG metFORMIN HCl ER 500 MG No metFORMIN HCl ER 500 MG hydroCHLORO thiazide 12.5 MG hydroCHLORO thiazide 12.5 MG No 1{table t_in_th e_morni ng} QD hydroCHLOR Othiazide 12.5 MG Gabapentin 100 MG Gabapentin 100 MG No 1{capsu le} BID Gabapentin 100 MG Reglan 10 MG Reglan 10 MG No 1{table t_befor e_meals } BID Reglan 10 MG Sucralfate 1 GM Sucralfate 1 GM No 1{table t_on_an _empty_ stomach } BID Sucralfate 1 GM Trulicity 4.5 MG/0.5ML Trulicity 4.5 MG/0.5ML No .5{ml} Trulicity 4.5 MG/0.5ML Ondansetron HCl 8 MG Ondansetron HCl 8 MG No 1{table t_as_ne eded} BID Ondansetro n HCl 8 MG Mirena Mirena No Mirena hydrOXYzine HCl 25 MG hydrOXYzine HCl 25 MG No 2{table t_as_ne eded} BID hydrOXYzin e HCl 25 MG Metoprolol Tartrate 100 MG Metoprolol Tartrate 100 MG No 1{table t_with_ food} QD Metoprolol Tartrate 100 MG Methocarbam ol 500 MG Methocarbam ol 500 MG No 1{table t} QID Methocarba mol 500 MG Rosuvastati n Calcium 20 MG Rosuvastati n Calcium 20 MG No QD Rosuvastat in Calcium 20 MG traZODone HCl 50 MG traZODone HCl 50 MG No 2{table t_at_be dtime_a s_neede d} QD traZODone HCl 50 MG Meloxicam 7.5 MG Meloxicam 7.5 MG No 1{table t} QD Meloxicam 7.5 MG OneTouch Ultra 2 w/Device OneTouch Ultra 2 w/Device No OneTouch Ultra 2 w/Device Lisinopril 20 MG Lisinopril 20 MG No QD Lisinopril 20 MG Trintellix 20 MG Trintellix 20 MG No 1{table t} QD Trintellix 20 MG buPROPion HCl ER (XL) 300 MG buPROPion HCl ER (XL) 300 MG No 1{table t_in_ e_morni ng} QD buPROPion HCl ER (XL) 300 MG Omeprazole 40 MG Omeprazole 40 MG No Omeprazole 40 MG metFORMIN HCl ER 500 MG metFORMIN HCl ER 500 MG No metFORMIN HCl ER 500 MG hydroCHLORO thiazide 12.5 MG hydroCHLORO thiazide 12.5 MG No 1{table t_in_th e_morni ng} QD hydroCHLOR Othiazide 12.5 MG Gabapentin 100 MG Gabapentin 100 MG No 1{capsu le} BID Gabapentin 100 MG Reglan 10 MG Reglan 10 MG No 1{table t_befor e_meals } BID Reglan 10 MG Sucralfate 1 GM Sucralfate 1 GM No 1{table t_on_an _empty_ stomach } BID Sucralfate 1 GM Trulicity 4.5 MG/0.5ML Trulicity 4.5 MG/0.5ML No .5{ml} Trulicity 4.5 MG/0.5ML Ondansetron HCl 8 MG Ondansetron HCl 8 MG No 1{table t_as_ne eded} BID Ondansetro n HCl 8 MG Mirena Mirena No Mirena hydrOXYzine HCl 25 MG hydrOXYzine HCl 25 MG No 2{table t_as_ne eded} BID hydrOXYzin e HCl 25 MG Metoprolol Tartrate 100 MG Metoprolol Tartrate 100 MG No 1{table t_with_ food} QD Metoprolol Tartrate 100 MG Methocarbam ol 500 MG Methocarbam ol 500 MG No 1{table t} QID Methocarba mol 500 MG Rosuvastati n Calcium 20 MG Rosuvastati n Calcium 20 MG No QD Rosuvastat in Calcium 20 MG traZODone HCl 50 MG traZODone HCl 50 MG No 2{table t_at_be dtime_a s_neede d} QD traZODone HCl 50 MG Meloxicam 7.5 MG Meloxicam 7.5 MG No 1{table t} QD Meloxicam 7.5 MG OneTouch Ultra 2 w/Device OneTouch Ultra 2 w/Device No OneTouch Ultra 2 w/Device Lisinopril 20 MG Lisinopril 20 MG No QD Lisinopril 20 MG Trintellix 20 MG Trintellix 20 MG No 1{table t} QD Trintellix 20 MG buPROPion HCl ER (XL) 300 MG buPROPion HCl ER (XL) 300 MG No 1{table t_in_th e_morni ng} QD buPROPion HCl ER (XL) 300 MG Omeprazole 40 MG Omeprazole 40 MG No Omeprazole 40 MG Rosuvastati n Calcium 20 MG Rosuvastati n Calcium 20 MG No QD Rosuvastat in Calcium 20 MG metFORMIN HCl ER 500 MG metFORMIN HCl ER 500 MG No metFORMIN HCl ER 500 MG hydroCHLORO thiazide 12.5 MG hydroCHLORO thiazide 12.5 MG No 1{table t_in_ e_morni ng} QD hydroCHLOR Othiazide 12.5 MG Gabapentin 100 MG Gabapentin 100 MG No 1{capsu le} BID Gabapentin 100 MG Reglan 10 MG Reglan 10 MG No 1{table t_befor e_meals } BID Reglan 10 MG Sucralfate 1 GM Sucralfate 1 GM No 1{table t_on_an _empty_ stomach } BID Sucralfate 1 GM Trulicity 4.5 MG/0.5ML Trulicity 4.5 MG/0.5ML No .5{ml} Trulicity 4.5 MG/0.5ML Ondansetron HCl 8 MG Ondansetron HCl 8 MG No 1{table t_as_ne eded} BID Ondansetro n HCl 8 MG Metoprolol Tartrate 100 MG Metoprolol Tartrate 100 MG No 1{table t_with_ food} QD Metoprolol Tartrate 100 MG Mirena Mirena No Mirena hydrOXYzine HCl 25 MG hydrOXYzine HCl 25 MG No 2{table t_as_ne eded} BID hydrOXYzin e HCl 25 MG Metoprolol Tartrate 100 MG Metoprolol Tartrate 100 MG No 1{table t_with_ food} QD Metoprolol Tartrate 100 MG Methocarbam ol 500 MG Methocarbam ol 500 MG No 1{table t} QID Methocarba mol 500 MG Rosuvastati n Calcium 20 MG Rosuvastati n Calcium 20 MG No QD Rosuvastat in Calcium 20 MG traZODone HCl 50 MG traZODone HCl 50 MG No 2{table t_at_be dtime_a s_neede d} QD traZODone HCl 50 MG Meloxicam 7.5 MG Meloxicam 7.5 MG No 1{table t} QD Meloxicam 7.5 MG OneTouch Ultra 2 w/Device OneTouch Ultra 2 w/Device No OneTouch Ultra 2 w/Device Lisinopril 20 MG Lisinopril 20 MG No QD Lisinopril 20 MG Trintellix 20 MG Trintellix 20 MG No 1{table t} QD Trintellix 20 MG Trintellix 20 MG Trintellix 20 MG No 1{table t} QD Trintellix 20 MG buPROPion HCl ER (XL) 300 MG buPROPion HCl ER (XL) 300 MG No 1{table t_in_th e_morni ng} QD buPROPion HCl ER (XL) 300 MG Omeprazole 40 MG Omeprazole 40 MG No Omeprazole 40 MG metFORMIN HCl ER 500 MG metFORMIN HCl ER 500 MG No metFORMIN HCl ER 500 MG metFORMIN HCl ER 500 MG metFORMIN HCl ER 500 MG No metFORMIN HCl ER 500 MG hydroCHLORO thiazide 12.5 MG hydroCHLORO thiazide 12.5 MG No 1{table t_in_th e_morni ng} QD hydroCHLOR Othiazide 12.5 MG Gabapentin 100 MG Gabapentin 100 MG No 1{capsu le} BID Gabapentin 100 MG Reglan 10 MG Reglan 10 MG No 1{table t_befor e_meals } BID Reglan 10 MG Sucralfate 1 GM Sucralfate 1 GM No 1{table t_on_an _empty_ stomach } BID Sucralfate 1 GM Trulicity 4.5 MG/0.5ML Trulicity 4.5 MG/0.5ML No .5{ml} Trulicity 4.5 MG/0.5ML Ondansetron HCl 8 MG Ondansetron HCl 8 MG No 1{table t_as_ne eded} BID Ondansetro n HCl 8 MG LaMICtal 200 MG LaMICtal 200 MG No 1{table t} QD LaMICtal 200 MG Mirena Mirena No Mirena hydrOXYzine HCl 25 MG hydrOXYzine HCl 25 MG No 2{table t_as_ne eded} BID hydrOXYzin e HCl 25 MG Metoprolol Tartrate 100 MG Metoprolol Tartrate 100 MG No 1{table t_with_ food} QD Metoprolol Tartrate 100 MG Methocarbam ol 500 MG Methocarbam ol 500 MG No 1{table t} QID Methocarba mol 500 MG Rosuvastati n Calcium 20 MG Rosuvastati n Calcium 20 MG No QD Rosuvastat in Calcium 20 MG traZODone HCl 50 MG traZODone HCl 50 MG No 2{table t_at_be dtime_a s_neede d} QD traZODone HCl 50 MG Meloxicam 7.5 MG Meloxicam 7.5 MG No 1{table t} QD Meloxicam 7.5 MG OneTouch Ultra 2 w/Device OneTouch Ultra 2 w/Device No OneTouch Ultra 2 w/Device Lisinopril 20 MG Lisinopril 20 MG No QD Lisinopril 20 MG Trintellix 20 MG Trintellix 20 MG No 1{table t} QD Trintellix 20 MG Baclofen 10 MG Baclofen 10 MG No 1{table t_as_ne eded} TID Baclofen 10 MG buPROPion HCl ER (XL) 300 MG buPROPion HCl ER (XL) 300 MG No 1{table t_in_th e_morni ng} QD buPROPion HCl ER (XL) 300 MG Omeprazole 40 MG Omeprazole 40 MG No Omeprazole 40 MG metFORMIN HCl ER 500 MG metFORMIN HCl ER 500 MG No metFORMIN HCl ER 500 MG hydroCHLORO thiazide 12.5 MG hydroCHLORO thiazide 12.5 MG No 1{table t_in_th e_morni ng} QD hydroCHLOR Othiazide 12.5 MG Gabapentin 100 MG Gabapentin 100 MG No 1{capsu le} BID Gabapentin 100 MG Reglan 10 MG Reglan 10 MG No 1{table t_befor e_meals } BID Reglan 10 MG Sucralfate 1 GM Sucralfate 1 GM No 1{table t_on_an _empty_ stomach } BID Sucralfate 1 GM Trulicity 4.5 MG/0.5ML Trulicity 4.5 MG/0.5ML No .5{ml} Trulicity 4.5 MG/0.5ML Minocycline HCl 50 MG Minocycline HCl 50 MG No Minocyclin e HCl 50 MG Ondansetron HCl 8 MG Ondansetron HCl 8 MG No 1{table t_as_ne eded} BID Ondansetro n HCl 8 MG Mirena Mirena No Mirena hydrOXYzine HCl 25 MG hydrOXYzine HCl 25 MG No 2{table t_as_ne eded} BID hydrOXYzin e HCl 25 MG Metoprolol Tartrate 100 MG Metoprolol Tartrate 100 MG No 1{table t_with_ food} QD Metoprolol Tartrate 100 MG Methocarbam ol 500 MG Methocarbam ol 500 MG No 1{table t} QID Methocarba mol 500 MG Rosuvastati n Calcium 20 MG Rosuvastati n Calcium 20 MG No QD Rosuvastat in Calcium 20 MG traZODone HCl 50 MG traZODone HCl 50 MG No 2{table t_at_be dtime_a s_neede d} QD traZODone HCl 50 MG Meloxicam 7.5 MG Meloxicam 7.5 MG No 1{table t} QD Meloxicam 7.5 MG OneTouch Ultra 2 w/Device OneTouch Ultra 2 w/Device No OneTouch Ultra 2 w/Device Lisinopril 20 MG Lisinopril 20 MG No QD Lisinopril 20 MG hydrOXYzine HCl 50 MG hydrOXYzine HCl 50 MG No 2{table t_as_ne eded} BID hydrOXYzin e HCl 50 MG Trintellix 20 MG Trintellix 20 MG No 1{table t} QD Trintellix 20 MG buPROPion HCl ER (XL) 300 MG buPROPion HCl ER (XL) 300 MG No 1{table t_in_th e_morni ng} QD buPROPion HCl ER (XL) 300 MG Omeprazole 40 MG Omeprazole 40 MG No Omeprazole 40 MG metFORMIN HCl ER 500 MG metFORMIN HCl ER 500 MG No metFORMIN HCl ER 500 MG hydroCHLORO thiazide 12.5 MG hydroCHLORO thiazide 12.5 MG No 1{table t_in_th e_morni ng} QD hydroCHLOR Othiazide 12.5 MG Gabapentin 100 MG Gabapentin 100 MG No 1{capsu le} BID Gabapentin 100 MG Omeprazole 40 MG Omeprazole 40 MG No Omeprazole 40 MG Reglan 10 MG Reglan 10 MG No 1{table t_befor e_meals } BID Reglan 10 MG Sucralfate 1 GM Sucralfate 1 GM No 1{table t_on_an _empty_ stomach } BID Sucralfate 1 GM Trulicity 4.5 MG/0.5ML Trulicity 4.5 MG/0.5ML No .5{ml} Trulicity 4.5 MG/0.5ML Ondansetron HCl 8 MG Ondansetron HCl 8 MG No 1{table t_as_ne eded} BID Ondansetro n HCl 8 MG Mirena Mirena No Mirena hydrOXYzine HCl 25 MG hydrOXYzine HCl 25 MG No 2{table t_as_ne eded} BID hydrOXYzin e HCl 25 MG Metoprolol Tartrate 100 MG Metoprolol Tartrate 100 MG No 1{table t_with_ food} QD Metoprolol Tartrate 100 MG Methocarbam ol 500 MG Methocarbam ol 500 MG No 1{table t} QID Methocarba mol 500 MG Rosuvastati n Calcium 20 MG Rosuvastati n Calcium 20 MG No QD Rosuvastat in Calcium 20 MG traZODone HCl 50 MG traZODone HCl 50 MG No 2{table t_at_be dtime_a s_neede d} QD traZODone HCl 50 MG traZODone HCl 50 MG traZODone HCl 50 MG No 1{table t_at_be dtime_a s_neede d} QD traZODone HCl 50 MG Meloxicam 7.5 MG Meloxicam 7.5 MG No 1{table t} QD Meloxicam 7.5 MG OneTouch Ultra 2 w/Device OneTouch Ultra 2 w/Device No OneTouch Ultra 2 w/Device Lisinopril 20 MG Lisinopril 20 MG No QD Lisinopril 20 MG Trintellix 20 MG Trintellix 20 MG No 1{table t} QD Trintellix 20 MG buPROPion HCl ER (XL) 300 MG buPROPion HCl ER (XL) 300 MG No 1{table t_in_th e_morni ng} QD buPROPion HCl ER (XL) 300 MG Omeprazole 40 MG Omeprazole 40 MG No Omeprazole 40 MG Mirena Mirena No Mirena Lisinopril 40 MG Lisinopril 40 MG No QD Lisinopril 40 MG metFORMIN HCl ER 500 MG metFORMIN HCl ER 500 MG No metFORMIN HCl ER 500 MG hydroCHLORO thiazide 12.5 MG hydroCHLORO thiazide 12.5 MG No 1{table t_in e_morni ng} QD hydroCHLOR Othiazide 12.5 MG Gabapentin 100 MG Gabapentin 100 MG No 1{capsu le} BID Gabapentin 100 MG Reglan 10 MG Reglan 10 MG No 1{table t_befor e_meals } BID Reglan 10 MG Sucralfate 1 GM Sucralfate 1 GM No 1{table t_on_an _empty_ stomach } BID Sucralfate 1 GM Trulicity 4.5 MG/0.5ML Trulicity 4.5 MG/0.5ML No .5{ml} Trulicity 4.5 MG/0.5ML Ondansetron HCl 8 MG Ondansetron HCl 8 MG No 1{table t_as_ne eded} BID Ondansetro n HCl 8 MG Mirena Mirena No Mirena hydrOXYzine HCl 25 MG hydrOXYzine HCl 25 MG No 2{table t_as_ne eded} BID hydrOXYzin e HCl 25 MG Metoprolol Tartrate 100 MG Metoprolol Tartrate 100 MG No 1{table t_with_ food} QD Metoprolol Tartrate 100 MG Methocarbam ol 500 MG Methocarbam ol 500 MG No 1{table t} QID Methocarba mol 500 MG Rosuvastati n Calcium 20 MG Rosuvastati n Calcium 20 MG No QD Rosuvastat in Calcium 20 MG traZODone HCl 50 MG traZODone HCl 50 MG No 2{table t_at_be dtime_a s_neede d} QD traZODone HCl 50 MG Meloxicam 7.5 MG Meloxicam 7.5 MG No 1{table t} QD Meloxicam 7.5 MG OneTouch Ultra 2 w/Device OneTouch Ultra 2 w/Device No OneTouch Ultra 2 w/Device Lisinopril 20 MG Lisinopril 20 MG No QD Lisinopril 20 MG Trintellix 20 MG Trintellix 20 MG No 1{table t} QD Trintellix 20 MG buPROPion HCl ER (XL) 300 MG buPROPion HCl ER (XL) 300 MG No 1{table t_in_ e_morni ng} QD buPROPion HCl ER (XL) 300 MG Omeprazole 40 MG Omeprazole 40 MG No Omeprazole 40 MG Minocycline HCl 50 MG Minocycline HCl 50 MG 02-11 00:00 :00 No QD Minocyclin e HCl 50 MG Immunizations Ordered Immunization Name Filled Immunization Name Date Status Comments Source Influenza Virus Vaccine Quad IM, Preserv and ABX Free 6 MO-64 YRS 2021-09-18 00:00:00 Completed [facility] Influenza Virus Vaccine Quad IM, Preserv and ABX Free 6 MO-64 YRS 2021-09-18 00:00:00 Completed [facility] Influenza Virus Vaccine Quad IM, Preserv and ABX Free 6 MO-64 YRS 2021-09-18 00:00:00 Completed [facility] Influenza Virus Vaccine Quad IM, Preserv and ABX Free 6 MO-64 YRS 2021-09-18 00:00:00 Completed [facility] Influenza Virus Vaccine Quad IM, Preserv and ABX Free 6 MO-64 YRS 2021-09-18 00:00:00 Completed [facility] Influenza Virus Vaccine Quad IM, Preserv and ABX Free 6 MO-64 YRS 2021-09-18 00:00:00 Completed [facility] Influenza Virus Vaccine Quad IM, Preserv and ABX Free 6 MO-64 YRS 2021-09-18 00:00:00 Completed [facility] Influenza Virus Vaccine Quad IM, Preserv and ABX Free 6 MO-64 YRS 2021-09-18 00:00:00 Completed [facility] Influenza Virus Vaccine Quad IM, Preserv and ABX Free 6 MO-64 YRS 2021-09-18 00:00:00 Completed [facility] Influenza Virus Vaccine Quad IM, Preserv and ABX Free 6 MO-64 YRS 2021-09-18 00:00:00 Completed [facility] Influenza Virus Vaccine Quad IM, Preserv and ABX Free 6 MO-64 YRS 2021-09-18 00:00:00 Completed [facility] Influenza Virus Vaccine Quad IM, Preserv and ABX Free 6 MO-64 YRS 2021-09-18 00:00:00 Completed [facility] Influenza Virus Vaccine Quad IM, Preserv and ABX Free 6 MO-64 YRS 2021-09-18 00:00:00 Completed [facility] Influenza Virus Vaccine Quad IM, Preserv and ABX Free 6 MO-64 YRS (FLUCELVAX) 2021-09-18 00:00:00 Completed [facility] Influenza Virus Vaccine Quad IM, Preserv and ABX Free 6 MO-64 YRS 2021-09-18 00:00:00 Completed [facility] Influenza Virus Vaccine Quad IM, Preserv and ABX Free 6 MO-64 YRS 2021-09-18 00:00:00 Completed [facility] Influenza Virus Vaccine Quad IM, Preserv and ABX Free 6 MO-64 YRS 2021-09-18 00:00:00 Completed [facility] Influenza Virus Vaccine Quad IM, Preserv and ABX Free 6 MO-64 YRS 2021-09-18 00:00:00 Completed [facility] Influenza Virus Vaccine Quad IM, Preserv and ABX Free 6 MO-64 YRS 2021-09-18 00:00:00 Completed [facility] Influenza Virus Vaccine Quad IM, Preserv and ABX Free 6 MO-64 YRS 2021-09-18 00:00:00 Completed [facility] Influenza Virus Vaccine Quad IM, Preserv and ABX Free 6 MO-64 YRS 2021-09-18 00:00:00 Completed [facility] Influenza Virus Vaccine Quad IM, Preserv and ABX Free 6 MO-64 YRS 2021-09-18 00:00:00 Completed [facility] Influenza Virus Vaccine Quad IM, Preserv and ABX Free 6 MO-64 YRS 2021-09-18 00:00:00 Completed [facility] Influenza Virus Vaccine Quad IM, Preserv and ABX Free 6 MO-64 YRS 2021-09-18 00:00:00 Completed [facility] Influenza Virus Vaccine Quad IM, Preserv and ABX Free 6 MO-64 YRS 2021-09-18 00:00:00 Completed [facility] Influenza Virus Vaccine Quad IM, Preserv and ABX Free 6 MO-64 YRS 2021-09-18 00:00:00 Completed [facility] Influenza Virus Vaccine Quad IM, Preserv and ABX Free 6 MO-64 YRS 2021-09-18 00:00:00 Completed [facility] Influenza Virus Vaccine Quad .5 mL IM 6+ MO 2020-06-01 00:00:00 Completed [facility] Influenza Virus Vaccine Quad .5 mL IM 6+ MO 2020-06-01 00:00:00 Completed [facility] Influenza Virus Vaccine Quad .5 mL IM 6+ MO 2020-06-01 00:00:00 Completed [facility] Influenza Virus Vaccine Quad .5 mL IM 6+ MO 2020-06-01 00:00:00 Completed [facility] Influenza Virus Vaccine Quad .5 mL IM 6+ MO 2020-06-01 00:00:00 Completed [facility] Influenza Virus Vaccine Quad .5 mL IM 6+ MO 2020-06-01 00:00:00 Completed [facility] Influenza Virus Vaccine Quad .5 mL IM 6+ MO 2020-06-01 00:00:00 Completed [facility] Influenza Virus Vaccine Quad .5 mL IM 6+ MO 2020-06-01 00:00:00 Completed [facility] Influenza Virus Vaccine Quad .5 mL IM 6+ MO 2020-06-01 00:00:00 Completed [facility] Influenza Virus Vaccine Quad .5 mL IM 6+ MO 2020-06-01 00:00:00 Completed [facility] Influenza Virus Vaccine Quad .5 mL IM 6+ MO 2020-06-01 00:00:00 Completed [facility] Influenza Virus Vaccine Quad .5 mL IM 6+ MO 2020-06-01 00:00:00 Completed [facility] Influenza Virus Vaccine Quad .5 mL IM 6+ MO 2020-06-01 00:00:00 Completed [facility] Influenza Virus Vaccine Quad .5 mL IM 6+ MO (FLUZONE/FLULAVAL/F LUARIX) 2020-06-01 00:00:00 Completed [facility] Influenza Virus Vaccine Quad .5 mL IM 6+ MO 2020-06-01 00:00:00 Completed [facility] Influenza Virus Vaccine Quad .5 mL IM 6+ MO 2020-06-01 00:00:00 Completed [facility] Influenza Virus Vaccine Quad .5 mL IM 6+ MO 2020-06-01 00:00:00 Completed [facility] Influenza Virus Vaccine Quad .5 mL IM 6+ MO 2020-06-01 00:00:00 Completed [facility] Influenza Virus Vaccine Quad .5 mL IM 6+ MO 2020-06-01 00:00:00 Completed [facility] Influenza Virus Vaccine Quad .5 mL IM 6+ MO 2020-06-01 00:00:00 Completed [facility] Influenza Virus Vaccine Quad .5 mL IM 6+ MO 2020-06-01 00:00:00 Completed [facility] Influenza Virus Vaccine Quad .5 mL IM 6+ MO 2020-06-01 00:00:00 Completed [facility] Influenza Virus Vaccine Quad .5 mL IM 6+ MO 2020-06-01 00:00:00 Completed [facility] Influenza Virus Vaccine Quad .5 mL IM 6+ MO 2020-06-01 00:00:00 Completed [facility] Influenza Virus Vaccine Quad .5 mL IM 6+ MO 2020-06-01 00:00:00 Completed [facility] Influenza Virus Vaccine Quad .5 mL IM 6+ MO 2020-06-01 00:00:00 Completed [facility] Influenza Virus Vaccine Quad .5 mL IM 6+ MO 2020-06-01 00:00:00 Completed [facility] TDAP 2012-07-01 00:00:00 Completed [facility] TDAP 2012-07-01 00:00:00 Completed [facility] TDAP 2012-07-01 00:00:00 Completed [facility] TDAP 2012-07-01 00:00:00 Completed [facility] TDAP 2012-07-01 00:00:00 Completed [facility] TDAP 2012-07-01 00:00:00 Completed [facility] TDAP 2012-07-01 00:00:00 Completed [facility] TDAP 2012-07-01 00:00:00 Completed [facility] TDAP 2012-07-01 00:00:00 Completed [facility] TDAP 2012-07-01 00:00:00 Completed [facility] TDAP 2012-07-01 00:00:00 Completed [facility] TDAP 2012-07-01 00:00:00 Completed [facility] TDAP 2012-07-01 00:00:00 Completed [facility] TDAP 2012-07-01 00:00:00 Completed TDAP 2012-07-01 00:00:00 Completed [facility] TDAP 2012-07-01 00:00:00 Completed [facility] TDAP 2012-07-01 00:00:00 Completed [facility] TDAP 2012-07-01 00:00:00 Completed [facility] TDAP 2012-07-01 00:00:00 Completed [facility] TDAP 2012-07-01 00:00:00 Completed [facility] TDAP 2012-07-01 00:00:00 Completed [facility] TDAP 2012-07-01 00:00:00 Completed [facility] TDAP 2012-07-01 00:00:00 Completed [facility] TDAP 2012-07-01 00:00:00 Completed [facility] TDAP 2012-07-01 00:00:00 Completed [facility] TDAP 2012-07-01 00:00:00 Completed [facility] TDAP 2012-07-01 00:00:00 Completed [facility] Influenza Virus Vaccine Quad .5 mL IM 6+ MO (FLUZONE/FLULAVAL/F LUARIX) Unknown Completed [facility] TDAP Unknown Completed [facility] Influenza Virus Vaccine Quad IM, Preserv and ABX Free 6 MO-64 YRS (FLUCELVAX) Unknown Completed [facility] Influenza Virus Vaccine Quad .5 mL IM 6+ MO (FLUZONE/FLULAVAL/F LUARIX) Unknown Completed [facility] TDAP Unknown Completed [facility] Influenza Virus Vaccine Quad .5 mL IM 6+ MO (FLUZONE/FLULAVAL/F LUARIX) Unknown Completed [facility] TDAP Unknown Completed [facility] Influenza Virus Vaccine Quad IM, Preserv and ABX Free 6 MO-64 YRS (FLUCELVAX) Unknown Completed [facility] Influenza Virus Vaccine Quad .5 mL IM 6+ MO (FLUZONE/FLULAVAL/F LUARIX) Unknown Completed [facility] TDAP Unknown Completed [facility] Influenza Virus Vaccine Quad IM, Preserv and ABX Free 6 MO-64 YRS (FLUCELVAX) Unknown Completed [facility] Influenza Virus Vaccine Quad .5 mL IM 6+ MO (FLUZONE/FLULAVAL/F LUARIX) Unknown Completed [facility] TDAP Unknown Completed [facility] Influenza Virus Vaccine Quad IM, Preserv and ABX Free 6 MO-64 YRS (FLUCELVAX) Unknown Completed [facility] influenza virus vaccine, inactivated Unknown Completed [facility] influenza virus vaccine, inactivated Unknown Com[facility] Vital Signs Vital Name Observation Time Observation Value Comments S ource height 2023-03-13 08:20:00 67 [in_i] Commo n [facility] weight 2023-03-13 08:20:00 213.4 [lb_av] Co mmon [facility] temperature 2023-03-13 08:20:00 97.2 [degF] Com mon [facility] bmi 2023-03-13 08:20:00 33.42 kg/m2 Comm on [facility] oximetry 2023-03-13 08:20:00 96 % Commo n [facility] respiratory rate 2023-03-13 08:20:00 16 /min Common [facility] blood pressure systolic 2023-03-13 08:20:00 126 mm[Hg] [facility] blood pressure diastolic 2023-03-13 08:20:00 84 mm[Hg] [facility] height 2023-02-07 15:20:00 67 [in_i] Commo n [facility] weight 2023-02-07 15:20:00 216.4 [lb_av] Co mmon [facility] temperature 2023-02-07 15:20:00 98.1 [degF] Com mon [facility] bmi 2023-02-07 15:20:00 33.89 kg/m2 Comm on [facility] oximetry 2023-02-07 15:20:00 98 % Commo n [facility] respiratory rate 2023-02-07 15:20:00 16 /min Common [facility] blood pressure systolic 2023-02-07 15:20:00 137 mm[Hg] [facility] blood pressure diastolic 2023-02-07 15:20:00 74 mm[Hg] [facility] Systolic blood pressure 2023-01-30 16:30:00 134 mm[Hg] [facility] Diastolic blood pressure 2023-01-30 16:30:00 84 mm[Hg] [facility] Heart rate 2023-01-30 16:30:00 77 /min [facility] Respiratory rate 2023-01-30 16:30:00 16 /min [facility] Oxygen saturation in Arterial blood by Pulse oximetry 2023-01-30 16:30:00 97 /min [facility] Body temperature 2023-01-30 12:34:00 36.78 Serene [facility] Body weight 2023-01-30 12:34:00 98.884 kg [facility] BMI 2023-01-30 12:34:00 35.19 kg/m2 [facility] height 2023-01-24 10:40:00 67 [in_i] Commo n [facility] weight 2023-01-24 10:40:00 222.6 [lb_av] Co mmon [facility] temperature 2023-01-24 10:40:00 97.3 [degF] Com mon [facility] bmi 2023-01-24 10:40:00 34.86 kg/m2 Comm on [facility] oximetry 2023-01-24 10:40:00 95 % Commo n [facility] respiratory rate 2023-01-24 10:40:00 16 /min Common [facility] blood pressure systolic 2023-01-24 10:40:00 120 mm[Hg] Common [facility] blood pressure diastolic 2023-01-24 10:40:00 84 mm[Hg] Common [facility] Heart rate 2023-01-21 17:55:00 87 /min [facility] Respiratory rate 2023-01-21 17:55:00 17 /min [facility] Oxygen saturation in Arterial blood by Pulse oximetry 2023-01-21 17:55:00 95 /min [facility] Systolic blood pressure 2023-01-21 17:50:00 119 mm[Hg] [facility] Diastolic blood pressure 2023-01-21 17:50:00 75 mm[Hg] [facility] Body temperature 2023-01-21 17:16:00 36.22 Serene [facility] Body height 2023-01-21 15:46:00 167.6 cm [facility] Body weight 2023-01-21 15:46:00 98.884 kg [facility] BMI 2023-01-21 15:46:00 35.19 kg/m2 [facility] Systolic blood pressure 2023-01-21 17:45:00 116 mm[Hg] [facility] Diastolic blood pressure 2023-01-21 17:45:00 72 mm[Hg] [facility] Heart rate 2023-01-21 17:45:00 87 /min [facility] Respiratory rate 2023-01-21 17:45:00 18 /min [facility] Oxygen saturation in Arterial blood by Pulse oximetry 2023-01-21 17:45:00 94 /min [facility] Body temperature 2023-01-21 17:16:00 36.22 Serene [facility] Body height 2023-01-21 15:46:00 167.6 cm [facility] Body weight 2023-01-21 15:46:00 98.884 kg [facility] BMI 2023-01-21 15:46:00 35.19 kg/m2 [facility] Systolic blood pressure 2022-12-19 18:35:00 119 mm[Hg] [facility] Diastolic blood pressure 2022-12-19 18:35:00 75 mm[Hg] [facility] Heart rate 2022-12-19 18:35:00 76 /min [facility] Respiratory rate 2022-12-19 18:35:00 12 /min [facility] Body height 2022-12-19 18:35:00 167.6 cm [facility] Body weight 2022-12-19 18:35:00 101.606 kg [facility] BMI 2022-12-19 18:35:00 36.15 kg/m2 [facility] Oxygen saturation in Arterial blood by Pulse oximetry 2022-12-19 18:35:00 96 /min [facility] Body height 2022-12-06 19:30:00 167.6 cm [facility] Systolic blood pressure 2022-08-29 21:47:00 130 mm[Hg] [facility] Diastolic blood pressure 2022-08-29 21:47:00 92 mm[Hg] [facility] Heart rate 2022-08-29 21:47:00 89 /min [facility] Body temperature 2022-08-29 21:47:00 36.67 Serene [facility] Respiratory rate 2022-08-29 21:47:00 16 /min [facility] Body height 2022-08-29 21:47:00 167.6 cm [facility] Body weight 2022-08-29 21:47:00 112.764 kg [facility] BMI 2022-08-29 21:47:00 40.13 kg/m2 [facility] height 2022-07-25 10:20:00 67 [in_i] Commo n [facility] weight 2022-07-25 10:20:00 257.2 [lb_av] Co mmon [facility] temperature 2022-07-25 10:20:00 97.4 [degF] Com mon [facility] bmi 2022-07-25 10:20:00 40.28 kg/m2 Comm on [facility] oximetry 2022-07-25 10:20:00 97 % Commo n [facility] respiratory rate 2022-07-25 10:20:00 17 /min Common [facility] blood pressure systolic 2022-07-25 10:20:00 120 mm[Hg] Common [facility] blood pressure diastolic 2022-07-25 10:20:00 68 mm[Hg] [facility] Systolic blood pressure 2022-06-26 15:07:00 113 mm[Hg] [facility] Diastolic blood pressure 2022-06-26 15:07:00 74 mm[Hg] [facility] Heart rate 2022-06-26 15:07:00 74 /min [facility] Body height 2022-06-26 15:07:00 167.6 cm [facility] Body weight 2022-06-26 15:07:00 122.018 kg [facility] BMI 2022-06-26 15:07:00 43.42 kg/m2 [facility] Oxygen saturation in Arterial blood by Pulse oximetry 2022-06-26 15:07:00 100 /min [facility] Systolic blood pressure 2022-06-18 19:45:00 112 mm[Hg] [facility] Diastolic blood pressure 2022-06-18 19:45:00 73 mm[Hg] [facility] Heart rate 2022-06-18 19:45:00 93 /min [facility] Body temperature 2022-06-18 19:45:00 37.28 Serene [facility] Respiratory rate 2022-06-18 19:45:00 18 /min [facility] Body height 2022-06-18 19:45:00 167.6 cm [facility] Body weight 2022-06-18 19:45:00 122.018 kg [facility] BMI 2022-06-18 19:45:00 43.42 kg/m2 [facility] Oxygen saturation in Arterial blood by Pulse oximetry 2022-06-18 19:45:00 96 /min [facility] Systolic blood pressure 2022-05-29 21:29:00 123 mm[Hg] [facility] Diastolic blood pressure 2022-05-29 21:29:00 80 mm[Hg] [facility] Heart rate 2022-05-29 21:29:00 73 /min [facility] Body temperature 2022-05-29 21:29:00 36.89 Serene [facility] Body height 2022-05-29 21:29:00 167.6 cm [facility] Body weight 2022-05-29 21:29:00 122.925 kg [facility] BMI 2022-05-29 21:29:00 43.74 kg/m2 [facility] Oxygen saturation in Arterial blood by Pulse oximetry 2022-05-29 21:29:00 98 /min [facility] height 2022-05-17 08:40:00 67 [in_i] Commo n [facility] weight 2022-05-17 08:40:00 275.6 [lb_av] Co mmon [facility] temperature 2022-05-17 08:40:00 97.9 [degF] Com mon [facility] bmi 2022-05-17 08:40:00 43.16 kg/m2 Comm on [facility] oximetry 2022-05-17 08:40:00 96 % Commo n [facility] respiratory rate 2022-05-17 08:40:00 17 /min Common [facility] blood pressure systolic 2022-05-17 08:40:00 117 mm[Hg] Common [facility] blood pressure diastolic 2022-05-17 08:40:00 75 mm[Hg] [facility] Systolic blood pressure 2022-04-30 14:05:00 126 mm[Hg] [facility] Diastolic blood pressure 2022-04-30 14:05:00 84 mm[Hg] [facility] Heart rate 2022-04-30 14:05:00 63 /min [facility] Respiratory rate 2022-04-30 14:05:00 12 /min [facility] Body height 2022-04-30 14:05:00 167.6 cm [facility] Body weight 2022-04-30 14:05:00 126.554 kg [facility] BMI 2022-04-30 14:05:00 45.03 kg/m2 [facility] Oxygen saturation in Arterial blood by Pulse oximetry 2022-04-30 14:05:00 98 /min [facility] Systolic blood pressure 2022-03-29 15:34:00 137 mm[Hg] [facility] Diastolic blood pressure 2022-03-29 15:34:00 91 mm[Hg] [facility] Heart rate 2022-03-29 15:31:00 68 /min [facility] Body height 2022-03-29 15:31:00 167.6 cm [facility] Body weight 2022-03-29 15:31:00 126.554 kg [facility] BMI 2022-03-29 15:31:00 45.03 kg/m2 [facility] Oxygen saturation in Arterial blood by Pulse oximetry 2022-03-29 15:31:00 96 /min [facility] height 2022-02-12 08:40:00 67 [in_i] Commo n [facility] weight 2022-02-12 08:40:00 280.8 [lb_av] Co mmon [facility] temperature 2022-02-12 08:40:00 97.1 [degF] Com mon [facility] bmi 2022-02-12 08:40:00 43.97 kg/m2 Comm on [facility] oximetry 2022-02-12 08:40:00 99 % Commo n [facility] respiratory rate 2022-02-12 08:40:00 18 /min Common [facility] blood pressure systolic 2022-02-12 08:40:00 110 mm[Hg] Common [facility] blood pressure diastolic 2022-02-12 08:40:00 72 mm[Hg] Common [facility] blood pressure diastolic 2021-11-13 15:00:00 84 mm[Hg] [facility] height 2021-11-13 15:00:00 67 [in_i] Commo n [facility] weight 2021-11-13 15:00:00 280.8 [lb_av] Co mmon [facility] temperature 2021-11-13 15:00:00 97.3 [degF] Com mon [facility] bmi 2021-11-13 15:00:00 43.97 kg/m2 Comm on [facility] oximetry 2021-11-13 15:00:00 97 % Commo n [facility] respiratory rate 2021-11-13 15:00:00 18 /min [facility] blood pressure systolic 2021-11-13 15:00:00 137 mm[Hg] [facility] Systolic blood pressure 2021-10-09 15:52:00 122 mm[Hg] [place] [facility] Diastolic blood pressure 2021-10-09 15:52:00 86 mm[Hg] [facility] Heart rate 2021-10-09 15:52:00 79 /min [facility] Body height 2021-10-09 15:52:00 167.6 cm [facility] Body weight 2021-10-09 15:52:00 126.554 kg [facility] BMI 2021-10-09 15:52:00 45.03 kg/m2 [facility] Oxygen saturation in Arterial blood by Pulse oximetry 2021-10-09 15:52:00 98 /min [facility] height 2021-08-16 10:20:00 67 [in_i] Commo n [facility] weight 2021-08-16 10:20:00 280 [lb_av] Comm on [facility] temperature 2021-08-16 10:20:00 97.5 [degF] Com mon [facility] bmi 2021-08-16 10:20:00 43.85 kg/m2 Comm on [facility] oximetry 2021-08-16 10:20:00 98 % Commo n [facility] respiratory rate 2021-08-16 10:20:00 18 /min [facility] blood pressure systolic 2021-08-16 10:20:00 126 mm[Hg] [facility] blood pressure diastolic 2021-08-16 10:20:00 78 mm[Hg] [facility] Systolic (mm Hg) 2021-05-31 19:56:00 [facility] Diastolic (mm Hg) 2021-05-31 19:56:00 [facility] Heart Rate 2021-05-31 19:56:00 [facility]itory Rate 2021-05-31 19:56:00 [facility] Height 2021-05-31 19:56:00 165.1 cm [facility] Weight 2021-05-31 19:56:00 [facility] BMI Calculated 2021-05-31 19:56:00 [facility] Systolic (mm Hg) 2021-02-07 14:52:00 [facility] Diastolic (mm Hg) 2021-02-07 14:52:00 [facility] Heart Rate 2021-02-07 14:52:00 [facility] Respitory Rate 2021-02-07 14:52:00 [facility] Height 2021-02-07 14:52:00 165.1 cm [facility] Weight 2021-02-07 14:52:00 [facility] BMI Calculated 2021-02-07 14:52:00 [facility] Systolic (mm Hg) 2020-11-01 17:00:00 [facility] Diastolic (mm Hg) 2020-11-01 17:00:00 [facility] Heart Rate 2020-11-01 17:00:00 [facility] Respitory Rate 2020-11-01 17:00:00 [facility] Weight 2020-11-01 17:00:00 [facility] Systolic (mm Hg) 2020-09-08 17:43:00 [facility] Diastolic (mm Hg) 2020-09-08 17:43:00 [facility] Heart Rate 2020-09-08 17:43:00 [facility] Respitory Rate 2020-09-08 17:43:00 [facility] Systolic (mm Hg) 2020-08-22 20:11:00 [facility] Diastolic (mm Hg) 2020-08-22 20:11:00 [facility] Heart Rate 2020-08-22 20:11:00 [facility] Respitory Rate 2020-08-22 20:11:00 [facility] Height 2020-08-22 20:11:00 165.1 cm [facility] Weight 2020-08-22 20:11:00 [facility] BMI Calculated 2020-08-22 20:11:00 [facility] Systolic (mm Hg) 2020-05-13 15:19:00 [facility] Diastolic (mm Hg) 2020-05-13 15:19:00 [facility] Heart Rate 2020-05-13 15:19:00 [facility] Respitory Rate 2020-05-13 15:19:00 [facility] Height 2020-05-13 15:19:00 165.1 cm [facility] Weight 2020-05-13 15:19:00 [facility] BMI Calculated 2020-05-13 15:19:00 [facility] Systolic (mm Hg) 2020-04-08 13:17:00 [facility] Diastolic (mm Hg) 2020-04-08 13:17:00 [facility] Heart Rate 2020-04-08 13:17:00 [facility] Respitory Rate 2020-04-08 13:17:00 [facility] Height 2020-04-08 13:17:00 167.64 cm [facility] Weight 2020-04-08 13:17:00 [facility] BMI Calculated 2020-04-08 13:17:00 [facility] Systolic (mm Hg) 2020-03-25 15:31:00 [facility] Diastolic (mm Hg) 2020-03-25 15:31:00 [facility] Heart Rate 2020-03-25 15:31:00 [facility] Respitory Rate 2020-03-25 15:31:00 [facility] Height 2020-03-25 15:31:00 167.64 cm [facility] Weight 2020-03-25 15:31:00 [facility] BMI Calculated 2020-03-25 15:31:00 [facility] Weight 2011-06-28 18:02:00 [facility] Height 2011-06-28 18:02:00 167.64 cm [facility] Height 2011-06-26 21:51:00 170.18 cm [facility] Weight 2011-06-26 21:51:00 [facility] Procedures Procedure Date / Time Performed Performing Clinician Source CT ABDOMEN PELVIS W CONTRAST 2023-01-30 15:43:38 Baljinder Coleman [facility] URINALYSIS 2023-01-30 15:33:00 Baljinder Coleman [facility] POCT TEST 2023-01-30 15:33:00 Jovanna Coleman [facility] COMP. METABOLIC PANEL (78026) 2023-01-30 12:48:00 Baljinder Coleman [facility] CBC WITH DIFF 2023-01-30 12:48:00 Baljinder Coleman [facility] CONSENT/REFUSAL FOR DIAGNOSIS AND TREATMENT 2023-01-30 12:29:18 Doctor Unassigned, [place] [facility] FL TIME OR (NON-REPORTABLE) 2023-01-21 17:14:00 Anna Don [facility] FL TIME OR (NON-REPORTABLE) 2023-01-21 17:14:00 Anna Don [facility] CERVICAL EPIDURAL STEROID INJECTION 2023-01-21 16:54:00 Zayda Hudson [facility] POCT GLUCOSE (AUTOMATED) 2023-01-21 15:55:00 Zayda Hudson [facility] POCT GLUCOSE (AUTOMATED) 2023-01-21 15:55:00 Zayda Hudson [facility] POCT TEST 2023-01-21 15:35:00 Eleni Aguayo [facility] POCT TEST 2023-01-21 15:35:00 Eleni Aguayo [facility] CONSENT/REFUSAL FOR DIAGNOSIS AND TREATMENT 2023-01-21 15:26:24 Doctor Unassigned, [place] [facility] CONSENT/REFUSAL FOR DIAGNOSIS AND TREATMENT 2023-01-21 15:26:24 Doctor Unassigned, [place] [facility] ASSIGNMENT OF BENEFITS 2023-01-21 15:25:38 Docto r Unassigned, [place] [facility] ASSIGNMENT OF BENEFITS 2023-01-21 15:25:38 Docto r Unassigned, [place] [facility] DAY SURGERY - [place] 2023-01-21 05:01:00 Doctor Unassigned, [place] [facility] DISCLOSURE AND CONSENT, MEDICAL AND SURGICAL PROCEDURES 2022-12-19 05:01:00 Doctor Unassigned, [place] [facility] DISCLOSURE AND CONSENT, MEDICAL AND SURGICAL PROCEDURES 2022-12-19 05:01:00 Doctor Unassigned, [place] [facility] URINE CULTURE 2022-08-29 22:24:00 [facility] ASSIGNMENT OF BENEFITS 2022-08-29 21:00:08 Docto r Unassigned, [place] [facility] POCT URINALYSIS W/O SPECIFIC GRAVITY 2022-08-29 00:00:00 Eliza Guzman [facility] DISCLOSURE AND CONSENT, MEDICAL AND SURGICAL PROCEDURES 2022-06-26 06:01:00 Doctor Unassigned, [place] [facility] SCANNED LAB RESULTS 2022-06-18 06:01:00 Doctor Alphonso [email or web address], [place] [facility] ALLERGY PERCUTANEOUS SKIN TEST-AEROALLERGENS 2022-06-18 00:00:00 [facility] [place] [facility] (NON-REPORTABLE) 2022-05-29 22:12:00 Zayda Hudson [facility] POCT GLUCOSE (AUTOMATED) 2022-05-29 21:16:00 Zayda Hudson [facility] POCT TEST 2022-05-29 21:05:00 Dayana Hudson [facility] MR CERVICAL SPINE WO CONTRAST 2022-04-17 15:45:00 Chanelle Tapia [facility] EXTERNAL PROVIDER RECORDS 2021-10-21 05:01:00 Doctor Unassigned, [place] [facility] DISCLOSURE AND CONSENT, MEDICAL AND SURGICAL PROCEDURES 2021-10-09 05:01:00 Doctor Unassigned, [place] [facility] SLEEP STUDY DATA REPORT 2021-10-06 05:01:00 Doct or Unassigned, [place] [facility] Encounters Start Date/Time End Date/Time Encounter Type Admission Type Attending [facility] Facility Care Department Encounter ID Source 2023-04-23 08:03:00 Outpatient MaryMargaret [facility] [id number] [facility] 2022-07-24 08:01:01 Outpatient Margaret Hernandez [facility] [id number] [facility] 2022-05-16 07:31:00 Outpatient MaryRejia [facility] [id number] [facility] 2022-03-29 08:58:05 Preadmit nullFlavo r [facility] [id number] Lee Ann Aggarwal 2022-02-08 11:12:02 Outpatient Margaret Hernandez [facility] [id number] [facility] 2021-11-10 07:45:00 Outpatient Margaret Hernandez [facility] [id number] [facility] 2021-08-16 10:23:03 Outpatient Margaret Hernandez [facility] [id number] [facility] 2024-12-14 16:04:57 2024-12-14 16:04:57 Outpatient [facility] 16 Donell Granado 2022-02-21 00:00:00 2024-10-22 21:35:16 Chelly Frederick [facility] 1..114 350.1.13.10 4.2.7.2.686 [id number] [facility] 2021-10-04 00:00:00 2024-08-15 02:49:17 Orders Only Sanjay England Andrea E [facility] 1.0.114 350.1.13.10 4.2.7.2.686 [id number] [facility] 2024-01-22 15:58:01 2024-01-22 15:58:01 Outpatient [facility] 24 Donell Granado 2023-10-31 00:00:00 2023-12-07 18:07:24 Patient Secure Msg Doctor Unassigned, [place] [facility] 1.0.114 350.1.13.10 4.2.7.2.686 [id number] [facility] 2023-10-02 00:00:00 2023-10-02 00:00:00 Case Management Haque, Carolyn MOCK 1.0.114 350.1.13.10 4.2.7.2.686 [id number] [facility] 2023-10-02 00:00:00 2023-10-02 00:00:00 Telephone Haque, Carolyn MOCK 1.0.114 350.1.13.10 4.2.7.2.686 [id number] [facility] 2023-03-13 00:00:00 2023-03-13 00:00:00 OFFICE VISIT ESTAB PT LEVEL 3 STLMLC STLMLC [id number] [facility] 2023-03-07 10:00:00 2023-03-07 10:00:00 Outpatient ELIZA ESPINOZA [facility] [id number] [facility] 2023-03-01 00:00:00 2023-03-01 00:00:00 (WEB) STLMLC STLMLC [id number] [facility] 2023-03-01 00:00:00 2023-03-01 00:00:00 (TEL) STLMLC STLMLC [id number] [facility] 2023-02-07 00:00:00 2023-02-07 00:00:00 OFFICE VISIT ESTAB PT LEVEL 3 STLMLC STLMLC [id number] [facility] 2023-02-06 00:00:00 2023-02-06 00:00:00 (TEL) STLMLC STLMLC [id number] [facility] 2023-02-06 00:00:00 2023-02-06 00:00:00 Zayda [facility]uced[facility] 1.2.840.114 350.1.13.10 4.2.7.2.686 [id number] [facility] 2023-01-31 00:00:00 2023-01-31 00:00:00 Outpatient ELIZA ESPINOZA [facility] [id number] [facility] 2023-01-30 07:35:00 2023-01-30 11:48:00 Emergency X BALJINDER COLEMAN [facility] ERT [id number] [facility] 2023-01-30 07:35:00 2023-01-30 11:48:00 Emergency Baljinder Coleman [facility] 1.2.840.114 350.1.13.10 4.2.7.2.686 [id number] [facility] 2023-01-24 00:00:00 2023-01-24 00:00:00 OFFICE VISIT ESTAB PT LEVEL 4 STLMLC STLMLC [id number] [facility] 2023-01-21 10:25:00 2023-01-21 13:09:00 Outpatient R ZAYDA HUDSON [facility] ANS [id number] [facility] 2023-01-21 10:25:00 2023-01-21 13:09:00 Hospital Encounter Zayda Hudson [facility] 1.2.840.114 350.1.13.10 4.2.7.2.686 [id number] [facility] 2023-01-21 11:55:00 2023-01-21 12:45:00 Surgery Zayda Hudson [facility] 1..840.114 350.1.13.10 4.2.7.2.686 [id number] [facility] 2022-12-19 14:15:00 2022-12-19 14:24:21 Outpatient R ZAYDA HUDSON [facility] [id number] [facility] 2022-12-19 14:15:00 2022-12-19 14:24:21 [facility] 1..840.114 350.1.13.10 4.2.7.2.686 [id number] [facility] 2022-12-13 00:00:00 2022-12-13 00:00:00 Outpatient ELIZA ESPINOZA [facility] [id number] [facility] 2022-12-06 14:30:00 2022-12-06 14:58:38 Outpatient MARYCRUZ MCKEON [facility] [id number] [facility] 2022-12-06 14:30:00 2022-12-06 14:58:38 Office Visit Shamir Qu[facility] 1..840.114 350.1.13.10 4.2.7.2.686 [id number] [facility] 2022-11-16 09:00:00 2022-11-16 09:00:00 Outpatient R ZAYDA HUDSON [facility] [id number] [facility] 2022-11-14 10:00:00 2022-11-14 10:00:00 Outpatient R ZAYDA HUDSON [facility] [id number] [facility] 2022-11-12 11:00:00 2022-11-12 11:00:00 Outpatient ZAYDA BURKS [facility] [id number] [facility] 2022-09-28 00:00:00 2022-09-28 00:00:00 Outpatient R ELIZA GUZMAN [facility] [id number] [facility] 2022-09-17 09:30:00 2022-09-17 09:30:00 Outpatient R ZAYDA HUDSON [facility] [id number] [facility] 2022-09-07 00:00:00 2022-09-07 00:00:00 (TEL) STLC [facility] [id number] [facility] 2022-09-04 00:00:00 2022-09-04 00:00:00 Case Management Eliza Guzman [facility] 1..840.114 350.1.13.10 4.2.7.2.686 [id number] [facility] 2022-08-29 15:00:00 2022-08-29 16:18:08 Outpatient ELIZA ESPINOZA [facility] [id number] [facility] 2022-08-29 15:00:00 2022-08-29 16:18:08 Office Visit Eliza Guzman [facility] 1..114 350.1.13.10 4.2.7.2.686 [id number] [facility] 2022-08-29 00:00:00 2022-08-29 00:00:00 Orders Only Doctor Unassigned, [place] [facility] 1.840.114 350.1.13.10 4.2.7.2.686 [id number] [facility] 2022-08-03 00:00:00 2022-08-03 00:00:00 (TEL) STLMLC STLMLC [id number] [facility] 2022-07-31 09:00:00 2022-07-31 09:00:00 Outpatient ELIZA ESPINOZA [facility] [id number] [facility] 2022-07-25 00:00:00 2022-07-25 00:00:00 OFFICE VISIT ESTAB PT LEVEL 4 STLMLC STLMLC [id number] [facility] 2022-06-26 09:00:00 2022-06-26 10:03:38 Office Visit Zayda Hudson [facility] 1..114 350.1.13.10 4.2.7.2.686 [id number] [facility] 2022-06-26 09:00:00 2022-06-26 10:03:38 Outpatient R ZAYDA HUDSON [facility] [id number] [facility] 2022-06-26 00:00:00 2022-06-26 00:00:00 Orders Only Doctor Unassigned, [place] [facility] 1.2.114 350.1.13.10 4.2.7.2.686 [id number] [facility] 2022-06-18 14:00:00 2022-06-18 15:21:27 Outpatient MARLEN RUIZ [facility] [id number] [facility] 2022-06-18 14:00:00 2022-06-18 15:21:27 Office Visit Marlen Cary [facility] 1..114 350.1.13.10 4.2.7.2.686 [id number] [facility] 2022-06-18 00:00:00 2022-06-18 00:00:00 Orders Only Doctor Unassigned, [place] [facility] 1.0.114 350.1.13.10 4.2.7.2.686 [id number] [facility] 2022-06-11 00:00:00 2022-06-11 00:00:00 (TEL) STLMLC STLMLC [id number] [facility] 2022-05-29 15:39:38 2022-05-29 23:59:00 Hospital Encounter Zayda Hudson [facility] 1..114 350.1.13.10 4.2.7.2.686 [id number] [facility] 2022-05-29 16:00:00 2022-05-29 16:30:00 Office Visit Zayda Hudson [facility] 1..114 350.1.13.10 4.2.7.2.686 [id number] [facility] 2022-05-29 16:00:00 2022-05-29 16:00:00 Outpatient R ZAYDA HUDSON [facility] [id number] [facility] 2022-05-28 00:00:00 2022-05-28 00:00:00 Telephone Zayda Hudson [facility] 1..114 350.1.13.10 4.2.7.2.686 [id number] [facility] 2022-05-22 00:00:00 2022-05-22 00:00:00 (TEL) STLMLC STLMLC [id number] [facility] 2022-05-17 00:00:00 2022-05-17 00:00:00 OFFICE VISIT EST PT LEVEL 3 STLMLC STLMLC [id number] [facility] 2022-05-17 00:00:00 2022-05-17 00:00:00 (TEL) STLMLC STLMLC [id number] [facility] 2022-05-10 00:00:00 2022-05-10 00:00:00 (TEL) STLMLC STLMLC [id number] [facility] 2022-04-30 09:15:00 2022-04-30 09:30:00 Office Visit Zayda Hudson [facility] 1.840.114 350.1.13.10 4.2.7.2.686 [id number] [facility] 2022-04-30 09:15:00 2022-04-30 09:15:00 Outpatient R ZAYDA HUDSON [facility] [id number] [facility] 2022 00:00:00 2022 00:00:00 Patient Secure Msg Doctor Unassigned, [place] [facility] 1.840.114 350.1.13.10 4.2.7.2.686 [id number] [facility] 2022-04-17 09:12:48 2022-04-17 23:59:00 Outpatient R ZAYDA HUDSON [facility] [id number] [facility] 2022-04-17 09:12:48 2022-04-17 23:59:00 Hospital Encounter Zayda Hudson [facility] 1.840.114 350.1.13.10 4.2.7.2.686 [id number] [facility] 2022-04-06 00:00:00 2022-04-06 00:00:00 Outpatient R BECCA ZAYDA [facility] [id number] [facility] 2022-03-29 09:45:00 2022-03-29 11:01:50 Outpatient R BECCAZAYDA [facility] [id number] [facility] 2022-03-29 09:45:00 2022-03-29 11:01:50 Office Visit Zayda Hudson [facility] [id number] [facility] 2022-03-21 15:15:00 2022-03-21 15:15:00 Outpatient R ZAYDA [facility] [facility] [id number] [facility] 2022-03-16 00:00:00 2022-03-16 00:00:00 [facility] 1.2.840.114 350.1.13.10 4.2.7.2.686 [id number] [facility] 2022-02-16 00:00:00 2022-02-16 00:00:00 (TEL) STLMLC STLMLC [id number] [facility] 2022-02-12 00:00:00 2022-02-12 00:00:00 OFFICE VISIT ESTAB PT LEVEL 4 STLMLC STLMLC [id number] [facility] 2022-01-26 00:00:00 2022-01-26 00:00:00 OFFICE VISIT EST PT LEVEL 3 STLMLC STLMLC [id number] [facility] 2022-01-26 00:00:00 2022-01-26 00:00:00 (TEL) STLMLC STLMLC [id number] [facility] 2021-11-22 00:00:2021-11-22 00:00:00 (TEL) STLC STLC [id number] [facility] 2021-11-17 10:15:00 2021-11-17 10:15:00 Outpatient ZAYDA BURKS [facility] [id number] [facility] 2021-11-13 00:00:00 2021-11-13 00:00:00 OFFICE VISIT ESTAB PT LEVEL 4 STLMLC [facility] [id number] [facility] 2021-10-30 10:15:00 2021-11-01 09:27:29 Outpatient DIEGO JAMES [facility] [id number] [facility] 2021-10-30 10:15:00 2021-11-01 09:27:29 Ancillary Visit Nidia Gifford Craig L [facility] 1..840.114 350.1.13.10 4.2.7.2.686 [id number] [facility] 2021-10-23 10:15:00 2021-10-23 11:00:00 Ancillary Visit Nidia Gifford Craig L [facility] 1..840.114 350.1.13.10 4.2.7.2.686 [id number] [facility] 2021-10-23 10:15:00 2021-10-23 10:15:00 Outpatient DIEGO JAMES [facility] [id number] [facility] 2021-10-21 00:00:00 2021-10-21 00:00:00 Orders Only Doctor Unassigned, [place] [facility] 1..840.114 350.1.13.10 4.2.7.2.686 [id number] [id number] [facility] 2021-10-09 11:00:00 2021-10-09 11:34:41 Outpatient CHELLY WILLETT [facility] [id number] [facility] 2021-10-09 11:00:00 2021-10-09 11:34:41 Office Visit Chelly Llamas [facility] 1.2.840.114 350.1.13.10 4.2.7.2.686 [id number] [facility] 2021-10-09 11:00:00 2021-10-09 11:00:00 Outpatient CHELLY WILLETT [facility] [id number] [facility] 2021-10-09 00:00:00 2021-10-09 00:00:00 Orders Only Doctor Unassigned, [place] [facility] 1.2840.114 350.1.13.10 4.2.7.2.686 [id number] [facility] 2021-10-06 19:30:00 2021-10-06 22:00:00 Contract Paralegal Visit 1, [facility] Sleep Lab Bed Zaynab Collado T [facility] 1.2.840.114 350.1.13.10 4.2.7.2.686 [id number] [facility] 2021-10-06 19:30:00 2021-10-06 19:30:00 Outpatient R CLAIR COLLADOL CLAIR COLLADOL [facility] [id number] [facility] 2021-10-06 19:30:00 2021-10-06 19:30:00 Outpatient R ALVAREZ COLLADOHIL SAI STRAHIL [facility] [id number] [facility] 2021-10-06 00:00:00 2021-10-06 00:00:00 Orders Only Doctor Unassigned, [place] [facility] 1.2.840.114 350.1.13.10 4.2.7.2.686 [id number] [id number] [facility] 2021-10-04 10:00:00 2021-10-04 10:15:00 Laboratory Only Only, Adc Test Zayda Rocha [facility] 1..840.114 350.1.13.10 4.2.7.2.686 [id number] [facility] 2021-10-04 10:00:00 2021-10-04 10:00:00 Outpatient ZAYDA DENISE [facility] [id number] [facility] 2021-10-04 00:00:00 2021-10-04 00:00:00 Orders Only Doctor Unassigned, [place] [facility] 1.840.114 350.1.13.10 4.2.7.2.686 [id number] [facility] 2021-09-18 11:40:00 2021-09-18 12:00:00 Imm/Inj Visit Nurse, Sancho Madsen [facility] 1..840.114 350.1.13.10 4.2.7.2.686 [id number] [facility] 2021-09-18 10:40:00 2021-09-18 11:34:13 Outpatient [facility] [id number] [facility] 2021-09-18 10:40:00 2021-09-18 11:34:13 [facility] 1..840.114 350.1.13.10 4.2.7.2.686 [id number] [facility] 2021-09-18 10:40:00 2021-09-18 10:40:00 Outpatient [facility] [id number] [facility] 2021-09-13 10:37:50 2021-09-13 23:59:00 Outpatient FEDE GALLEGO [facility] [id number] [facility] 2021-09-13 10:37:50 2021-09-13 23:59:00 Hospital Encounter Fede España [facility] 1.84.114 350.1.13.10 4.2.7.2.686 [id number] [facility] 2021-09-13 00:00:00 2021-09-13 00:00:00 Orders Only Doctor Unassigned, [place] [facility] 1.20.114 350.1.13.10 4.2.7.2.686 [id number] [facility] 2021-09-07 00:00:00 2021-09-07 00:00:00 (TEL) STLMLC STLMLC [id number] [facility] 2021-09-06 11:40:00 2021-09-06 12:00:00 Office Visit Zaynab Collado [facility] 1.840.114 350.1.13.10 4.2.7.2.686 [id number] [facility] 2021-09-06 11:40:00 2021-09-06 11:40:00 Outpatient R ZAYNAB COLLADO STRAHIL [facility] [id number] [facility] 2021-08-29 16:45:00 2021-08-29 16:45:00 Ambulatory Pre-Reg nullFlavo r [facility] [place] [id number] Lee Ann Aggarwal 2021-08-18 00:00:00 2021-08-18 00:00:00 Patient Secure Msg Doctor Unassigned, [place] [facility] 1.284.114 350.1.13.10 4.2.7.2.686 [id number] [facility] 2021-08-16 00:00:00 2021-08-16 00:00:00 OFFICE VISIT ESTAB PT LEVEL 4 STLMLC STLMLC [id number] [facility] 2021-08-14 13:00:00 2021-08-14 14:09:16 Outpatient Allyn [facility] [place], [facility] [id number] [facility] 2021-08-07 00:00:00 2021-08-07 00:00:00 Outpatient FEDE GALLEGO [facility] [id number] [facility] 2021-07-28 13:00:00 2021-07-28 14:19:02 Office Visit Fede España [facility] 1..840.114 350.1.13.10 4.2.7.2.686 [id number] [facility] 2021-07-28 13:00:00 2021-07-28 14:19:02 Outpatient R FEDE ESPAÑA [facility] [id number] [facility] 2021-07-28 13:00:00 2021-07-28 13:00:00 Outpatient R FEDE ESPAÑA [facility] [id number] [facility] 2021-07-28 00:00:00 2021-07-28 00:00:00 Orders Only Doctor Unassigned, [place] [facility] 1..840.114 350.1.13.10 4.2.7.2.686 [id number] [facility] 2021-05-31 19:45:00 2021-06-01 05:59:59 Outpatient nullFlavo r [facility] [place] [id number] Lee Ann Aggarwal 2021-05-10 16:15:00 2021-05-10 16:15:00 Ambulatory Pre-Reg nullFlavo r [facility] [place] [id number] Lee Ann Aggarwal 2021-02-07 14:45:00 2021-02-08 04:59:59 Outpatient nullFlavo r [facility] [place] [id number] Lee Ann Aggarwal 2020-11-01 16:45:00 2020-11-02 04:59:59 Outpatient nullFlavo r [facility] [place] [id number] Lee Ann Aggarwal 2020-10-21 17:00:00 2020-10-21 17:00:00 Outpatient MHIE MHIE [id number] Lee Ann Aggarwal 2020-09-27 15:00:00 2020-09-28 04:59:59 Outpatient nullFlavo r [facility] [place] [id number] Lee Ann Agagrwal 2020-09-15 00:00:00 2020-09-15 00:00:00 Patient Outreach [place] [facility] ..840.114 350.1.13.10 4.2.7.2.686 [id number] [facility] 2020-09-08 17:38:46 2020-09-09 17:38:46 Between Visit nullFlavo r [facility] [place] [id number] Lee Ann gray Jasen 2020-09-08 17:30:00 2020-09-09 05:59:59 Outpatient nullFlavo r [facility] [place] [id number] Lee Ann Allisonann 2020-08-22 19:45:00 2020-08-23 05:59:59 Outpatient nullFlavo r [facility] [place] [id number] Lee Ann Allisonann 2020-08-16 15:15:00 2020-08-16 15:15:00 Ambulatory Pre-Reg nullFlavo r [facility] [place] [id number] Lee Ann gray Jasen 2020-08-12 11:00:00 2020-08-12 11:00:00 Outpatient R ELIZA GUZMAN [facility] [id number] [facility] 2020-08-09 06:35:36 2020-08-09 23:59:00 Hospital Encounter Natalie Fuentes [facility] ..840.114 350.1.13.10 4.2.7.2.686 [id number] 2020-08-09 06:35:36 2020-08-09 23:59:00 Hospital Encounter Akinsipe, Natalie C [facility] 1.2840.114 350.1.13.10 4.2.7.2.686 [id number] [facility] 2020-08-09 00:00:00 2020-08-09 00:00:00 Outpatient R NATALIE FUENTES [facility] [id number] [facility] 2020-07-14 13:05:29 2020-07-14 14:20:37 Office Visit Adum, [facility] 1.2840.114 350.1.13.10 4.2.7.2.686 [id number] 2020-07-14 13:05:29 2020-07-14 14:20:37 Office Visit Ad, [facility] 1.2840.114 350.1.13.10 4.2.7.2.686 [id number] [facility] 2020-07-14 13:00:00 2020-07-14 13:00:00 Outpatient R ADAM [facility] [id number] [facility] 2020-07-14 00:00:00 2020-07-14 00:00:00 Orders Only Doctor Unassigned, [place] [facility] 1.2840.114 350.1.13.10 4.2.7.2.686 [id number] 2020-07-14 00:00:00 2020-07-14 00:00:00 Orders Only Doctor Unassigned, [place] [facility] 1.2840.114 350.1.13.10 4.2.7.2.686 [id number] [facility] 2020-07-05 06:38:41 2020-07-05 23:59:00 Hospital Encounter Natalie Fuentes [facility] 1.2.840.114 350.1.13.10 4.2.7.2.686 [id number] [facility] 2020-07-05 00:00:00 2020-07-05 00:00:00 Outpatient NATALIE ROSADO [facility] [id number] [facility] 2020-06-28 13:00:00 2020-06-28 13:00:00 Outpatient R ELIZA GUZMAN [facility] [id number] [facility] 2020-06-02 08:56:21 2020-06-02 10:12:36 Office Visit Eliza Guzman [facility] 1.840.114 350.1.13.10 4.2.7.2.686 [id number] [facility] 2020-06-02 09:00:00 2020-06-02 09:00:00 Outpatient R ELIZA GUZMAN [facility] [id number] [facility] 2020-06-01 08:45:11 2020-06-01 10:28:35 Office Visit Natalie Fuentes [facility] 1.840.114 350.1.13.10 4.2.7.2.686 [id number] [facility] 2020-06-01 08:45:00 2020-06-01 08:45:00 Outpatient NATALIE ROSADO [facility] [id number] [facility] 2020-06-01 00:00:00 2020-06-01 00:00:00 Orders Only Doctor Unassigned, [place] [facility] 1.840.114 350.1.13.10 4.2.7.2.686 [id number] [facility] 2020-05-13 15:15:00 2020-05-14 05:59:59 Outpatient nullFlavo r [facility] [place] [id number] Lee Ann Aggarwal 2020-04-08 13:15:00 2020-04-09 04:59:59 Outpatient nullFlavo r [facility] [place] [id number] Lee Ann Aggarwal 2020-03-25 15:15:00 2020-03-26 04:59:59 Outpatient nullFlavo r [facility] [place] [id number] Lee Ann Allisonann 2011-07-09 12:18:00 2011-07-09 12:18:00 Inpatient nullFlavo r [facility] [id number] Lee Ann gray Jasen 2011-06-28 11:20:00 2011-06-29 09:42:00 OU nullFlavo r [facility] [id number] Lee Ann gray Jasen 2011-06-26 15:30:00 2011-06-26 17:27:00 OU nullFlavo r [facility] [id number] Lee Ann gray Jasen Results Test Description Test Time Test Comments Results Result Co mments Source POCT [id number] 15:33:00* Test Item Value Reference Range Interpretation Comme nts POCT PREG (test code = 1605) Negative On board controls acceptable with C Line (test code = 3574) Yes POCT PREG LOT # (test code = 3575) [id number] POCT PREG TEST DATE ( test code = 3576) 06/12/24 Lab Interpretation (test cod e = 24671-1) Normal [facility] WITH [id number] 13:57:56* Test Item Value Reference Range Interpretation Comme nts WBC (test code = 6690-2) 13.29 See_Comment H [Automated messa ge] The system which generated this result transmitted reference range: 4.30 - 11.10 10*3/?L. The reference range was not used to interpret this result as normal/abnormal. RBC (test code = 789-8) 5.07 See_Comment [Automated messa ge] The system which generated this result transmitted reference range: 3.93 - 5.25 10*6/?L. The reference range was not used to interpret this result as normal/abnormal. HGB (test code = 718-7) 16.4 g/dL 11.6-15.0 H HCT (test code = 4544-3) 47.3 % 35.7-45.2 H MCV (test code = 787-2) 93.3 fL 80.6-95.5 MCH (test code = 785-6) 32.3 pg 25.9-32.8 MCHC (test code = 786-4) 34.7 g/dL 31.6-35.1 RDW-SD (test code = 59196-0) 42.5 fL 39.0-49.9 RDW-CV (test code = 788-0) 12.3 % 12.0-15.5 PLT (test code = 777-3) 444 See_Comment H [Automated messa ge] The system which generated this result transmitted reference range: 166 - 358 10*3/?L. The reference range was not used to interpret this result as normal/abnormal. MPV (test code = 27031-4) 9.3 fL 9.5-12.9 L NRBC/100 WBC (test code = 8021243660) 0.0 See_Comment [Automated [employer] ssage] The system which generated this result transmitted reference range: 0.0 - 10.0 /100 WBCs. The reference range was not used to interpret this result as normal/abnormal. NRBC x10^3 (test code = 7476681152) See_Comment [Automated messa ge] The system which generated this result transmitted reference range: 10*3/?L. The reference range was not used to interpret this result as normal/abnormal. GRAN MAT (NEUT) % (test code = 770-8) 56.3 % IMM GRAN % (test code = 9963485339) 0.50 % LYMPH % (test code = 736-9) 30.3 % MONO % (test code = 5905-5) 11.6 % EOS % (test code = 713-8) 0.5 % BASO % (test code = 706-2) 0.8 % GRAN MAT x10^3(ANC) (test code = 8550110848) 7.48 10*3/uL 1.88-7.09 H IMM GRAN x10^3 (test code = 9633935939) 0.06 10*3/uL 0.00-0.06 LYMPH x10^3 (test code = 731-0) 4.03 10*3/uL 1.32-3.29 H MONO x10^3 (test code = 742-7) 1.54 10*3/uL 0.33-0.92 H EOS x10^3 (test code = 711-2) 0.07 10*3/uL 0.03-0.39 BASO x10^3 (test code = 704-7) 0.11 10*3/uL 0.01-0.07 H ELLIPTO/OVAL (test code = 78114-6) 2+ See_Comment A [Automated [employer]] The system which generated this result transmitted reference range: (none). The reference range was not used to interpret this result as normal/abnormal. REACT LYMPHS (test code = 9386669462) Moderate TOXIC CHANGES (test code = 803-7) Present A GIANT PLATELETS (test code = 5908-9) Present See_Comment A [Automated [employer]] The system which generated this result transmitted reference range: (none). The reference range was not used to interpret this result as normal/abnormal. Lab Interpretation (test code = 15398-9) Abnormal [facility] (46197)2023-01-30 13:29:57* Test Item Value Reference Range Interpretation Comme nts NA (test code = 7773787979) 140 mmol/L 135-145 K (test code = 3490672706) 3.7 mmol/L 3.5-5.0 CL (test code = 3644349703) 98 mmol/L 98-108 CO2 TOTAL (test code = 2914075317) 26 mmol/L 23-31 AGAP (test code = 2560302096) 16 2-16 BUN (test code = 2044471126) 14 mg/dL 7-23 GLUCOSE (test code = 2709115528) 120 mg/dL 70-110 H CREATININE (test code = 2282016202) 0.83 mg/dL 0.50-1.04 TOTAL BILI (test code = 4944636662) 1.0 mg/dL 0.1-1.1 CALCIUM (test code = 3684253625) 10.2 mg/dL 8.6-10.6 T PROTEIN (test code = 5732462147) 8.2 g/dL 6.3-8.2 ALBUMIN (test code = 4545882788) 4.9 g/dL 3.5-5.0 ALK PHOS (test code = 7877032833) 37 U/L 34-122 ALTv (test code = 1742-6) 38 U/L 5-35 H AST(SGOT) (test code = 0201305497) 45 U/L 13-40 H eGFR (test code = 7619074091) 74.7 mL/min/1.73m2 SARABJIT (test code = SARABJIT) Association of Glomerular Filtration Rate (GFR) and Staging of Kidney Disease* + --+ --+ ------+| GFR (mL/min/1.73 m2) ?| With Kidney Damage ?| ?Without Kidney Damage+ --------+ --------+ +| ?>90 ?| ?Stage one ?| ? Normal ?+ ---+ ---+ -------+| ?60-89 ?| ?Stage two ?| ? Decreased GFR ? + --+ --+ ------+| ?30-59 ?| ?Stage three ?| ? Stage three ? + --+ --+ ------+| ?15-29 ?| ?Stage four ? | ? Stage four ?+ ---+ ---+ -------+| ?<15 (or dialysis) ? ?| ?Stage five ? | ? Stage five ?+ ---+ ---+ -------+ *Each stage assumes the associated GFR level has been in effect for at least three months. ?Stages 1 to 5, with or without kidney disease, indicate chronic kidney disease. Notes: Determination of stages one and two (with eGFR >59mL/min/1.73 m2) requires estimation of kidney damage for at least three months as defined by structural or functional abnormalities of the kidney, manifested by either:Pathological abnormalities or Markers of kidney damage (including abnormalities in the composition of the blood or urine or abnormalities in imaging tests). Lab Interpretation (test code = 86074-8) Abnormal [facility] [id number] 00:00:00* Test Item Value Reference Range Interpretation Comme [facility] A1C (test code = 4548-4) 5.1 POCT GLUCOSE (AUTOMATED)2023-01-21 15:56:34* Test Item Value Reference Range Interpretation Comme [facility] POCT GLU (test code = 0777694805) 97 mg/dL 70-110 Lab Interpretation (test cod e = 18814-5) Normal [facility] GLUCOSE (AUTOMATED)2023-01-21 15:56:34* Test Item Value Reference Range Interpretation Comme nts POCT GLU (test code = 4300631463) 97 mg/dL 70-110 Lab Interpretation (test cod e = 02087-4) Normal [facility] [id number] 15:38:00* Test Item Value Reference Range Interpretation Comme nts POCT PREG (test code = 1605) Negative On board controls acceptable with C Line (test code = 3574) Yes POCT PREG LOT # (test code = 3575) POCT PREG TEST DATE ( test code = 3576) Lab Interpretation (test cod e = 41107-3) Normal [facility] [id number] 15:38:00* Test Item Value Reference Range Interpretation Comme nts POCT PREG (test code = 1605) Negative On board controls acceptable with C Line (test code = 3574) Yes POCT PREG LOT # (test code = 3575) POCT PREG TEST DATE ( test code = 3576) Lab Interpretation (test cod e = 55854-9) Normal [facility] URINALYSIS W/O SPECIFIC [id number] 22:21:00* Test Item Value Reference Range Interpretation Comme nts POCT PH U (test code = 3254) 7 mg/dl 5-8 POCT U LEUK EST (test code = 3263) NEGATIVE Negative - Negative POCT U NIT (test code = 3262) NEGATIVE Negative - Negati ve POCT U PROT (test code = 3259) 30 Negative - Negat verenice POCT U GLU (test code = 3256) NEGATIVE Negative - Negati ve POCT U KETONE (test code = 3258) TRACE Negative - Neg ative POCT U BLD (test code = 3257) NEGATIVE Negative - Negati ve [facility] URINALYSIS W/O SPECIFIC [id number] 22:21:00* Test Item Value Reference Range Interpretation Comme nts POCT PH U (test code = 3254) 7 mg/dl 5-8 POCT U LEUK EST (test code = 3263) NEGATIVE Negative - Negative POCT U NIT (test code = 3262) NEGATIVE Negative - Negati ve POCT U PROT (test code = 3259) 30 Negative - Negat verenice POCT U GLU (test code = 3256) NEGATIVE Negative - Negati ve POCT U KETONE (test code = 3258) TRACE Negative - Neg ative POCT U BLD (test code = 3257) NEGATIVE Negative - Negati ve [facility] GLUCOSE (AUTOMATED)2022-05-29 21:28:17* Test Item Value Reference Range Interpretation Comme nts POCT GLU (test code = 1032861343) 111 mg/dL 70-110 H Lab Interpretation (test cod e = 83116-2) Abnormal [facility] GLUCOSE (AUTOMATED)2022-05-29 21:28:17* Test Item Value Reference Range Interpretation Comme nts POCT GLU (test code = 9555566679) 111 mg/dL 70-110 H Lab Interpretation (test cod e = 02873-6) Abnormal [facility] [id number] 21:08:00* Test Item Value Reference Range Interpretation Comme nts POCT PREG (test code = 1605) Negative On board controls acceptable with C Line (test code = 3574) Yes POCT PREG LOT # (test code = 3575) POCT PREG TEST DATE ( test code = 3576) [facility] [id number] 21:08:00* Test Item Value Reference Range Interpretation Comme nts POCT PREG (test code = 1605) Negative On board controls acceptable with C Line (test code = 3574) Yes POCT PREG LOT # (test code = 3575) POCT PREG TEST DATE ( test code = 3576) [facility] [id number] 00:00:00* Test Item Value Reference Range Interpretation Comme nts A1C (test code = 4548-4) 5.5 [id number] 21:00:00* Test Item Value Reference Range Interpretation Comme nts MCV (test code = MCV) 90.8 81.0-99.0 N MCHC (test code = MCHC) 34.0 32.0-36.0 N Hct (test code = Hct) 32.0 36.0-48.0 L Hgb (test code = Hgb) 10.9 12.0-16.0 L MPV (test code = MPV) 8.0 7.4-10.4 N MCH (test code = MCH) 30.8 pg 27.0-31.0 N Platelet (test code = Platelet) 246 133-450 N RDW (test code = RDW) 15.9 11.5-14.5 H WBC (test code = WBC) 9.0 3.7-10.4 N RBC (test code = RBC) 3.52 4.20-5.40 L Lymphocytes (test code = Lymphocytes) 20.6 20.0-40.0 N Eosinophils (test code = Eosinophils) 0.2 <=4.0 N Monocytes (test code = Monocytes) 6.8 2.0-12.0 N Segs (test code = Segs) 71.9 45.0-75.0 N Lymphocytes # (test code = Lymphocytes #) 1.8 1.0-5.5 N Segs-Bands # (test code = Se gs-Bands #) 6.5 1.5-8.1 N Basophils (test code = Basophils) 0.5 <=1.0 N Monocytes # (test code = Monocytes #) 0.6 <=0.8 N Basophils # (test code = Basophils #) 0.0 <=0.2 N Eosinophils # (test code = Eosinophils #) 0.0 <=0.5 [id number] 21:00:00* Test Item Value Reference Range Interpretation Comme nts RPR (test code = RPR) Non Reactive (06/01 15:00:00) N Hep Bs Ag (test code = Hep Bs Ag) Negative *NA*(06/28/2011 15:00:00) [facility] BANK [id number] 20:40:00* Test Item Value Reference Range Interpretation Comme nts Antibody Scrn (test code = Antibody Scrn) Negative (06/28/2011 14:40:00) N Rhig Reqd (test code = Rhig Reqd) See Note 1(06/28/2011 14:40:00) N ABO/Rh (test code = ABO/Rh) O POS [id number] 20:40:00* Test Item Value Reference Range Interpretation Comme nts Rubella IgG (test code = Rubella IgG) no gt HIV 1/2 Ab (LD) (test code = HIV 1/2 Ab (LD)) Negative *NA*(06/28/2011 14:40:00) [id number] 22:10:00* Test Item Value Reference Range Interpretation Comme nts Uric Acid (test code = Uric Acid) 4.3 2.5-7.0 N LDH (test code = LDH) 169 98-192 N AST (test code = AST) 16 <=37 N Alk Phos (test code = Alk Phos) 180 39-136 H Bili Total (test code = Bili Total) 0.2 0.2-1.3 N BUN (test code = BUN) 6 7-22 L Albumin Lvl (test code = Albumin Lvl) 2.4 3.5-5.0 L ALT (test code = ALT) 18 <=65 N Glucose Lvl (test code = Glucose Lvl) 91 Sodium Lvl (test code = Sodium Lvl) 142 135-145 N Creatinine Lvl (test code = Creatinine Lvl) 0.8 0.5-1.4 N Potassium Lvl (test code = P otassium Lvl) 4.3 3.5-5.1 N Chloride Lvl (test code = Chloride Lvl) 109 95-109 N CO2 (test code = CO2) 23 24-32 L Total Protein (test code = T otal Protein) 5.8 6.4-8.4 L Calcium Lvl (test code = Calcium Lvl) 8.3 8.5-10.5 L A/G Ratio (test code = A/G Ratio) 0.7 0.7-1.6 N Globulin (test code = Globulin) 3.4 2.0-4.0 N B/C Ratio (test code = B/C Ratio) 8 6-25 N AGAP (test code = AGAP) 14.3 10.0-20.0 N [id number] 22:10:00* Test Item Value Reference Range Interpretation Comme nts Fibrinogen Lvl (test code = Fibrinogen Lvl) 464 230-510 N PT (test code = PT) 12.0 s 12.0-14.7 N PTT (test code = PTT) 25.6 s 22.9-35.8 N INR (test code = INR) 0.88 0.85-1.17 N MPV (test code = MPV) 7.5 7.4-10.4 N MCV (test code = MCV) 90.5 81.0-99.0 N Platelet (test code = Platelet) 232 133-450 N MCH (test code = MCH) 31.1 pg 27.0-31.0 H RDW (test code = RDW) 16.2 11.5-14.5 H MCHC (test code = MCHC) 34.4 32.0-36.0 N Hct (test code = Hct) 32.2 36.0-48.0 L Hgb (test code = Hgb) 11.1 12.0-16.0 L WBC (test code = WBC) 6.7 3.7-10.4 N RBC (test code = RBC) 3.55 4.20-5.40 L Basophils (test code = Basophils) 0.6 <=1.0 N Segs-Bands # (test code = Se gs-Bands #) 4.4 1.5-8.1 N Eosinophils (test code = Eosinophils) 0.3 <=4.0 N Monocytes # (test code = Monocytes #) 0.6 <=0.8 N Lymphocytes # (test code = Lymphocytes #) 1.7 1.0-5.5 N Eosinophils # (test code = Eosinophils #) 0.0 <=0.5 N Basophils # (test code = Basophils #) 0.0 <=0.2 N Monocytes (test code = Monocytes) 8.5 2.0-12.0 N Lymphocytes (test code = Lymphocytes) 25.6 20.0-40.0 N Segs (test code = Segs) 65.0 45.0-75.0 N [id number] 22:10:00* Test Item Value Reference Range Interpretation Comme nts UA WBC (test code = UA WBC) 0-2 /HPF (06/26/2011 16:10:00) N UA Bacteria (test code = UA Bacteria) Few /HPF (06/26/2011 16:10:00) N UA RBC (test code = UA RBC) None Seen (06/26/2011 16:10:00) <=2 N UA Sq Epi (test code = UA Sq Epi) Occasional /LPF (06/26/2011 16:10:00) N UA Spec Grav (test code = UA Spec Grav) 1.010 1 N UA pH (test code = UA pH) 7.0 1 5.0-8.0 N UA Protein (test code = UA Protein) Negative mg/dL (06/26/2011 16:10:00) N UA Glucose (test code = UA Glucose) Negative mg/dL (06/26/2011 16:10:00) N UA Ketones (test code = UA Ketones) Negative mg/dL *NA*(06/26/2011 16:10:00) UA Bili (test code = UA Bili) Negative *NA*(06/26/2011 16:10:00) UA Urobilinogen (test code = UA Urobilinogen) 0.2 0.1-1.0 N UA Blood (test code = UA Blood) Negative (06/26/2011 16:10:00) N UA Nitrite (test code = UA Nitrite) Negative (06/26/2011 16:10:00) N UA Leuk Est (test code = UA Leuk Est) Negative (06/26/2011 16:10:00) N UA Color (test code = UA Color) Yellow *NA*(06/26/2011 16:10:00) UA Turbidity (test code = UA Turbidity) Clear (06/26/2011 16:10:00) N [facility] History and Physical Notes Date/Time Note Provider Source 2023-01-21 11:54:07 Formatting of this n ote is different from the original. Chronic Pain Service Procedure H&P CC: neck Pain Shelley Frank denies significant changes since last visit. The patient was re-examined in the holding area immediately prior to the procedure. There were no changes in the patient's history or physical exam since last seen in clinic. The risks, benefits, and treatment options were again discussed with the patient and the patient desires to proceed. The patient is likely to have improved pain management with the procedure. The H&P was reviewed with the patient prior to procedure, but filed at a later time. Labs: CBC BMP PT/INR No results found for: "WBC" No results found for: "NA" No results found for: "PT" No results found for: "RBC" No results found for: "K" No results found for: "PTINR" No results found for: "PLT" No results found for: "CA" No results found for: "HGB" No results found for: "CL" aPTT No results found for: "HCT" No results found for: "BUN" No results found for: "APTTPAT" No results found for: "CREAT" Imaging: Reviewed Plan - cervical reji - Discharge home, resume home medication - RTC in 2-6 weeks or as scheduled AN-PAIN MEDICINE ANESTHESIOLOGIST [facility] - Health Notes Date/Time Note Provider Source 2023-10-02 11:33:39 10/02/23 Health Maintenance team contacted patient to assist in completing Health Maintenance topics that are overdue. Shelley Frank [id number] Attempt Number: 1st Health Maintenance topics attempted to address: Health Maintenance Due Topic Date Due SARS-CoV-2 (COVID-19) Vaccine (1) Never done PNEUMOCOCCAL 0-64 YEARS COMBINED SERIES (1 of 2 - PCV) Never done HIV Screening Never done SDOH Financial Resource Strain Never done SDOH Food Insecurity Never done SDOH Transportation Needs Never done HEPATITIS C (HCV) SCREEN Never done DTaP,Tdap,and Td Vaccines (2 - Td or Tdap) 07/01/2022 Breast Cancer Screening (Mammogram) 09/13/2022 INFLUENZA VACCINE (1) 03/01/2023 Colorectal Cancer Screening Never done Call outcome: Attempted to contact patient to review overdue health maintenance. LVM with call back number and stated I sent a [employer] message that will give further details to the purpose of this call. Silva, [facility] [phone] 10/31/23 Completed Chart review/Care everywhere/Immtrac. Immtrac2 immunizations on file are current. Care Everywhere no new medical records obtained at this time for Overdue HM. Sent patient a message via [employer] of Overdue Health Maintenance. No future appointments at this time. Insurance on file is currently inactive. Health Maintenance team contacted patient to assist in completing Health Maintenance topics that are overdue. Shelley Frank [id number] Attempt Number: 2nd Health Maintenance topics addressed: Health Maintenance Due Topic Date Due SARS-CoV-2 (COVID-19) Vaccine (1) Never done PNEUMOCOCCAL 0-64 YEARS COMBINED SERIES (1 of 2 - PCV) Never done HIV Screening Never done SDOH Financial Resource Strain Never done SDOH Food Insecurity Never done SDOH Transportation Needs Never done HEPATITIS C (HCV) SCREEN Never done DTaP,Tdap,and Td Vaccines (2 - Td or Tdap) 07/01/2022 Breast Cancer Screening (Mammogram) 09/13/2022 INFLUENZA VACCINE (1) 03/01/2023 Colorectal Cancer Screening Never done Call outcome: Contacted patient to review overdue health maintenance. Patient stated she currently doesn't have insurance and is pending a disability review results. Notified patient I sent her a [employer] message with my contact information and if I can be of any further assistance to please contact me. Patient acknowledged and agreed. Silva, [facility] [phone] Carolyn Haque MA [facility] 2023-02-06 10:17:39 Formatting of this n ote might be different from the original. Medication refilled per protocol. Stacy Walker LVN [facility] 2023-01-30 11:46:26 Formatting of this n ote might be different from the original. Written/verbal d/c instructions, encouraged bland diet, erx to e[place] in [place], f/u pmd Carolyn Ashraf RN [facility] 2023-01-30 07:33:10 Formatting of this n ote might be different from the original. Patient to ED for vomiting that started last . She ran out of her zofran and has been vomiting more than normal. Josue Lobo RN [facility] - Health 2023-01-30 07:26:00 Formatting of this n ote is different from the original. [facility] Emergency Department Note Patient Name: Shelley Frank Date of : 1980 42 year old female Treatment Room: [place] [address] Primary Care Physician: Margaret Hernandez Patient Escorted by: Family [5] Mode of Arrival: Personal means [1] EMS Treatment Prior to ED Arrival: BOX LOADER treatment: None Travel and Exposure Screening: Symptoms Does patient have any of these symptoms?: (not recorded) Exposure Screening Has patient had contact with someone with a communicable disease in the last month?: (not recorded) Diseases exposed to:: (not recorded) Is Patient ?: (not recorded) Exposure Date: (not recorded) Chief Complaint: Chief Complaint Patient presents with Vomiting Dehydration History of Present Illness: 42-year-old female presenting for evaluation of intractable nausea and vomiting. Patient has a history of cyclical vomiting secondary to diabetes and eosinophilic esophagitis. States that she is out of her antiemetic medications. States that she has been vomiting continuously for the last 2 days. She presented tachycardic. Normal blood pressure. States that these are her typical symptoms when she has these episodes. No blood. 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 Comments: vaps Vaping Use Every day; Substances: THC, CBD Alcohol Use Yes; 1.0 standard drink of alcohol per week; 1 Glasses of wine. Comments: 3x a month 4-5 glasses Drug Use Never. Sexual Activity Sexually active; Partners: Male; Control/Protection: I.U.D.. Past Surgical History: Past Surgical History: Procedure Laterality Date ABDOMEN SURGERY PROC UNLISTED 2009 gastric sleeve CERVICAL EPIDURAL STEROID INJECTION N/A 01/21/2023 Surgeon: Zayda Hudson MD; Location: [facility] OR LOCATION CHOLECYSTECTOMY CONIZATION CERVIX,LOOP ELECTRD 1996 Review of Systems: Review of Systems Constitutional: Negative for chills, fatigue and fever. HENT: Negative for sore throat. Eyes: Negative for pain. Respiratory: Negative for cough, chest tightness, shortness of breath and stridor. Breasts: Negative for pain. Cardiovascular: Negative for chest pain and palpitations. Gastrointestinal: Positive for nausea and vomiting. Negative for abdominal pain, constipation and diarrhea. Genitourinary: Negative for bladder incontinence and difficulty urinating. Musculoskeletal: Negative for back pain. Skin: Negative for color change. Neurological: Negative for dizziness, seizures, weakness, light-headedness and headaches. Physical Exam: ED Triage Vitals [01/30/23 0734] Weight 98.9 kg (218 lb) Actual or estimated Height BP (!) 143/105 Pulse 135 Resp 20 Temp 36.8 ?C (98.2 ?F) Temp src SpO2 99 % Measured on Physical Exam Vitals and nursing note reviewed. Constitutional: General: She is not in acute distress. Appearance: She is well-developed. She is not diaphoretic. HENT: Head: Normocephalic and atraumatic. Right Ear: External ear normal. Left Ear: External ear normal. Nose: Nose normal. Eyes: General: No scleral icterus. Conjunctiva/sclera: Conjunctivae normal. Pupils: Pupils are equal, round, and reactive to light. Cardiovascular: Rate and Rhythm: Regular rhythm. Tachycardia present. Heart sounds: Normal heart sounds. Pulmonary: Effort: Pulmonary effort is normal. Breath sounds: Normal breath sounds. Abdominal: General: Bowel sounds are normal. Palpations: Abdomen is soft. Tenderness: There is no abdominal tenderness. Musculoskeletal: General: Normal range of motion. Cervical back: Normal range of motion and neck supple. Skin: General: Skin is warm and dry. Neurological: Mental Status: She is alert and oriented to person, place, and time. Cranial Nerves: No cranial nerve deficit. Deep Tendon Reflexes: Reflexes are normal and symmetric. Psychiatric: Behavior: Behavior normal. Thought Content: Thought content normal. Radiology: CT ABDOMEN PELVIS W CONTRAST Final Result EXAM: CT ABDOMEN/PELVIS WITH CONTRAST HISTORY: Presenting with vomiting since last Thursday. Elevated white blood cell count COMPARISON: TECHNIQUE AND FINDINGS: Contiguous axial imaging from the level of the lung bases through the proximal thighs was performed after the administration of intravenous contrast Coronal and sagittal reconstructions were obtained. FINDINGS: LOWER THORAX: The lungs bases are clear. No cardiomegaly. LIVER: Hepatomegaly measuring 19.0 cm in craniocaudal dimensions. No focal hepatic lesions. Normal contour. GALLBLADDER AND BILIARY TREE: No biliary ductal dilation. Cholecystectomy clips are noted. SPLEEN: Subcentimeter calcified granuloma. No splenomegaly. PANCREAS: No ductal dilation or masses. ADRENAL GLANDS: Normal right adrenal gland approximately 12 mm nodule in the left adrenal gland, not adequately characterized on this single phase CT. KIDNEYS: Bilateral symmetrical enhancement. No hydronephrosis, stones, or masses. GI TRACT: Changes of gastric sleeve surgery are noted. No dilation or wall thickening. The appendix is normal. A small hiatal hernia is noted. PELVIS/BLADDER: An IUD is in place.. PERITONEUM AND RETROPERITONEUM: No free air or fluid. LYMPH NODES: No lymphadenopathy. VESSELS: Unremarkable. BONES AND SOFT TISSUES: No suspicious lytic or sclerotic bony lesions. Small fat-containing umbilical hernia IMPRESSION 1. No CT findings to explain patient's symptoms. Normal appendix. 2. Small hiatal hernia. 3. Hepatomegaly. Preliminary Report Dictated by Resident: Landon Weir I, Karthikeyan Wood MD., have reviewed this study and agree with the above report. Lab Results: Lab Results CBC WITH DIFF - Abnormal Result Value Ref Range WBC 13.29 (*) 4.30 - 11.10 10*3/?L RBC 5.07 3.93 - 5.25 10*6/?L HGB 16.4 (*) 11.6 - 15.0 g/dL HCT 47.3 (*) 35.7 - 45.2 % MCV 93.3 80.6 - 95.5 fL MCH 32.3 25.9 - 32.8 pg MCHC 34.7 31.6 - 35.1 g/dL RDW-SD 42.5 39.0 - 49.9 fL RDW-CV 12.3 12.0 - 15.5 % PLT 444 (*) 166 - 358 10*3/?L MPV 9.3 (*) 9.5 - 12.9 fL NRBC/100 WBC 0.0 0.0 - 10.0 /100 WBCs NRBC x10^3 <0.01 10*3/?L GRAN MAT (NEUT) % 56.3 % IMM GRAN % 0.50 % LYMPH % 30.3 % MONO % 11.6 % EOS % 0.5 % BASO % 0.8 % GRAN MAT x10^3(ANC) 7.48 (*) 1.88 - 7.09 10*3/uL IMM GRAN x10^3 0.06 0.00 - 0.06 10*3/uL LYMPH x10^3 4.03 (*) 1.32 - 3.29 10*3/uL MONO x10^3 1.54 (*) 0.33 - 0.92 10*3/uL EOS x10^3 0.07 0.03 - 0.39 10*3/uL BASO x10^3 0.11 (*) 0.01 - 0.07 10*3/uL ELLIPTO/OVAL 2+ (*) (none) REACT LYMPHS Moderate TOXIC CHANGES Present (*) GIANT PLATELETS Present (*) (none) COMP. METABOLIC PANEL (68272) - Abnormal NA 140 135 - 145 mmol/L K 3.7 3.5 - 5.0 mmol/L CL 98 98 - 108 mmol/L CO2 TOTAL 26 23 - 31 mmol/L AGAP 16 2 - 16 BUN 14 7 - 23 mg/dL GLUCOSE 120 (*) 70 - 110 mg/dL CREATININE 0.83 0.50 - 1.04 mg/dL TOTAL BILI 1.0 0.1 - 1.1 mg/dL CALCIUM 10.2 8.6 - 10.6 mg/dL T PROTEIN 8.2 6.3 - 8.2 g/dL ALBUMIN 4.9 3.5 - 5.0 g/dL ALK PHOS 37 34 - 122 U/L ALTv 38 (*) 5 - 35 U/L AST(SGOT) 45 (*) 13 - 40 U/L eGFR 74.7 mL/min/1.73m2 URINALYSIS - Abnormal APPEARANCE Hazy (*) Clear COLOR Ynes (*) Yellow PH 6.0 4.8 - 8.0 SP GRAVITY 1.018 1.003 - 1.030 GLU U QUAL Normal Normal BLOOD 1+ (*) Negative KETONES 80 mg/dL (*) Negative PROTEIN Negative Negative UROBILIN Normal Normal BILIRUBIN Negative Negative NITRITE Negative Negative LEUK DAVID Negative Negative RBC/HPF 6 (*) 0 - 3 HPF WBC/HPF 3 0 - 5 HPF BACTERIA Negative Negative MUCOUS Marked (*) Negative LPF SQ EPITH 3 HPF POCT TEST - Normal POCT PREG Negative On board controls acceptable with C Line Yes POCT PREG LOT # [id number] POCT PREG TEST DATE 06/12/24 EKG: If EKG completed, see Procedure Note. Orders and Treatments: Orders Placed This Encounter Procedures CT ABDOMEN PELVIS W CONTRAST CBC WITH DIFF COMP. METABOLIC PANEL (58047) POCT TEST URINALYSIS Orders Placed This Encounter Medications haloperidol lactate (HALDOL) injection 5 mg pantoprazole (PROTONIX) 80 mg in NaCl 0.9% (NS) 20 mL syringe NaCl 0.9% (NS) bolus infusion 1,000 mL diphenhydrAMINE (BENADRYL) injection 25 mg iopamidol (ISOVUE 370-500 mL) injection 60 mL metoclopramide HCl 10 mg tablet First Provider Eval: ED Events Date/Time Event User Comments 01/30/23 0733 Medical Screening Begins BALJINDER COLEMAN -- 01/30/23 0733 First Provider Evaluation BALJINDER COLEMAN -- No notes of EC Admission Criteria type on file. ED COURSE Diagnosis/Impression as of 01/30/23 1136 Cyclical vomiting Dehydration Gastroparesis Procedures: Procedures MDM: Medical Decision Making 42-year-old female with likely cyclical vomiting secondary to gastroparesis from diabetes. Symptoms improved in the emergency department. CT scan without acute emergent findings. IV fluids given. Heart rate normalized. Patient stable for discharge. Prescription for Reglan given. Follow-up outpatient for further evaluation and management. Return precautions given if symptoms worsen as documented discharge instructions. Problems Addressed: Cyclical vomiting: acute illness or injury with systemic symptoms Dehydration: acute illness or injury Gastroparesis: acute illness or injury Amount and/or Complexity of Data Reviewed Labs: ordered. Radiology: ordered. Risk Prescription drug management. Flowsheet Documentation: Scoring Tools: No data recorded Disposition/Condition: ED Disposition ED Disposition Disch - Home Condition Stable Comment -- Discharge Medications: Patient's Medications START taking these medications METOCLOPRAMIDE HCL 10 MG TABLET Take 1 tablet by mouth every 6 (six) hours. CONTINUE taking these medications which have NOT CHANGED AZELAIC URYS-[id number] N CREAM Apply to area(s) daily. BUPROPION XL 150 MG 24 HR TABLET GABAPENTIN 300 MG CAPSULE Take 1 capsule by mouth in the morning and 1 capsule at noon and 1 capsule in the evening. HYDROCHLOROTHIAZIDE 12.5 MG CAPSULE 1 tablet in the morning Orally Once a day HYDROXYZINE 50 MG TABLET Take 1 tablet by mouth 3 (three) times daily as needed for Itching. LAMOTRIGINE (LAMICTAL ORAL) Take by mouth. LEVONORGESTREL (MIRENA INTRAUTERINE) Mirena LISINOPRIL 20 MG TABLET Take 1 tablet by mouth in the morning. MELOXICAM 7.5 MG TABLET 1 tablet Orally Once a day for 30 day(s) METFORMIN 500 MG/5 ML SOLUTION Take 5 mL by mouth in the morning and 5 mL in the evening. Take with meals. METHOCARBAMOL 500 MG TABLET 1 tablet Orally Four times a day METOPROLOL SUCCINATE XL 50 MG 24 HR TABLET Take 2 tablets by mouth in the morning. OMEPRAZOLE ORAL Take 20 mg/day by mouth. ONDANSETRON HCL (ZOFRAN ORAL) Take by mouth. ROSUVASTATIN (CRESTOR) 20 MG TABLET Take 1 tablet by mouth at bedtime. TRAZODONE 50 MG TABLET TRULICITY 3 MG/0.5 ML PNIJ INJECT 3 ML SUBCUTANEOUSLY ONCE WEEKLY FOR 28 DAYS VORTIOXETINE (TRINTELLIX) 20 MG TAB Take by mouth. START taking Modified Medications as Prescribed No medications on file STOP taking these medications No medications on file Follow-up: Contact information for follow-up Margaret Hernandez Specialty: FM-FAMILY MEDICINE Relationship: PCP - General [address] [facility] [address] [facility] [id number] Instructions: For follow up of the presenting symptoms. [facility] Department Specialty: Emergency Medicine [address] [place] [id number] Instructions: If symptoms worsen as documented in the discharge Electronically signed by: Baljinder Coleman DO 01/30/23 1136 [facility] 2023-01-14 12:25:58 Formatting of this n ote might be different from the original. Med deutsch at 1100. [facility] 2023-01-14 12:23:37 Formatting of this n ote might be different from the original. Images from the original note were not included. Procedure is at: [place] [id number]. The Day Surgery is location on the left corner of [facility] closest to the [facility]. On that NW corner you will see a sign that states "Surgery". Please go inside that door and sign in at that desk. Do not eat anything the morning of your procedure starting at Midnight or 8 hours before arrival time, which ever is longer. You may drink water, sprite or gatorade the morning of the procedure, but only up until a certain point. Do not drink anything within 2 hours of your arrival. You may take your medications as instructed below with a sip of water unless otherwise directed by physician. MAC Cases may continue Diuretics. Anticoagulants will be per physician Guidance. Report to [facility], [address] [place] [id number], Day Surgery Unit on 01-21-23 [facility] will call you the business day before your procedure to let you know what time to arrive. Please note: You may not travel home alone and that includes in a taxi, bus, or Uber. We must speak to your Responsible Adult before your procedure the morning of your procedure. [facility]
--- NOTE | 2025-04-07 10:04 | RAD REPORT ---
EXAMINATION: ONE VIEW CHEST XR CLINICAL INDICATION: Female, 44 years old.,PALPITATIONS TECHNIQUE: Frontal chest projection is submitted. Examination is limited by patient positioning and t echnique. COMPARISON: 04/16/2021 FINDINGS: The lungs are well inflated and clear. No pneumothorax or sizable effusion. The heart is normal in s ize. Mediastinal contours are unremarkable. IMPRESSION: No acute intrathoracic abnormalities.
[2025-04-07 10:12] LABS: Absolute Lymphocytes (CBC) 1.4 K/uL (0.7-4.9); Hematocrit 39.1 % (36.0-45.0); Hemoglobin 13.2 g/dL (12.0-15.0); MCH 33.0 pg (27.0-35.0); MCHC 33.7 g/dL (32.0-36.0); MCV 97.9 fL (80-100); MPV 7.4 fL (7.6-11.3); Nucleated RBC Absolute Count 0.0 (0-0); Nucleated Red Blood Cells % 0.1 % (0-0); RBC Red Blood Cell Count 4.00 M/uL (3.86-4.86); White Blood Count 6.90 thou/uL (4.3-10.9)
[2025-04-07 10:38] LABS: ALT/SGPT 64 U/L (13-56); AST/SGOT 49 U/L (15-37); Albumin 3.1 g/dL (3.4-5.0); Albumin/Globulin Ratio 1.0 (1.1-1.8); Alkaline Phosphatase 37 U/L (45-117); Anion Gap 13.2 mEq/L (5.0-15.0); BUN Blood Urea Nitrogen 11 mg/dL (7-18); Globulin 3.1 g/dL (2.3-3.5); Glucose Level 138 mg/dL (74-106); Magnesium 1.8 mg/dL (1.6-2.4); Potassium 4.2 mEq/L (3.5-5.1); Troponin High Sensitivity 4.2 pg/mL (<58.9)
[2025-04-07 10:39] LABS: Bilirubin Indirect, Calculated 0.3 mg/dL (0.2-0.8)
[2025-04-07] MEDS ORDERED: MECLIZINE HCL 12.5 MG TAB ONE (11:29)
--- NOTE | 2025-04-07 12:05 | RAD REPORT ---
EXAM: CT Head Brain Wo Cont HISTORY: NUMBNESS COMPARISON: 09/06/2020 TECHNIQUE: Multiple contiguous axial images were obtained for a CT of the brain without contrast. Sag ittal and coronal reformats were performed. One or more of the following dose reduction techniques were used: Automated exposure control, adjus tment of the mA and kV according to patient size, and iterative reconstruction. Unless otherwise specified, incidental findings do not require dedicated imaging follow-up. FINDINGS: No evidence of hydrocephalus, intracranial hemorrhage, or extra-axial fluid collection. The brain is normal in morphology. The calvarium is intact. The visualized paranasal sinuses and mastoid air cells are essentially clear . IMPRESSION: No evidence of acute intracranial abnormality.
--- NOTE | 2025-04-07 12:40 | ER ---
Nurse's Notes [facility] Name: Shelley Frank Age: 44 yrs Sex: Female : 1980 Arrival Date: 04/07/2025 Time: 08:48 Bed 7 Private MD: Diagnosis: Transient cerebral ischemic attack, unspecified Presentation: 04/07 09:03 Chief complaint: EMS states: TONED OUT TO PATIENTS HOME DUE TO PATIENT HAVING cm10 PALPITATIONS, DIZZY AND WEAK. PT STATES THAT SHE HAD A NEW BRAND OF DELTA 8 GUMMY LAST NIGHT. PT STATES THAT SHE ALSO TOOK MELATONIN 3MG THIS MORNING DUE TO WAKING UP AND STILL FEELING LIKE SHE NEEDED MORE SLEEP. Coronavirus screen: Client denies travel out of the [place] in the last 14 days. Ebola Screen: No symptoms or risks identified at this time. Initial Sepsis Screen: Does the patient meet any 2 criteria? No. Patient's initial sepsis screen is negative. Does the patient have a suspected source of infection? No. Patient's initial sepsis screen is negative. Risk Assessment: Do you want to hurt yourself or someone else? Patient reports no desire to harm self or others. Onset of symptoms was April 07, 2025. Care prior to arrival: Medication(s) given: Normal saline infusion, 100mL IV initiated. 20 GA, in the left antecubital area. 09:03 Method Of Arrival: EMS: [facility] cm10 09:03 Acuity: LEONEL 3 cm10 Triage Assessment: 09:09 General: Appears in no apparent distress. comfortable, Behavior is calm, cooperative. cm10 Neuro: No deficits noted. Level of Consciousness is awake, alert, obeys commands, Oriented to person, place, time, situation, Appropriate for age. Neuro: Reports dizziness, weakness. Respiratory: No deficits noted. Airway is patent Respiratory effort is even, unlabored, Respiratory pattern is regular, symmetrical. Derm: No deficits noted. Skin is pink, warm \T\ dry. 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 - Infectious Disease History:: Denies. - Social history:: Smoking status: unknown. Screenin:08 [facility] ED Fall Risk Assessment (Adult) History of falling in the last 3 months, cm10 including since admission No falls in past 3 months (0 pts) Confusion or Disorientation No (0 pts) Intoxicated or Sedated No (0 pts) Impaired Gait Yes (1 pt) Mobility Assist Device Used No (0 pt) Altered Elimination No (0 pt) Score/Fall Risk Level 0 - 2 = Low Risk Oriented to surroundings, Maintained a safe environment, Hourly rounding (assess needs \T\ fall precautionary measures) done. Abuse screen: Denies threats or abuse. Denies injuries from another. Nutritional screening: No deficits noted. Tuberculosis screening: No symptoms or risk factors identified. 11:30 [place] Swallow Protocol Exclusion Criteria: Unable to remain alert for testing: No NPO cm10 for medical/surgical reason by provider order No Tracheostomy tube present No No thin liquids due to preexisting dysphagia/baseline modified diet thickened liquids No Exclusion Criteria Result: Proceed Brief Cognitive Screen What is your name? Normal, Where are you right now? Normal, What year is it? Normal. Oral Mechanism Examination Facial Symmetry: Normal, Motion: Normal, Lip Closure: Normal, Oral Mechanism Result: Normal. 3 oz Water Swallow Challenge: Pt able to drink all water without stopping, coughing, choking or throat clearing: Yes Result: PASS. Assessment: 09:15 Reassessment: Patient appears in no apparent distress at this time. Patient and/or db family updated on plan of care and expected duration. Pain level reassessed. Patient is alert, oriented x 3, equal unlabored respirations, skin warm/dry/pink. General: Appears in no apparent distress. comfortable, Behavior is calm, cooperative. Pain: Denies pain. Neuro: Level of Consciousness is awake, alert, obeys commands, Oriented to person, place, time, situation. Respiratory: Airway is patent Respiratory effort is even, unlabored, Respiratory pattern is regular, symmetrical. 11:25 Reassessment: Patient appears in no apparent distress at this time. Patient and/or nh2 family updated on plan of care and expected duration. Pain level reassessed. Patient is alert, oriented x 3, equal unlabored respirations, skin warm/dry/pink. 11:34 Reassessment: Patient appears in no apparent distress at this time. Patient and/or db family updated on plan of care and expected duration. Pain level reassessed. Patient is alert, oriented x 3, equal unlabored respirations, skin warm/dry/pink. 12:07 Reassessment: Patient appears in no apparent distress at this time. Patient and/or db family updated on plan of care and expected duration. Pain level reassessed. Patient is alert, oriented x 3, equal unlabored respirations, skin warm/dry/pink. 13:00 Reassessment: Patient appears in no apparent distress at this time. Patient and/or cm10 family updated on plan of care and expected duration. Pain level reassessed. Patient is alert, oriented x 3, equal unlabored respirations, skin warm/dry/pink. 15:00 Reassessment: Patient appears in no apparent distress at this time. Patient and/or cm10 family updated on plan of care and expected duration. Pain level reassessed. Patient is alert, oriented x 3, equal unlabored respirations, skin warm/dry/pink. Vital Signs: 09:03 BP 139 / 76; Pulse 114; Resp 17; Temp 98.9(O); Pulse Ox 95% on R/A; Weight 136.08 kg; cm10 Height 5 ft. 6 in. ; Pain 5/10; 09:18 BP 151 / 81 Supine; Pulse 108; db 09:20 BP 139 / 72 Sitting; Pulse 110; db 09:22 Pulse 131; db 10:00 BP 138 / 63; Pulse 102; Resp 20; Pulse Ox 97% ; nh2 10:30 BP 133 / 70; Pulse 93; Resp 20; Pulse Ox 95% on R/A; nh2 11:00 BP 130 / 73; Pulse 92; Resp 18; Pulse Ox 100% on R/A; nh2 12:00 BP 129 / 72; Pulse 94; Resp 20; Pulse Ox 96% on R/A; db 14:00 BP 138 / 88; Pulse 95; Resp 18; Pulse Ox 100% on R/A; db 16:39 BP 131 / 81; Pulse 87; Resp 19; Temp 98(TE); Pulse Ox 96% on R/A; nh2 09:03 Body Mass Index 48.42 (136.08 kg, 167.64 cm) cm10 09:03 Pain Scale: Adult cm10 09:22 UNABLE TO COMPLETE STANDING ORTHOSTATIC DUE TO PT BECAME DIZZY. NOTIFIED PROVIDER joselin SOOD NP Vitals: 09:15 Cardiac Rhythm Assessment Sinus rhythm. db ED Course: 08:52 Patient arrived in ED. cm10 08:53 [facility]C [facility] kb 08:53 Sukumar Barriga DO is Attending Physician. kb 09:01 Lashaun Holliday, FABIANO is Primary Nurse. cm10 09:08 Triage completed. cm10 09:08 Arm band placed on right wrist. cm10 09:08 Patient has correct armband on for positive identification. Bed in low position. Call cm10 light in reach. Side rails up X 1. Client placed on continuous cardiac and pulse oximetry monitoring. NIBP monitoring applied. rn forensic on. 09:08 Maintain EMS IV. Dressing intact. Good blood return noted. Site clean \T\ dry. Gauge \T\ cm 10 site: 20G LEFT AC. Flushed with 10 mL NS. 09:12 Initial lab(s) drawn, by me, sent to lab. EKG done. db 09:52 Chest Single View XRAY In Process Unspecified. EDMS 11:[address] via stretcher. db 11:39 CT Head Brain wo Cont In Process Unspecified. EDMS 12:39 Nick Lomas MD is Hospitalizing Provider. kb 16:31 No provider procedures requiring assistance completed. Patient admitted, IV remains in cm10 place. 16:35 Provided Education on: Need for admit. cm10 Administered Medications: 09:09 Drug: NS 0.9% IV 1000 ml IV at 1000 ml once; may complete the NS that was started by cm10 EMS Route: IV; Rate: 1000 ml; Site: left antecubital; 10:00 Follow up: Response: No adverse reaction; IV Status: Completed infusion; IV Intake: cm10 1000ml 11:34 Drug: Meclizine PO 25 mg PO once Route: PO; db 12:04 Follow up: Response: No adverse reaction cm10 Medication: 09:08 VIS not applicable for this client. cm10 Intake: 10:00 IV: 1000ml; Total: 1000ml. cm10 Outcome: 12:39 Decision to Hospitalize by Provider. kb 16:31 Admitted to ER Hold. Please see [facility] for further documentation. cm10 16:31 Condition: good 16:31 Instructed on the need for admit, 17:53 Patient left the ED. cm10 Signatures: Dispatcher [employer] EDMS Barrie Cathy, TRUCK RENTAL MANAGER-C TRUCK RENTAL MANAGER-Ckb Stacey Casillas, RN RN db Lashaun Holliday, RN RN cm10 Lobo Lawrence Jr, RN RN nh2
--- NOTE | 2025-04-07 12:40 | EDPHYS ---
Physician Documentation [facility] Name: Shelley Frank Age: 44 yrs Sex: Female : 1980 Arrival Date: 04/07/2025 Time: 08:48 Bed 7 Private MD: ED Physician Sukumar Barriga HPI: 04/07 09:07 This 44 yrs old Female presents to ER via Unassigned with complaints of Palpitations. kb 09:07 Patient is a 44-year-old female who presents for palpitations, weakness and dizziness kb that started upon waking at 5:00 this morning. States she did a different type of delta 8 Gummies last night than she is used to. States she was very fatigued when she woke up so she took 3 melatonin tablets to try to go back to sleep. Denies chest pain, shortness of breath.. 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 - Infectious Disease History:: Denies. - Social history:: Smoking status: unknown. ROS: 09:06 Constitutional: As per HPI kb Exam: 09:06 Constitutional: This is a well developed, well nourished patient who is awake, alert, kb and in no acute distress. Head/Face: Normocephalic, atraumatic. ENT: Moist Mucous membranes Respiratory: Respirations even and unlabored. No increased work of breathing. Talking in full sentences Abdomen/GI: Soft, non-tender. No distention Skin: Warm, dry with normal turgor. Normal color. MS/ Extremity: Pulses equal, no cyanosis. Neurovascular intact. Full, normal range of motion. Neuro: Awake and alert, GCS 15, oriented to person, place, time, and situation. 09:06 Cardiovascular: Rate: tachycardic, 09:24 ECG was reviewed by the Attending Physician. kb 12:36 Eyes: Periorbital structures: appear normal, Pupils: equal, round, and reactive to kb light and accomodation, Extraocular movements: intact throughout, Nystagmus: Vital Signs: 09:03 BP 139 / 76; Pulse 114; Resp 17; Temp 98.9(O); Pulse Ox 95% on R/A; Weight 136.08 kg; cm10 Height 5 ft. 6 in. ; Pain 5/10; 09:18 BP 151 / 81 Supine; Pulse 108; db 09:20 BP 139 / 72 Sitting; Pulse 110; db 09:22 Pulse 131; db 10:00 BP 138 / 63; Pulse 102; Resp 20; Pulse Ox 97% ; nh2 10:30 BP 133 / 70; Pulse 93; Resp 20; Pulse Ox 95% on R/A; nh2 11:00 BP 130 / 73; Pulse 92; Resp 18; Pulse Ox 100% on R/A; nh2 12:00 BP 129 / 72; Pulse 94; Resp 20; Pulse Ox 96% on R/A; db 14:00 BP 138 / 88; Pulse 95; Resp 18; Pulse Ox 100% on R/A; db 16:39 BP 131 / 81; Pulse 87; Resp 19; Temp 98(TE); Pulse Ox 96% on R/A; nh2 09:03 Body Mass Index 48.42 (136.08 kg, 167.64 cm) cm10 09:03 Pain Scale: Adult cm10 09:22 UNABLE TO COMPLETE STANDING ORTHOSTATIC DUE TO PT BECAME DIZZY. NOTIFIED PROVIDER joselin SOOD NP MDM: 08:53 Medical Screening Exam initiated naz 09:07 Data reviewed: vital signs, nurses notes. Historians other than the Patient: EMS: [facility]. 12:36 Differential diagnosis: arrythmia, dehydration, stress disorder, tia, cva. naz Consideration of Admission/Observation Patient was admitted/placed on observation. Escalation of care including admission/observation considered. Management of patient was discussed with the following: Hospitalist: Hospitalist team, pt accepted for admission by Dr Lomas. Counseling: I had a detailed discussion with the patient and/or guardian regarding the historical points, exam findings, and any diagnostic results supporting the discharge/admit diagnosis, lab results, radiology results, the need for further work-up and treatment in the hospital. ED course: I went in to discuss results with pt and family was at bedside. Family reported pt had a facial droop, numbness and was slurring her words prior to arrival. States the symptoms lasted about 20 minutes and resolved before EMS arrived. CT ordered and was negative for acute findings. Will admit for TIA. 04/07 09:00 Order name: Basic Metabolic Panel; Complete Time: 10:40 kb 04/07 09:00 Order name: CBC with Diff; Complete Time: 10:18 kb 04/07 09:00 Order name: Hepatic Function; Complete Time: 10:40 kb 04/07 09:00 Order name: Magnesium; Complete Time: 10:40 kb 04/07 09:00 Order name: Troponin High Sensitivity; Complete Time: 10:40 kb 04/07 14:09 Order name: CBC with Automated Diff EDMS 04/07 14:09 Order name: CBC with Automated Diff EDMS 04/07 14:09 Order name: CBC with Automated Diff EDMS 04/07 14:09 Order name: Comprehensive Metabolic Panel EDMS 04/07 14:09 Order name: Comprehensive Metabolic Panel EDMS 04/07 14:09 Order name: Comprehensive Metabolic Panel EDMS 04/07 14:09 Order name: Lipid Profile EDMS 04/07 14:09 Order name: Lipid Profile EDMS 04/07 14:13 Order name: Hemoglobin A1c EDMS 04/07 14:13 Order name: Hemoglobin A1c EDMS 04/07 14:19 Order name: Thyroid Stimulating Hormone EDMS 04/07 14:19 Order name: Thyroid Stimulating Hormone EDMS 04/07 09:00 Order name: Chest Single View XRAY; Complete Time: 10:08 kb 04/07 11:28 Order name: CT Head Brain wo Cont; Complete Time: 12:07 kb 04/07 14:09 Order name: Brain With Cont EDMS 04/07 14:09 Order name: Carotid Artery Bilateral; Complete Time: 16:04 EDMS 04/07 14:23 Order name: Echo with Doppler EDMS 04/07 14:09 Order name: IRF Screen EDMS 04/07 14:09 Order name: Physical Therapy Consult EDMS 04/07 14:09 Order name: Speech Therapy Consult EDMS 04/07 09:00 Order name: Cardiac monitoring; Complete Time: 09:10 kb 04/07 09:00 Order name: EKG - Nurse/Tech; Complete Time: 09:14 kb 04/07 09:00 Order name: IV Saline Lock; Complete Time: 09:10 kb 04/07 09:00 Order name: Labs collected and sent; Complete Time: 09:15 kb 04/07 09:00 Order name: NPO; Complete Time: 09:10 kb 04/07 09:00 Order name: O2 Per Protocol; Complete Time: 09:10 kb 04/07 09:00 Order name: O2 Sat Monitoring; Complete Time: : kb 04/07 09:00 Order name: Orthostatics; Complete Time: 09:27 kb 04/07 10:41 Order name: Vital Signs; Complete Time: 11:34 kb EC:24 Rate is 109 beats/min. Rhythm is regular. QRS [place] is Normal. MS interval is normal at kb 134 msec. QRS interval is normal at 94 msec. QT interval is normal at 447 msec. Administered Medications: 09:09 Drug: NS 0.9% IV 1000 ml IV at 1000 ml once; may complete the NS that was started by cm10 EMS Route: IV; Rate: 1000 ml; Site: left antecubital; 10:00 Follow up: Response: No adverse reaction; IV Status: Completed infusion; IV Intake: cm10 1000ml 11:34 Drug: Meclizine PO 25 mg PO once Route: PO; 12:04 Follow up: Response: No adverse reaction cm10 Disposition: 14:53 I was immediately available on-site in the Emergency Department for consultation in the ms3 care of the patient. Disposition Summary: 04/07/25 12:39 Hospitalization Ordered Notes: Hospitalization Status: Observation kb Provider: Nick Lomas Condition: Stable kb Problem: new kb Symptoms: are unchanged kb Bed/Room Type: Standard kb Location: Telemetry/MedSurg (observation)(04/07/25 16:35) bd Room Assignment: 426(04/07/25 16:35) bd Diagnosis - Transient cerebral ischemic attack, unspecified kb Forms: - Medication Reconciliation Form kb - SBAR form kb - Leadership Thank You Letter kb Signatures: Dispatcher [employer] EDMS Cathy Sood, WAREHOUSE DRIVER-C WAREHOUSE DRIVER-Julissa Ramon Marcus, DO DO ms3 Oralia Almaraz, FABIANO RN kb3 Stacey Casillas, FABIANO RN db Lashaun Holliday RN RN cm10 Corrections: (The following items were deleted from the chart) 09:00 09:00 BASIC METABOLIC PANEL+C.LAB.BRZ ordered. EDMS EDMS 09:00 09:00 CBC+H.LAB.BRZ ordered. EDMS EDMS 09:00 09:00 HEPATIC FUNCTION+C.LAB.BRZ ordered. EDMS EDMS 09:00 09:00 MAGNESIUM+C.LAB.BRZ ordered. EDMS EDMS 09:00 09:00 Troponin High Sensitivity+C.LAB.BRZ ordered. EDMS EDMS 09:00 09:00 Chest Single View+RAD.RAD.BRZ ordered. EDMS EDMS 14:23 14:09 Echo with Doppler ordered. EDMS EDMS 14:54 12:39 Telemetry/MedSurg (observation) kb kb3 14:54 12:39 kb kb3 16:35 14:54 [facility] ER HOLD kb3 bd 16:35 14:54 ERHOLD- kb3 bd
[2025-04-07] MEDS ORDERED: ONDANSETRON 4 MG/2 ML VIAL IV PRN (14:01)
--- NOTE | 2025-04-07 14:16 | P.HP ---
Certification for Inpatient With expected LOS: <2 Midnights Practitioner: I am a practitioner with admitting privileges, knowledge of patient current condition, hospital course, and medical plan of care. Services: Services provided to patient in accordance with Admission requirements found in Title 42 Section 412.3 of the Code of Federal Regulations Patient History Date of Service: 04/07/25 Reason for admission: Evaluate for TIA History of Present Illness: 44-year-old patient presented with left facial numbness and weakness, left arm tingling, numbness, feeling tired and restless, there was some concern for TIA so we were asked to admit her. She gained approximately 100 pounds of weight in the last 1-1/2-year. She has chronic headaches but no recent change. Other than this she denies any other acute complaints. No blackouts. No double vision or blurry vision. No cough or sputum production. No chest pain or shortness of breath. No nausea or vomiting. No abdominal pain. No constipation or diarrhea. No blood in the urine or stool. No fever. No lower extremity edema. No joint pains. Review of systems: All other 10 point review of systems are negative other than as mentioned above. Allergies and medications: Reviewed, as per med rec EMR. Past medical history: Hypertension, POTS, anxiety and depression, prediabetes. Past surgical history: Tonsillectomy, cholecystectomy, hernia repair, gastric sleeve Social history: Drinks 3-4 times weekly, positive for vaping. Denies any drugs. Family history: Brother had a history of ND and CVA. Physical examination: Vital signs: Reviewed, as per EMR. General appearance: Alert and comfortable HEENT: Extraocular movements intact, oral mucosa moist. CVS: Normal S1-S2 Lungs: Clear to auscultation bilaterally Abdomen: Soft, bowel sounds present, no tenderness Extremities: No lower extremity edema CROTCH PIECE BASTER: Moves all 4 extremities, 5/5 power all 4 extremities, no obvious focal deficits, no facial weakness. Still complaining of some tingling and numbness in the left side of the face and left arm. Musculoskeletal: No obvious joint swelling or tenderness Physical Examination - Studies Laboratory Data (last 24 hrs) 04/07/25 04/07/25 09:12 09:12 WBC 6.90 Hgb 13.2 Hct 39.1 Plt Count 299 Sodium 137 Potassium 4.2 BUN 11 Creatinine 1.03 H Glucose 138 H Magnesium 1.8 Total Bilirubin 0.5 AST 49 H ALT 64 H Alkaline Phosphatase 37 L Assessment and Plan - Plan Assessment and plan: 1. Rule out TIA: CT head negative, will get a carotid Doppler and echocardiogram, will get an MRI scan, will request neurology consult, start aspirin, Plavix and statin for now. Will follow stroke protocol, get PT OT and speech therapy evaluations, monitor neurostatus closely. -Of note, she takes marijuana candies, I am not sure whether that is causing any of the symptoms. She also gained approximately 150 pounds in the last 1-1/2-year, will check TSH level 2. Anxiety and depression: Continue home medications 3. Prediabetes: Will check hemoglobin A1c. 4. Hypertension: Avoid hypotension at this time, she takes propranolol at home. 5. POTS syndrome: Continue home medications DVT prophylaxis: Heparin CODE STATUS: She would like to be full code I did discuss all the above plan with the patient and nursing staff, will admit her as observation for the time being. - Advance Directives Does patient have a Living Will: No Does patient have a Durable POA for Healthcare: No
--- NOTE | 2025-04-07 16:02 | RAD REPORT ---
EXAMINATION: US CAROTID DUPLEX CLINICAL INDICATION: , 44 years old. tia. TECHNIQUE: Real-time grayscale, color flow and spectral Doppler sonographic images were obtained of t extracranial carotid system using a linear transducer. [id number]. COMPARISON: No prior exam. FINDINGS: RIGHT: Common carotid artery: 76 cm/s Internal carotid artery: 62 cm/s External carotid artery: 77 cm/s Right ICA/CCA ratio: 0.8 Plaque None Vertebral artery Antegrade LEFT: Common carotid artery: 93 cm/s Internal carotid artery: 116 cm/s External carotid artery: 91 cm/s lEFT ICA/CCA ratio: 1.2 Plaque None Vertebral artery Antegrade IMPRESSION: No hemodynamically significant stenosis (greater than 50%) within the extracranial internal carotid a [facility].
[2025-04-07] MEDS ORDERED: NA CHLORIDE 0.9% 1,000 ML ONE (16:24)
[2025-04-07] MEDS: NA CHLORIDE 0.9% 1,000 ML IV SCH (16:46)
[2025-04-07] MEDS: ATORVASTATIN 40 MG TAB PO SCH (21:20)
[2025-04-07] MEDS: ACETAMINOPHEN 500 MG TAB PO PRN (21:46)
[2025-04-08] MEDS: LORazepam 2 MG/ML VIAL IV ONE ×2 (06:33→10:17)
[2025-04-08 07:04] LABS: Absolute Lymphocytes (CBC) 1.4 K/uL (0.7-4.9); Hematocrit 38.3 % (36.0-45.0); Hemoglobin 13.3 g/dL (12.0-15.0); MCH 33.3 pg (27.0-35.0); MCHC 34.7 g/dL (32.0-36.0); MCV 96.0 fL (80-100); MPV 6.6 fL (7.6-11.3); Nucleated RBC Absolute Count 0.0 (0-0); Nucleated Red Blood Cells % 0.1 % (0-0); RBC Red Blood Cell Count 3.99 M/uL (3.86-4.86); White Blood Count 5.40 thou/uL (4.3-10.9)
[2025-04-08 07:42] LABS: ALT/SGPT 55.0 U/L (13-56); AST/SGOT 30.0 U/L (15-37); Albumin 2.9 g/dL (3.4-5.0); Albumin/Globulin Ratio 1.0 (1.1-1.8); Alkaline Phosphatase 38.0 U/L (45-117); Anion Gap 7.8 mEq/L (5.0-15.0); BUN Blood Urea Nitrogen 8.0 mg/dL (7-18); Globulin 2.9 g/dL (2.3-3.5); Glucose Level 134.0 mg/dL (74-106); HDL Cholesterol 40.0 mg/dL (40-60); LDL Cholesterol, Calculated 152.0 mg/dL (<130); LDL Cholesterol,Calc NonReport 152.0; Potassium 3.8 mEq/L (3.5-5.1); Thyroid Stimulating Hormone 2.74 uIU/mL (0.358-3.740)
[2025-04-08] MEDS: CLOPIDOGREL 75 MG TABLET PO SCH (08:24)
[2025-04-08] MEDS: ASPIRIN EC 81 MG TAB PO SCH (08:24)
[2025-04-08] MEDS: ENOXAPARIN 40 MG/0.4 ML SQ SCH (08:25)
[2025-04-08 09:34] VITALS: O2SAT 98
[2025-04-08] MEDS: IBUPROFEN 400 MG TAB PO PRN (09:38)
--- NOTE | 2025-04-08 11:30 | RAD REPORT ---
EXAMINATION: MRI BRAIN WITHOUT CONTRAST CLINICAL INDICATION: eval for stroke TECHNIQUE: Multiplanar multisequence MR images of the brain were obtained without intravenous contras t. Unless otherwise specified, incidental findings do not require dedicated imaging follow-up. COMPARISON: No prior exam. FINDINGS: INTRACRANIAL: Diffusion-weighted images show no acute or early subacute infarction. No abnormal brain parenchymal signal. The ventricles are normal in size and morphology. No augmented susceptibility. There is no mass effect or midline shift. No abnormal extraaxial fluid collection. VASCULATURE: Normal signal voids in the larger intracranial arteries and dural venous sinuses. SINUSES: The paranasal sinuses and mastoid air cells are predominantly clear. BONE: The marrow signal pattern is within normal limits. IMPRESSION: Negative for acute CVA or other acute intracranial finding.
[2025-04-08] MEDS: PANTOPRAZOLE 40MG TABLET PO SCH (13:40)
[2025-04-08] MEDS: lamoTRIgine 100 MG TAB PO SCH (13:41)
--- NOTE | 2025-04-08 13:41 | P.PN ---
Subjective Date of Service: 04/08/25 Chief Complaint: Evaluate for TIA Subjective: No chest pain or shortness of breath. No nausea or vomiting. No abdominal pain. No obvious bleeding. Looks comfortable in the bed. Still complaining of fatigue and tired, left arm and left face tingling and numbness Objective: General appearance: Alert and comfortable CVS: Normal S1 and S2 Lungs: Clear to auscultation bilaterally Abdomen: Soft, bowel sounds present, no tenderness Extremities: No lower extremity edema DIGITAL MEDIA PLANNER: Moves all 4 extremities Physical Examination - Vital Signs Temperature: 98.2 F Blood Pressure: 125/58 Pulse: 92 Respirations: 16 Pulse Ox (%): 98 Assessment And Plan - Plan Assessment and plan: 1. Rule out TIA: CT head negative, - started on aspirin, Plavix and statin for now. - follow stroke protocol, get PT OT and speech therapy evaluations, monitor neurostatus closely. -Still complaining of symptoms, MRI negative, carotid ultrasound negative, echo pending -Of note, she takes marijuana candies, I am not sure whether that is causing any of the symptoms. - She also gained approximately 150 pounds in the last 1-1/2-year, TSH level normal 2. Anxiety and depression: Continue home medications 3. Prediabetes: A1c 5.8, monitor sugars closely. 4. Hypertension: Avoid hypotension at this time, she takes propranolol at home. 5. POTS syndrome: Continue home medications DVT prophylaxis: Heparin CODE STATUS: She would like to be full code I did discuss all the above plan with the patient and nursing staff.
[2025-04-08] MEDS: TRAZODONE 50 MG TABLET PO SCH (20:53)
[2025-04-08 22:39] VITALS: BMI 49.0
[2025-04-09 07:14] LABS: Absolute Lymphocytes (CBC) 1.7 K/uL (0.7-4.9); Hematocrit 37.3 % (36.0-45.0); Hemoglobin 12.7 g/dL (12.0-15.0); MCH 32.8 pg (27.0-35.0); MCHC 34.0 g/dL (32.0-36.0); MCV 96.7 fL (80-100); MPV 7.0 fL (7.6-11.3); Nucleated RBC Absolute Count 0.0 (0-0); Nucleated Red Blood Cells % 0.0 % (0-0); RBC Red Blood Cell Count 3.86 M/uL (3.86-4.86); White Blood Count 5.60 thou/uL (4.3-10.9)
[2025-04-09 07:32] LABS: ALT/SGPT 53.0 U/L (13-56); AST/SGOT 36.0 U/L (15-37); Albumin 2.8 g/dL (3.4-5.0); Albumin/Globulin Ratio 1.0 (1.1-1.8); Alkaline Phosphatase 37.0 U/L (45-117); Anion Gap 7.6 mEq/L (5.0-15.0); BUN Blood Urea Nitrogen 9.0 mg/dL (7-18); Globulin 2.9 g/dL (2.3-3.5); Glucose Level 136.0 mg/dL (74-106); Potassium 3.6 mEq/L (3.5-5.1)
[2025-04-09 09:17] VITALS: BP 142/77; TEMP 98.4
--- NOTE | 2025-04-09 11:00 | P.DS ---
Admission Date: 04/07/25 Discharge Date: 04/09/25 Disposition: ROUTINE DISCHARGE Discharge Condition: GOOD Reason for Admission: Evaluate for TIA Brief History of Present Illness: Patient is a 44-year-old female with PMH of HTN, hyperlipidemia, depression, headaches, POTS syndrome, and Anxiety, who presented to the ER after having left facial numbness and weakness, left arm tingling, numbness, and feeling tired and restless. Patient had also reported gaining approximately 100lbs over the last 1-1/2-years. There was a concern for TIA and neurology was consulted while inpatient. Hospital Course: Rule out TIA - CT head was negative - Echocardiogram; EF 55 to 60% with left ventricle cavity size normal and wall thickness mildly increased. LV systolic function normal. Recommended follow-up with cardiology outpatient due to previous cardiology history - MRI scan negative - Neurology was consulted with recs for start and continuance of aspirin, Plavix and Atorvastatin with outpatient follow up in one week - Patient reported marijuana "candy" use and was advised against continued use at this time - TSH level normal Anxiety and depression - Continue home medications bupropion, vilazodone, and propranolol Pre-diabetes - A1c 5.8% - Recommended outpatient PCP follow up - Recommended diet/lifestyle changes Hypertension - Normo-tensive while inpatient however became mildly hypertensive prior to discharge - Continue home med propranolol - Instructed to monitor blood pressure closely at home - Follow-up with PCP and cardiology outpatient POTS syndrome - Continue home medications Vital Signs/Physical Exam: Temp Pulse Resp BP Pulse Ox 98.4 F 63 16 142/77 H 95 04/09/25 08:00 04/09/25 08:00 04/09/25 08:00 04/09/25 08:00 04/09/25 08:00 General: Alert, In no apparent distress, Obese HEENT: Atraumatic, PERRLA, EOMI Neck: Supple, JVD not distended Respiratory: Clear to auscultation bilaterally, Normal air movement Cardiovascular: Regular rate/rhythm, Normal S1 S2 Capillary refill: <2 Seconds Gastrointestinal: Normal bowel sounds, No tenderness Musculoskeletal: No tenderness Integumentary: No rashes Neurological: Normal speech, Normal tone, Normal affect External genitalia: Deferred Rectal: Deferred Laboratory Data at Discharge: WBC 5.60 thou/uL (4.3-10.9) 04/09/25 06:54 Hgb 12.7 g/dL (12.0-15.0) 04/09/25 06:54 Hct 37.3 % (36.0-45.0) 04/09/25 06:54 Plt Count 237 thou/uL (152-406) 04/09/25 06:54 Sodium 140 mEq/L (136-145) 04/09/25 06:54 Potassium 3.6 mEq/L (3.5-5.1) 04/09/25 06:54 BUN 9 mg/dL (7-18) 04/09/25 06:54 Creatinine 0.82 mg/dL (0.55-1.02) 04/09/25 06:54 Glucose 136 mg/dL (74-106) H 04/09/25 06:54 Magnesium 1.8 mg/dL (1.6-2.4) 04/07/25 09:12 Total Bilirubin 0.5 mg/dL (0.2-1.0) 04/09/25 06:54 AST 36 U/L (15-37) 04/09/25 06:54 ALT 53 U/L (13-56) 04/09/25 06:54 Alkaline Phosphatase 37 U/L (45-117) L 04/09/25 06:54 Triglycerides 325 mg/dL (<150) H 04/08/25 06:55 Cholesterol 257 mg/dL (<200) H 04/08/25 06:55 HDL Cholesterol 40 mg/dL (40-60) 04/08/25 06:55 Cholesterol/HDL Ratio 6.43 04/08/25 06:55 Home Medications: Bupropion HCl [Budeprion Xl] 300 mg PO DAILY 04/07/25 Ibuprofen 800 mg PO Q6HR PRN 04/07/25 Omeprazole 20 mg PO DAILY 04/07/25 Propranolol [Inderal*] 10 mg PO BID 04/07/25 Trazodone [Desyrel*] 200 mg PO BEDTIME 04/07/25 Vilazodone HCl 40 mg PO DAILY 04/07/25 lamoTRIgine [Lamotrigine] 300 mg PO DAILY 04/07/25 Atorvastatin Calcium [Lipitor] 40 mg PO BEDTIME tab 04/09/25 Clopidogrel Bisulfate [Plavix*] 75 mg PO DAILY 30 Days 04/09/25 New Medications: Clopidogrel Bisulfate [Plavix*] 75 mg PO DAILY 30 Days Physician Discharge Instructions: Follow-up with neurology Dr. Mazariegos within 1 week. Follow-up with cardiology outpatient within 1 to 2 weeks. Continue to take aspirin and Plavix as prescribed. Follow recommended diet and exercise regimen as discussed by [facility] medicine team. Diet: ADA Activity: Ad kasey Followup: Cesar Mazariegos MD [ASSOCIATE-ACTIVE - CAN ADMIT] - Roger Santiago MD [ACTIVE - CAN ADMIT] - NONE,NONE [UNKNOWN] - (Please see list of family doctors in our area listed below.) Time spent managing pt's care (in minutes): 38
== END 2025-04-09 10:51 | disposition home or self-care (01) ==
LOC: ER 08:48 → ERHOLD 14:01 → 4TH 17:37
PROVIDERS: ADMIT Hospitalist; ATTEND Hospitalist
DX: R20.0 Anesthesia of skin (principal); R53.1 Weakness; R45.1 Restlessness and agitation; I10 Essential (primary) hypertension; F41.9 Anxiety disorder, unspecified; F32.A Depression, unspecified; R73.03 Prediabetes; G90.A Postural orthostatic tachycardia syndrome [POTS]; E78.5 Hyperlipidemia, unspecified
CPT/HCPCS: 36415; 70450; 70551; 71045; 80048; 80053; 80061; 80076; 82947; 83036; 83735; 84443; 84484; 85025; 92610; 93005; 93306; 93880; 96360; 97116; 97161; 99285; G0378; J1650; J7030; J8597